=== PATIENT | male | born 1950 | race Caucasian/White ===

== ENCOUNTER 2016-09-24 00:24 | Inpatient (IN) | payer OTHER ==
[~2016-09-24] VITALS: Ht 175.3 cm; Wt 84.5 kg
--- NOTE | 2016-09-24 03:33 | NUR ---
PT ARRIVED TO ROOM 119 FROM ER VIA STRETCHER. TALKATIVE, STRONG SMELL ALCOHOL. FELL "COUPLE DAYS AGO". STATES HE DRINKS ONLY ON THE WEEKENDS BUT DRINK 1/2 GALLON WHISKEY WHEN HE DRINKS. STATES HE ONLY EATS ONE MEAL A DAY. LIKES HIS TV, AND LIKES TO SMOKE. RIGHT LEG SPLITED, INDWELLING WATKINS. PLAN SURGERY IN AM.
--- NOTE | 2016-09-24 03:37 | NUR ---
PT ARRIVED ON FLOOR ABOUT 0315. PT IS ALERT AND ORIENTED X4. PT IS NEUROLOGICALLY INTACT, CIWA IS A 0 AT THIS TIME. PAIN IS TOLERABLE AT THIS TIME STATED BY PT. PT IS NPO AT THIS TIME. PRE OP BATH WILL BE GIVEN IN A FEW MINUTES. ALL LOBES ARE CLEAR, DORSALIS PEDIS IS +2 ON RLE, LEG IMMOBILIZER IS IN PLACE.
--- NOTE | 2016-09-24 04:50 | NUR ---
PT ARRIVED ON FLOOR AROUND 0315. V/S ARE WNL, PRE-OP BATH HAS BEEN DONE, PRE-OP CHECKLIST HAS BEEN DONE FAR POSSIBLE. PT IS ALERT AND ORIENTED. LEG IMMOBILIZER IS IN PLACE, GAUZE ON RIGHT KNEE IS BLOODY. CIWA THUS FAR HAS BEEN 0. DORSALIS PEDIS ON RIGHT FOOD IS +1 BUT TOES ARE WARM TO TOUCH. PT SEEMS STILL INTOXICATED AT THIS TIME. NO OTHER ISSUES HAVE BEEN NOTED AT THIS TIME.
--- NOTE | 2016-09-24 07:21 | NUR ---
REPORT RECIEVED FROM MISA MÉNDEZ. PT IS OFF FLOOR FOR SURGERY.
--- NOTE | 2016-09-24 09:14 | NUR ---
09/24/16 0914 Lu Shepard 0905 PATIENT ARRIVES TO PACU, AWAKE BUT CONFUSED. REORIENTED PATIENT TO HOSPITAL AND SITUATION ( THAT HE HAD A SEVERE BROKEN LEG, THAT WAS REPAIRED IN OR). PATIENT NOW ALERT AND ORIENTED X3. DENIES PAIN. MASK AT 10 LITERS. 0911 OXYGEN DECREASED TO 6 LITERS. PATIENT DENIES COMPLAINTS. ASKS QUESTIONS APPROPRIATELY.
--- NOTE | 2016-09-24 10:08 | NUR ---
PT TO FLOOR AT 0955 WITH RN FROM PACU. PT AWAKE AND TALKING. OXY MASK AT 4L. BLOOD SHOWING ON GAUZE APPROX PALM SIZED. EXTERNAL FIXATION IN PLACE. PT RATES PAIN 6/10 BUT DESATS WHEN GIVEN MEDS PER HAND TUFTER. PT ASKED FOR REMOTE. PULSE OX ON SATS 93%. PEDAL PULSE STRONG. WIGGLES TOES ON COMMAND.
--- NOTE | 2016-09-24 10:45 | NUR ---
PATIENT MEDICATED WITH 0.5 MG IV DILAUDID FOR 8/10 PAIN TO RIGHT LOWER EXTREMITY. PATIENT RESTING IN BED. CALL LIGHT IN REACH. DR LYNCH IN TO EVALUATE PATIENT. NOTIFIED PRIMARY RN.
--- NOTE | 2016-09-24 11:04 | NUR ---
VITAL SIGNS TAKEN, STARTED MAINTAINENCE IVF. PATIENT HAS A VISITOR AT BEDSIDE. PATIENT HAS REMOVED OXYGEN. ROOM AIR O2 SATS 90-92%. CONT PULSE OX IN PLACE.
--- NOTE | 2016-09-24 11:09 | NUR ---
PLACED PT ON 2L NC ROOM AIR O2 SATS 84%. AFTER ONE MINUTE SATS ARE 92%
--- NOTE | 2016-09-24 11:20 | EKG ---
[facility] [address] [facility] [place] [address] Signed Normal sinus rhythm Normal ECG No previous ECGs available Confirmed by OLIVE LYNCH MD ([id number]) on 09/24/2016 11:20:01 AM Electronically Signed By: OLIVE LYNCH MD 09/24/16 1120 PATIENT NAME: UMUMELE Nadine Electrocardiogram DATE OF : 52 PHYSICIAN: OLIVE LYNCH MD REPORT #: [id number] REPORT IS CONFIDENTIAL AND NOT TO BE RELEASED WITHOUT AUTHORIZATION
--- NOTE | 2016-09-24 11:25 | NUR ---
PT STATES HE IS UNCOMFORTABLE NOT NECESSARILY PAIN. RATES 5. HUNG TRANCEMIC ACID. DR LYNCH JUST FINISHED ASSESSING PT AND ORDERED SOME MEDS. AWAITING PHARM VERIFICATION.
--- NOTE | 2016-09-24 11:53 | NUR ---
PT DROWSY. WILL VISIT LATER.
--- NOTE | 2016-09-24 12:37 | NUR ---
PT BACK FROM CT. STATES IT WENT WELL AND FEELS OK. DRAINAGE ON DRESSING UNCHANGED.
--- NOTE | 2016-09-24 14:34 | NUR ---
PT SLEEPING SOUNDLY. UPDATE FROM STAFF, PATIENT LIVES ALONE. DOES NOT HAVE FAMILY INVOLVED. HAS A COUPLE FRIENDS THAT HAVE CALLED AND VISITED. CASE MANAGMENT WILL CONTINUE TO FOLLOW.
--- NOTE | 2016-09-24 14:51 | NUR ---
PT STATES HIS PAIN IS WELL CONTROLLED RIGHT NOW AND ORDERED DINNER. DENIES N\V OR ANY CONCERNS. PULSE STRONG. GAUZE SHOWS SLIGHTLY MORE DRAINAGE THAN BEFORE.
--- NOTE | 2016-09-24 15:17 | NUR ---
PT EATING LUNCH\DINNER TOLERATING WELL. VERY TALKATIVE. DENIES CONCERNS. RATES PAIN 5/10. GIVEN BEER WITH LUNCH AFTER CALLING HOSPITALIST.
--- NOTE | 2016-09-24 17:01 | NUR ---
ADMINISTERED SCHEDULED VALIUM. PT NOW SLEEPING. REINFORCED DRESSING WHILE PT SLEPT. NEPHEW IN ROOM. STATES PT DRINKS A LOT DURING THE FIRST OF THE MONTH AND THEN SLOWS THE MONTH GOES ON.
--- NOTE | 2016-09-24 18:22 | NUR ---
PT RATES PAIN LOW 3\10. GETTING VALIUM AND BEER FOR POSSIBLE DTS. LOW ON CIWA. 2L NC. PALM SIZED SHADOW ON DRESSING, REINFORCED. WATKINS. PEDAL PULSES GOOD.
--- NOTE | 2016-09-24 19:40 | NUR ---
pt laying in bed, appears asleep, rr wnl and unlabored. recieved report from dayshift rn. light pink drainage on inside of right knee, pt was recieved from pacu in this condition per daysdonft rn, also area was reinforced with gauze 1 time today, will continue to monitor closely. pt in no distress at this time. call light in reach.
--- NOTE | 2016-09-24 20:32 | NUR ---
PT WOKE AND REQUESTED SANDWICH BOX, GAVE SANDWICH BOX. PT VERY THANKFUL AND APPRECIATIVE. PT IS DROWSY AT THIS TIME, BUT DOES HOLD APPROPRIATE CONVERSATION, PLEASENT AND TALKATIVE. FRESH ICE PACKS PLACED ON RIGHT LEG. RIGHT LEG ELEVATED ON TWO PILLOWS AND HIS HEEL IS FLOATING. CONTINUOUS PULSE OXIMETER IN PLACE, O2 SAT 94 ON 2L VIA NC. GAVE PT INCENTIVE SPIROMETER, EDUCATED ON USE, PT PRACTICED. RATED PAIN AT 5/10, GAVE SCHEDULED OXYCODONE FOR PAIN. WATKINS DRAINING FREELY. PEDAL PULSES PRESENT BILATERAL. PT HAS NO FURTHER NEEDS AT THIS TIME. CALL LIGHT IN REACH.
--- NOTE | 2016-09-24 22:58 | NUR ---
PT AWAKE, WATCHING TV. ENJOYS TELLING LIFE STORIES. DRAINAGE ON DRESSING HAS GROWN A SMALL AMOUNT, MARKED AREA, APPROX 7 INCHES IN DIAMETER. BP IS STABLE, HR 94, WILL CONTINUE TO MONITOR.
--- NOTE | 2016-09-24 23:43 | NUR ---
PT RATES PAIN AT 3/10 AT THIS TIME. WATCHING TV, NO DISTRESS AT THIS TIME. NO FURTHER NEEDS.
--- NOTE | 2016-09-25 01:10 | NUR ---
PT RATES PAIN AT 3/10, STATES "ITS WAY BETTER NOW." GAVE CRACKERS PER REQUEST. ICE TO RIGHT LEG. PT CONTINUES TO SCORE A 3 ON CIWA. PLEASENT. APPEARS CONTENT EATING CRACKERS AND WATCHING TV. CALL LIGHT IN REACH. DRAINAGE REMAINS IN MARKED AREAS.
--- NOTE | 2016-09-25 01:42 | NUR ---
PT COMPLAINED OF 7/10 PAIN, STATES "I MUST HAVE MOVED IT A LITTLE WHEN I FELL ASLEEP." GAVE DILAUDID IV FOR PAIN. RIGHT LEG IS ELEVATED ON 2 PILLOWS, HEEL REMAINS FLOATING. NO FURTHER NEEDS. CALL LIGHT IN REACH.
--- NOTE | 2016-09-25 02:02 | NUR ---
pt rates pain at 6/10, states "its more sharp pains here and there, not the constant anymore." gave scheduled oxycodone.
--- NOTE | 2016-09-25 02:26 | NUR ---
PT APPEARS TO BE SLEEPING. RR WNL AND UNLABORED. O2 SAT 90%, HR 91.
--- NOTE | 2016-09-25 04:44 | NUR ---
PT RATES PAIN AT 5/10, STATES "ITS NOT THROBBING LIKE IT DID, IT'S JUST KIND OF IRRITATING RIGHT NOW." GAVE DILAUDID PO FOR PAIN. GAVE PT MORE CRACKERS PER REQUEST. PT HAS HAD GREAT APPITITE TONIGHT. CIWA SCORE 2. CALL LIGHT IN REACH. NO FURTHER NEEDS.
--- NOTE | 2016-09-25 05:56 | NUR ---
PT USED INCENTIVE SPIROMETER, DEMONSTRATED CORRECT USE. PT RATES PAIN AT 3/10, STATES "HARDLY ANY PAIN AT ALL."
--- NOTE | 2016-09-25 06:01 | NUR ---
PT DID VERY WELL LAST NIGHT. ALERT AND ORIENTED X4, PLEASENT DEMEANOR, VERY TALKATIVE. DRESSING HAS SEROSANGENOUS DRAINAGE IN THE INSIDE OF KNEE, APPROXIMATLEY 7 INCHES IN DIAMETER, DRAINAGE WAS MARKED EARLY IN SHIFT AND HAS BEEN UNCHANGED SINCE THEN. ICE PACKS ON AND OFF OVERNIGHT. CIWA SCORE HAS STAYED AT A 2. PAIN WELL CONTROLLED OVERNIGHT, THIS MORNING PT RATED PAIN AT 3/10. GREAT APPITITE. SLEPT ON AND OFF LAST NIGHT. PT VERY POLITE.
--- NOTE | 2016-09-25 07:42 | NUR ---
REPORT RECIEVED FROM MISA RAMIREZ. DR GRAY REINFORCED DRESSING. PT SLIGHTLY NAUSEOUS THIS MORNING AFTER EATING ALL NIGHT. ASHLEY ADMINISTERED ZOFRAN.
--- NOTE | 2016-09-25 10:05 | NUR ---
PICC INSERTION NOTE. I WAS ASKED BY DR GRAY TO EVALUATE PT FOR POSSIBLE PICC INSERTION. AFTER REVIEWING THE CHART AND INTERVIEWING THE PT NO ABSOLUTE CONTRAINDICATIONS WERE FOUND. MELE WOULD BENIFIT FROM A PICC DUE TO HIS DIFFICULT ACCESS AND NEED FOR CORRECTION IV ANTIBIOTICS. HE IS ALSO AT RISK FOR DT ALTHOUGH MEDICAL STAFF ARE TRYING TO PREVENT THIS. RISKS AND COMPLICATIONS OF PICC LINES WERE DISCUSSED WITH THE PT AND INFORMED CONSENT SIGNED PRIOR TO THE START OF THE PROCEDURE. FULL CDC RECOMENDATIONS REGARDING INFECTION PREVENTION WERE FOLLOWED FOR THE DURATION OF THE PICC INSERTION AND STERILE DRESSING APPLICATION. THE RIGHT BASILIC VEIN WAS ACCESSED ON THE FIRST ATTEMPT AND THERE WERE NO DIFFICULTIES ADVANCING THE GUIDE WIRE, DILATOR, OR PICC. BRISK DARK RED NONPULSATILE BLOOD WAS SEEN FLOWING FROM THE INTRODUCER. THE PICC WAS INSERTED TO TO A PRE MEASURED LENGTH OF 45 CM WITH 3 CM OUTSIDE THE PT FOR 48CM TOTAL LINE LENTGH. A CXR WAS TAKEN WHICH SHOWED THE PICC IN A CENTRAL LOCATION. RADIOLOGY CONFIRMED THAT THE LINE WAS OK TO USE. THE PT UNDERSTANDS THAT HE NEEDS TO SEEK MEDICAL ATTENTION FOR ANY QUESTIONS REGARDING HIS PICC AND INFORMATION REGARDING PICC LINES WAS LEFT WITH THE PT.
--- NOTE | 2016-09-25 12:28 | NUR ---
ASSISTED PATIENT TO BED SIDE TO URINATE. CHANGED LINENS. BED BATH DONE. SKIN CARE AND SHAMPOO DONE. PATIENT WAS NOT ABLE TO URINATE. HE'S SITTING STRAIGHT UP IN BED EATING LUNCH AND WATCHING TV. NO OTHER NEEDS AT THIS TIME.
--- NOTE | 2016-09-25 12:47 | NUR ---
PT EATING LUNCH AFTER GETTING A BED BATH. CALLED DOWN TO GET A BEER IT DID NOT COME ON TRAY. APPEARS TO BE GETTING A LITTLE BIT AGITATED. WILL DO CIWA.
--- NOTE | 2016-09-25 13:08 | NUR ---
MISA DUNN MENTIONED THAT PT WOULD REALLY LIKE TO HAVE SOMEONE PLAY CHECKERS WITH HIM. I CONTACTED ONE OF OUR VOL-JAMESON. HE IS GOING TO TRY TO COME AFTER WORK. KELBY MADE ARRANGEMENTS TO ACQUIRE CIRCULATION SUPERVISOR BOARDS FOR PT'S USE.
--- NOTE | 2016-09-25 14:00 | NUR ---
PT AWAKE AND TALKING TO DR AND MED STUDENTS. DRESSING REMAINS DRY ON EXTERIOR TODAY. RATES PAIN MINIMALLY, STATES HIS OLD SHOULDER INJURY IS HURTING MORE THAN THE LEG.
--- NOTE | 2016-09-25 14:44 | NUR ---
PT WAS IN BED, SOMEWHAT ALERT, TRYING TO FINISH HIS LUNCH. ONCE HE REALIZED I WAS WITH HIM, ALL HE COULD TALK ABOUT WAS NEEDING TO URINATE-BUT COULDN'T. HE MENTIONED HIS NURSE, SO I ASKED HIM IF HE WANTED ME TO GET HER FOR HIM. HE SAID HE THINKS MAYBE HE NEEDS A CATHETER. I WAS ABLE TO CONNECT WITH HIS RN. WILL FOLLOW NEEDED
--- NOTE | 2016-09-25 15:00 | NUR ---
CALLED DR GRAY REGARDING PT'S INABILITY TO URINATE. BLADDER SCANNED FOR JUST OVER 500. HE OK'D WATKINS PLACEMENT FOR 24HOURS. PT TOLERATED WELL. ASSISTED BY CONCEPCIÓN HILARIO.
--- NOTE | 2016-09-25 15:55 | NUR ---
PT HAD MULTIPLE FLUIDS THAT NEED TO RUN CONCURRENTLY, NOT COMPATIBLE. STARTED A NEW IV ON THE LEFT HAND. PT TOLERATED WELL.
--- NOTE | 2016-09-25 17:28 | NUR ---
PT HAS FAMILY IN ROOM. UPDATED ON PT STATUS PER PT REQUEST. VERY HAPPY TO HAVE GUESTS. LEFT ARM APPEARS TO BE BACK TO NORMAL AFTER IV INFILTRATED EARLIER TODAY. PT DENIES PAIN OR DISCOMFORT.
--- NOTE | 2016-09-25 18:34 | NUR ---
PT SWITCHED TO ROSIO TODAY. WORKED WITH PT. PICC PLACED AND PER. LH IV PLACED. RATES PAIN LOW AT 05/31. CIWA 16-GIVEN 1MG VALIUM. BED BATH. DRESSING REINFORCED WITH ABDS. MULTIPLE BOUTS OF EMESIS AFTER HE STICKS HIS FINGER DOWN THROAT AFTER EATING TOO MUCH. INSTRUCTED KITCHEN TO ONLY BRING NORM. AMTS OF FOOD!
--- NOTE | 2016-09-25 19:05 | NUR ---
BEDSIDE SHIFT REPORT RECEIVED FROM SHAUN. PT IS CURRENTLY SITTING UP IN BED, VISITING WITH VOLUNTEER. PT HAS IVF INFUSING WNL. RA. EXTERANAL FIXATOR IN PLACE, SMALL AMOUNT OF SHADOWING PRESENT ON GAUZE. PT DENIES REQUESTS AT THIS TIME.
--- NOTE | 2016-09-25 20:42 | NUR ---
ASSESSMENT COMPLETED. PT IS ALERT/ORIENTED. REPORTS 4/10 PAIN, SCHEDULED OXYCODONE GIVEN. LUNGS CLEAR, RA. HR REGULAR. BOWEL TONES ACTIVE. DRESSING TO RIGHT LEG IN PLACE, SMALL AMOUNT OF SHADOWING. SUDHAKAR AND SCD TO LEFT LEG. EXTERANAL FIXATION IN PLACE. RIGHT LEG ELEVATED ON TWO PILLOWS, HEEL DANGLING. WATKINS IN PLACE DRAINING FREELY. SCHEDULED ATIVAN GIVEN. PT NOW SLEEPING. PICC HAS GOOD BLOOD RETURN, FLUSHES EASILY, IVF INFUSING WNL. WILL CONTINUE TO MONITOR.
--- NOTE | 2016-09-25 23:16 | NUR ---
PT CURRENTLY SLEEPING, NO APPARENT DISTRESS. RESPIRATIONS EVEN AND UNLABORED. WILL CONTINUE TO MONITOR.
--- NOTE | 2016-09-26 00:54 | NUR ---
IN TO START VANCO INFUSION. PT SLEEPING SOUNDLY. RESPIRATIONS EVEN AND UNLABORED. NO APPARENT DISTRESS. WILL CONTINUE TO MONITOR.
--- NOTE | 2016-09-26 02:11 | NUR ---
ASSESSMENT COMPLETED. PT REPORTS 6/10 PAIN IN RIGHT LEG, SCHEDULED OXYCODONE GIVEN. SCHEDULED ATIVAN GIVEN. LUNGS CLEAR, RA. HR REGULAR. BOWEL TONES ACTIVE. WATKINS DRAINING FREELY. DRESSING UNCHANGED FROM PREVIOUS ASSESSMENT, EXTERNAL FIXATOR IN PLACE. PT HAS GOOD CMS, CAN WIGGLE TOES. SUDHAKAR AND SCD TO LEFT LEG. RIGHT LEG ELEVATED WITH 2 PILLOWS, HEEL IS DANGLING. PT DENIES FURTHER REQUESTS, CALL LIGHT IS WITHIN REACH.
--- NOTE | 2016-09-26 04:26 | NUR ---
PT CURRENTLY SLEEPING, NO APPARENT DISTRESS. RESPIRATIONS ARE EVEN AND UNLABORED. WILL CONTINUE TO MONITOR.
--- NOTE | 2016-09-26 04:45 | NUR ---
RECEIVED CALL FROM DR. GRAY, NEW ORDER TO MAKE PT NPO. DRINKS REMOVED AT THIS TIME, PT STATES UNDERSTANDING.
--- NOTE | 2016-09-26 05:59 | NUR ---
PT HAD GOOD NIGHT, SLEPT MAJORITY OF SHIFT. PAIN WELL CONTROLLED WITH SCHEDULED OXYCODONE. SCHEDULED VALIUM GIVEN, NO NEED FOR PRN DOSES. WATKINS IN PLACE DRAINING FREELY, DID NOT D/C THIS AM PER DR. GRAY, PT IS GOING TO O.R. LATER TODAY. NPO, NO NAUSEA. SUDHAKAR AND SCD TO LEFT LEG. RIGHT LEG ELEVATED ON TWO PILLOWS, HEEL FLOATING. GAUZE DRESSING TO RIGHT LEG HAS SMALL AMOUNT OF SHADOWING, EXTERNAL FIXATOR IN PLACE. GOOD PEDAL PULSES, CMS INTACT, PT ABLE TO WIGGLE TOES. VANCO TROUGH AT 1630. PICC TO RIGHT ARM HAS GOOD BLOOD RETURN, FLUSHES EASILY, D5NS +20MEQ K+ @125ML/HR. IV ABX: VANCO AND ZOSYN.
--- NOTE | 2016-09-26 07:00 | NUR ---
BEDSIDE HANDOFF REPORT RECEIVED FROM FIBERGLASS BOAT MAKER RN. PT RESTING IN BED. PT NPO FOR OR TODAY. PT DENIES NEEDS AT THIS TIME.
--- NOTE | 2016-09-26 09:15 | NUR ---
PT RESTING IN BED. PT STATES PAIN 6/10, STATES IT IS ABOUT THE SAME, TOLERABLE, SCHEDULED OXYCODONE GIVEN. PT ON ROOM AIR, O2 SATS >92%, LUNG SOUNDS CLEAR. PT NPO FOR SURGERY TODAY, DENIES NAUSEA, BOWEL TONES ACTIVE. PT WITH EXTERNAL FIXATOR TO RLE, WRAPPED IN GAUZE, PT ABLE TO WIFFLE TOES, PULSE PALPABLE, TOES WARM. LEG ELEVATED ON 2 PILLOWS. PT WITH SCD, SUDHAKAR HOSE AND HEEL PROTECTOR TO LLE. IV FLUIDS AND VANCO INFUSING. PT SIGNED CONSENT FOR OR. PT DENIES NEEDS AT THIS TIME.
--- NOTE | 2016-09-26 11:18 | NUR ---
PT REQUESTING PAIN MEDICATION. PT RATING PAIN 8/10 TO RIGHT KNEE. 0.5 MG IV DILAUDID GIVEN. IV VANCO COMPLETED. FRIEND AT BEDSIDE. PT DENIES NEEDS AT THIS TIME.
--- NOTE | 2016-09-26 13:05 | NUR ---
PT TO OR WITH DAY SURGERY RN. LR ON STRAIGHT TUBING INFUSING. EARLENE SENT WITH RN.
--- NOTE | 2016-09-26 14:49 | NUR ---
09/26/16 1449 Krystle Garcia REPORT FROM GUM MACHINE FILLER.
--- NOTE | 2016-09-26 15:45 | NUR ---
PT RECEIVED FROM PACU. PT RESTING IN BED. ON ROOM AIR, O2 SATS >92%, LUNG SOUNDS CLEAR. PT LLE EXTRENAL FIXATOR IN PLACE, GAUZE CDI. PT PULSE PALPABLE, CAP REFILL <3 SECONDS, PT ABLE TO MOVE TOES. PT DENIES PAIN. PT IV FLUIDS INFUSING D5NS +20K AT 125 ML/HR. PT REQUESTING TO EAT, DENIES NAUSEA, BOWEL TONES ACTIVE, ASSISTED WITH ORDERING DINNER. PT WITH SCD, SUDHAKAR MARQUEZE TO LLE. PT WITH WATKINS IN PLACE, DRAINING CLEAR YELLOW URINE. PT DENIES NEEDS AT THIS TIME.
--- NOTE | 2016-09-26 16:30 | NUR ---
PT RESTIN IN BED. PT STATES PAIN TOLERABLE AT THIS TIME. CMS INTACT, RLE ELEVATED ON 2 PILLOWS. PT TOLERATING REGULAR DIET, DENIES NAUSEA. PT DENIES NEEDS AT THIS TIME.
--- NOTE | 2016-09-26 17:43 | NUR ---
PT RESTING IN BED, EATING DINNER, FAMILY AT BEDSIDE. PT DENIES PAIN. IV THIAMINE INFUSION COMPLETED, IV FLUSHED, SALINE LOCKED. PT VSS. PT DENIES NAUSEA. ON ROOM AIR, O2 SATS >92%. PT DENIES NEEDS AT THIS TIME.
--- NOTE | 2016-09-26 18:18 | NUR ---
PT TO OR TODAY FOR I/D WITH ABX BEAD AND CEMENT PLACEMENT. PT ALERT, FOREGETFUL. PT ON ROOM AIR, CONTINUOUS PULSE OX, O2 SATS >92%. PT WITH EXTERNAL FIXATOR TO RLE, PULSE PALPABLE, CMS INTACT, ELEVATED ON 2 PILLOWS, HEEL FLOATED. PT WITH SCD, SUDHAKAR HOSE TO LLE. PT BOWEL TONES ACTIVE, TOLERATING REGULAR DIET, DENIES NAUSEA. PAIN CONTROLLED WITH SCHEDULED OXYCODONE, IV DILAUDID GIVEN X1. PT WITH WATKINS IN PLACE, QS.
--- NOTE | 2016-09-26 18:48 | NUR ---
IV VANCO INFUSING. PT RESTING IN BED. PT DENIES NEEDS AT THIS TIME.
--- NOTE | 2016-09-27 00:14 | NUR ---
PATIENT REQUESTS LUNCH BOX
--- NOTE | 2016-09-27 05:03 | NUR ---
PATIENT REPOSITIONED IN BED, PILLOW UNDER LEFT SIDE, RLE REMAINS ELEVATED ON 2 PILLOWS. GOOD PEDAL PULSE AND CMS INTACT TO RLE. PAIN WELL MANAGED AT THIS TIME WITH SCHEDULED MEDICATIONS. PATIENT DENIES ANY COMPLAINTS.
--- NOTE | 2016-09-27 05:43 | NUR ---
PATIENT C/O BREAKTHRU PAIN AFTER REPOSITIONING. RATED SHARP AND 8/10 TO RLE. PATIENT MEDICATED WITH BREAKTHRU PAIN ORDER PO DILAUDID.
--- NOTE | 2016-09-27 07:00 | NUR ---
BEDSIDE HANDOFF REPORT RECEIVED FROM BUILDING INSULATION INSTALLER RN. PT RESTING IN BED. IV FLUIDS AND ABX INFUSING. WATKINS CATH IN PLACE. PT DENIES NEEDS AT THIS TIME.
--- NOTE | 2016-09-27 08:29 | NUR ---
PATIENT AWAKE RESTING IN BED. I GOT HIM FRESH ICE WATER. PATIENT STATED THE ONLY THING HE NEEDED WAS FOOD. I CALLED DOWN AND HE HAS BREAKFAST ORDERED. SHOULD BE HERE SHORTLY. CALL LIGHT WITHIN REACH.
--- NOTE | 2016-09-27 09:24 | NUR ---
PT RESTING COMFORTABLY IN BED. PT STATES PAIN ABOUT THE SAME 6-7/10, GIVEN SCHEDULED OXYCODONE. PT LUNG SOUNDS CLEAR, ON ROOM AIR, 02 SATS 95%. IV VANCO, IV THIAMINE, IV ZOSYN INFUSING. PT BOWEL TONES ACTIVE, DENIES NAUSEA, TOLERATING REGULAR DIET, PT REQUESTING ADDITIONAL BREAKFAST. WATKINS CATH REMOVED PER MD ORDER. PT RLE ELEVATED, PULSE INATCT, CMS INTACT. SMALL AMOUNT OF SEROSANGUINOUS DRAINAGE AROUND PIN SITES AND MEDIAL THIGH. PT DENIES NEEDS AT THSI TIME.
--- NOTE | 2016-09-27 10:39 | NUR ---
CALLED PER PHARMACY REQUEST TO NOTIFY OF SUSCEPTIBILITY REPORT. STATES HE WILL CONTACT INFECTIOUS DISEASE FOR RECOMMENDATIONS. NO NEW ORDERS.
--- NOTE | 2016-09-27 11:30 | NUR ---
PT REQUESTING BEERS WITH MEALS. NO ORDER. MD CALLED, TELEPHONE ORDER TO CONTINUE 2 BEERS WITH MEALS WITH CIWA.
--- NOTE | 2016-09-27 11:43 | NUR ---
PT RESTING IN BED. PT STATES PAIN TOLERABLE, 08/31, PT DENIES NEED FOR PAIN MEDICATION AT THIS TIME.
--- NOTE | 2016-09-27 12:22 | NUR ---
PT RESTING IN BED. CMS INTACT, PULSES PALPABLE. RLE ELEVTAED. PT EATING LUNCH, DENIES NAUSEA. PT DENIES NEEDS AT THIS TIME. PT DUE TO VOID BY 1500.
--- NOTE | 2016-09-27 14:25 | NUR ---
SCHEDULED VALIUM HELD DUE TO PT DROWSINESS. PT RESTING IN BED, EASILY FALLS ASLEEP DURING CONVERSATION, AROUSABLE TO VOICE.
--- NOTE | 2016-09-27 15:55 | NUR ---
NOTIFIED THAT PT HAS NOT VOIDED SINCE REMOVING WATKINS CATH AT 0900, BLADDER SCAN FOR 200ML. TELEPHONE ORDER FOR 1L NS BOLUS NOW, RBVO.
--- NOTE | 2016-09-27 17:53 | NUR ---
PT RESTING IN BED. PT UNABLE TO VOID, BLADDER SCAN FOR 425 ML. PT ENCOURAGE TO CONTINUE ATTEMPTING TO VOID. PT DENIES NEEDS AT THIS TIME.
--- NOTE | 2016-09-27 18:20 | NUR ---
PT UNABLE TO VOID, BLADDER SCAN FOR 425. PREVIOUS ORDER TO INSERT CATH FOR BLADDER SCAN VOLUME >500 ML. MD CALLED TO UPDATE AND CLARIFY ORDER, MD VERBAL ORDER TO FOLLOW PREVIOUS ORDER.
--- NOTE | 2016-09-27 18:40 | NUR ---
PT ORIENTED, DROWSY THROUGHOUT SHIFT, 1400 VALIUM HELD. PT PAIN TOLERABLE, 6/, SCHEDULED OXYCODONE, PT DENIES NEED FOR ADDITIONAL PAIN MEDICATION. PT WATKINS CATH REMOVED AT 0900, DUE TO VOID, ORDER TO INSERT WATKINS CATH FOR BLADDER SCAN >500. PT TOLERATING REGUALR DIET, DENIES NAUSEA, RECEIVED BEERS WITH MEALS. PT RECEIVED 1L FLUID BOLUS. PICC LINE DRESSING TODAY. PT WITH EXTERNAL FIXATOR TO RLE, PULSE PALPABLE, CMS INTACT. PT WITH SCD, SUDHAKAR HOSE TO LLE.
--- NOTE | 2016-09-27 20:31 | NUR ---
WATKINS CATHETER PLACED FOR BLADDER SCAN OF 508ML PER MD ORDER. 550ML RETURN
--- NOTE | 2016-09-27 23:01 | NUR ---
PATIENT C/O 12/31 BREAKTHRU PAIN, PATIENT REPOSITIONED AND MEDICATED
--- NOTE | 2016-09-28 02:00 | NUR ---
PATIENT REPOSITIONED IN BED, RLE REMAINS ELEVATED ON 2 PILLOWS, CMS INTACT.
--- NOTE | 2016-09-28 06:09 | NUR ---
PATIENT RESTED WELL DURING NIGHT WITH ONE EPISODE OF BREAK THRU PAIN. RLE CMS INTACT WITH STRONG PEDAL PULSE, ELEVATED ON PILLOWS. IV FLUIDS AND ABX THERAPY CONTINUE. WATKINS PLACED FOR RETENTION AND REMOVED THIS AM.
--- NOTE | 2016-09-28 07:05 | NUR ---
BEDSIDE HANDOFF REPORT RECEIVED FROM SWIMMING INSTRUCTOR RN. PT RESTING IN BED. IV FLUIDS AND ZOSYN INFUSING. PT DENIES NEEDS AT THIS TIME.
--- NOTE | 2016-09-28 08:39 | NUR ---
PATIENT WAS REPOSITIONED IN BED AND GIVEN A BEDBATH BY THIS NEUROLOGY TECH.
--- NOTE | 2016-09-28 08:45 | NUR ---
PT RESTIGN IN BED. PT ALERT/ORIENTED. PT RATING PAIN 6/10 TO RIGHT LEG, GIVEN SCHEDULED OXYCODONE. PT TAKING GOOD ORAL INTAKE, IV FLUIDS DISCONTINUED. IV THIAMINE/MULTIVITAMINE, IV ZOSYN INFUSING. PICC LINE TO RIGHT ARM, FLUSHING, BLOOD RETURN. PT WITH EXTERNAL FIXATOR TO RLE, LEG ELEVATED ON PILLOWS, PULSE PALPABLE, CMS INTACT. PT WITH SCD/SUDHAKAR HOSE TO LLE. PT EATING BREAKFAST, DENIES NAUSEA, BOWEL TONES ACTIVE. PT WITHOUT BM, GIVEN MIRALAX. PT DENIES OTHER NEEDS AT THIS TIME.
--- NOTE | 2016-09-28 09:57 | NUR ---
Patient is sitting up in bed watching tv. Patient has not been able to void during this content assistant's shift. Will notify this patient's primary nurse.
--- NOTE | 2016-09-28 10:30 | NUR ---
PT RESTING IN BED. PT STATES PAIN 6/10, PT STATES PAIN TOLERABLE. PT DENIES NEEDS ATTHIS TIME.
--- NOTE | 2016-09-28 11:50 | NUR ---
PT DUE TO VOID, UNABLE TO VOID. BLADDER SCAN FOR 315 ML. ENCOURAGED PT TO CONTINUE TO TRY TO VOID.
--- NOTE | 2016-09-28 12:22 | NUR ---
PT WORKED WITH PHYSICAL THERAPY, ABKE TO SIT AT EDGE OF BED. ATTEMPTED TO VOID WHILE SITTING, UNABLE TO VOID. ASSISTED BACK TO BED. PT EATING LUNCH.
--- NOTE | 2016-09-28 13:37 | NUR ---
PT REQUESTING PAIN MEDICATION. PT RATING PAIN 8/10 TO RLE. PT GIVEN SCHEDULE OXYCODONE. PT RESTING IN BED. PT UNABLE TO VOID, ENCOURAGED TO CONTINUE ATTEMPTING. PT DENIES OTHER NEEDS AT THIS TIME.
--- NOTE | 2016-09-28 14:10 | NUR ---
Patient resting in bed. Vitals taken.
--- NOTE | 2016-09-28 16:05 | NUR ---
PT UNABLE TO VOID. BLADDER SCAN FOR 535 ML. INDWELLING URINARY CATHETER INSERTED PER ORDER. PT TOLERATED WELL. INITAL 650 ML DRAINED. PT RESTING IN BED. PT DENIES NEEDS AT THIS TIME.
--- NOTE | 2016-09-28 16:15 | NUR ---
PT LUNG SOUNDS WITH RHONCHI AND EXPIRATORY WHEEZE, PT DENIES SOB, ENCOURAGED I/S, O2 SATS >92% ON RA, CONTINUOUS PULSE OX IN PLACE. MD NOTIFIED, MD TO BEDSIDE, MD ORDER TO CONTINUE MONITORING, MD TO CHANGE MULTIVITAMIN TO PO. PT RATES PAIN 6/10 TO RLE, DENIES NEED FOR PAIN MEDICATION. PT BOWEL TONES ACTIVE, DENIES NAUSEA. PT CMS INTACT, RLE ELEVATED ON 2 PILLOWS. SCD, SUDHAKAR HOSE TO LLE. PT WITH GENERALIZED EDEMA TO UPPER EXTREMITIES. PT DENIES NEEDS AT THIS TIME.
--- NOTE | 2016-09-28 17:35 | NUR ---
Patient resting in bed. Dinner at bedside. Patient awakened to eat. Vitals taken.
--- NOTE | 2016-09-28 18:23 | NUR ---
PT ALERT/ORIENTED, DROWSY AT TIMES. PT PAIN 6/10, SCHEDULED OXYCODONE. PT ON ROOM AIR, O2 SATS >92%, LUNG SOUNDS WITH RHONCHI AND EXPIRATORY WHEEZE, ENCOURAGED I/S. WATKINS REMOVED THIS AM, PT UNABLE TO VOID, WATKINS PLACED FOR URINARY RETENTION AT 1605. PT WITH GENERALIZED EDEMA TO UPPER EXTREMITIES. PT RLE WITH EXTERNAL FIXATOR, GAUZE DRESSING, DRAINAGE UNCHANGED, LEG ELEVATED, CMS INTACT. SCD, SUDHAKAR YOUNGER TO LLE. IV ZOSYN.
--- NOTE | 2016-09-28 19:05 | NUR ---
BEDSIDE REPORT RECEIVED FROM OFFGOING NURSE. PT SITTING UP IN BED, DROWSY. DENIES NEEDS AT THIS TIME. CALL LIGHT WITHIN REACH. MEAL TRAY REMOVED FROM ROOM, BEERS X 2 UNOPENED REMAIN ON BEDSIDE TABLE.
--- NOTE | 2016-09-28 19:18 | NUR ---
CALLED DR. GRAY TO PROVIDE UPDATE ON INABILITY TO VOID AND REISERTION OF INDWELLING CATHETER PER ORDER. VERBAL ORDER TO KEEP WATKINS CATHETER IN PLACE FOR URINARY RETENTION.
--- NOTE | 2016-09-28 19:53 | NUR ---
PT ASSESSMENT COMPLETED. PT RATES PAIN 8/10 TO RLE, SCHEDULED OXYCODONE GIVEN. EXPIRATORY WHEEZE NOTED TO LLL, PT ABLE TO DEMONSTRATE APPROPRIATE IS USE. RLE REMAINS ELEVATED ON 2 PILLOWS. CMS INTACT, PEDAL PULSES PRESENT. SCD AND TEDS TO LLE. WATKINS CATH DRAINING YELLOW URINE. PT DENIES OTHER NEEDS AT THIS TIME. CALL LIGHT WITHIN REACH.
--- NOTE | 2016-09-28 21:00 | NUR ---
PT SITTING UP IN BED WATCHING TV, EATING CHOCOLATE PIE. PT DENIES OTHER NEEDS AT THIS TIME. STATES THAT HIS PAIN IS AROUND A 7. ALL PRECAUTIONS REMAIN IN PLACE, RLE CONTINUES TO BE ELEVATED ON 2 PILLOWS. DRESSING C/D/I. IS @ BEDSIDE. CALL LIGHT WITHIN REACH.
--- NOTE | 2016-09-28 23:03 | NUR ---
PT MOANING IN HIS SLEEP. PT WAKES EASILY. STATES THAT PAIN IS 9/10, "IT HAS NOT HURT THIS BAD IN A LONG TIME". BREAKTHROUGH PAIN MEDICATION GIVEN. PT FALLS BACK TO SLEEP EASILY, WAKES EASILY. CALL LIGHT WITHIN REACH.
--- NOTE | 2016-09-29 00:42 | NUR ---
PT UTILIZES CALL LIGHT, REQUESTS ADDITIONAL ICE BAGS. PT STATES THAT PAIN IS 4/10, "MUCH BETTER, IT WAS THE ICE." ICE PLACED TO AFFECTED LEG OVER GAUZE. LEG REMAINS ELEVATED ON PILLOWS. SCD AND SUDHAKAR HOSE IN PLACE. PILLOW PLACED UNDER PT'S L HIP FOR PRESSURE RELIEF. PT DENIES OTHER NEEDS AT THIS TIME. CALL LIGHT WITHIN REACH.
--- NOTE | 2016-09-29 02:13 | NUR ---
PT ASSESSMENT COMPLETED. PT RESTING WITH EYES CLOSED, RESPIRATIONS EVEN AND UNLABORED. PT APPEARS TO BE SLEEPING. WAKES EASILY. PT AGAIN RATES PAIN 4/10, STATES THAT ICE IS VERY HELPFUL. DRESSING TO RLE HAS SMALL AMOUNT OF DRY SANGUINOUS DRAINAGE. RLE CONTINUES TO BE PROPPED ON PILLOWS. SCD AND SUDHAKAR PRESENT TO LLE. PT FALLS BACK TO SLEEP EASILY. CALL LIGHT WITHIN REACH.
--- NOTE | 2016-09-29 04:40 | NUR ---
PT RESTING IN BED WITH EYES CLOSED. RESPIRATIONS EVEN AND UNLABORED. PT APPEARS TO BE SLEEPING. CALL LIGHT WITHIN REACH.
--- NOTE | 2016-09-29 05:25 | NUR ---
PT SLEPT MOST OF SHIFT, DROWSY AT OTHER TIMES. SCHEDULED OXYCODONE, BREAKTHROUGH DIALUDID GIVEN X 1. PT STATES ICE TO RLE IS EXTREMELY HELPFUL. LUNGS CLEAR/DIM. IS AT BEDSIDE. YELLOW URINE PRESENT IN WATKINS. SCD AND SUDHAKAR HOSE TO LLE. RLE ELEVATED ON PILLOWS X 2. PICC HEP LOCKED, IV ZOSYN.
--- NOTE | 2016-09-29 06:35 | NUR ---
pt turned, had small hard bm,cleansed, lotion to buttocks area, bed decub left buttocks moist, pink colored, dry rough skin over both buttocks present. f/c patent, draining yellow urine.
--- NOTE | 2016-09-29 07:45 | NUR ---
patient requested his chocolate cream janis william mrnolberto before breakfast nurse said it was okay for him to have it. he is currently waiting for his breakfast as well.
--- NOTE | 2016-09-29 08:02 | NUR ---
PT RESTINGIN BED. PT RATES PAIN 6/10, SCHEDULED OXYCODONE GIVEN. PT LUNG SOUNDS RHONCHI THROUGHOUT, ENCOURAGED I/S, COUGH, DEEP BREATHING, O2 SATS 95% ON ROOM AIR, DENIES SOB. PT WITH RLE ELEVATED ON PILLOWS, CMS INTACT, DRESSING WITH OLD DRIED DRAINAGE. SCD, SUDHAKAR HOSE TO LLE. PT WITH GOOD APPETITE, EATING BREAKFAST, DENIES NAUSE. PT WITH WATKINS CATH IN PLAC, DRAINING CLEAR YELLOW URINE. PT DENIES OTHER NEEDS AT THIS TIME. DISCUSSED PLAN OF CARE. PT RECEIVING ZOSYN.
--- NOTE | 2016-09-29 09:24 | NUR ---
I TOOK THE PATIENTS VITAL SIGNS, HE WAS RESTING, WILL RETURN TO CHANGE GWON AND DO A QUICK BED BATH!
--- NOTE | 2016-09-29 10:20 | NUR ---
PT RATING PAIN 6/10. PT PREMEDICATED FOR PHYSICAL THERAPY WITH 4 MG PO DILAUDID. PT DENIES NEEDS AT THIS TIME.
--- NOTE | 2016-09-29 11:30 | NUR ---
PHYSICAL THERAPIST TO BEDSIDE. PT 2PA TO STAND. ZOSYN INFUSION COMPLETED, PICC LINE HEPARIN LOCKED. PT RATING PAIN 6/1O, ICE PACK PROVIDED. PT DENIES NEEDS AT THIS TIME.
--- NOTE | 2016-09-29 14:30 | NUR ---
PT REQUESTING PAIN MEDICATION. PT RATING PAIN 7-8/10. GIVEN 8MG PO DILAUDID. FAMILY AT BEDSIDE. PT DENIES OTHER NEEDS AT THIS TIME.
--- NOTE | 2016-09-29 16:40 | NUR ---
PT RESTING IN BED. PT ARTING PAIN -09/30. PT LUNG SOUNDS WITH RHONCHI AND DIMINISHED BASES, ENCOURAGED I/S AND CPT. PT ON ROOM AIR. PT WITH GOOD APPETITE, DENIES NAUSEA, BOWEL TONES ACTIVE. PT RLE WITH EXTERNAL FIXATOR, DRAINAGE UNCHANGED, CMS INTACT, ELEVATED ON 2 PILLOWS, ICE PACK IN PLACE. PT WITH SCD AND SUDHAKAR HOSE TO LLE. FLEY IN PLACE DRAINING CLEAR YELLOW URINE. PT DENIES NEEDS AT THIS TIME.
--- NOTE | 2016-09-29 18:25 | NUR ---
PT ALERT/ORIENTED, SLEEPY AT TIMES, SLURRED SPEECH AT BASELINE. PT ON ROOM AIR. PT PAIN RECEIVING SCHEDULED OXYCODONE AND PRN DILAUDID. PT WORKED WITH PHYSICAL THERPAY, 2PA ASSIST TO STAND. PT TOLERATING REGULAR DIET, NPO AT MIDNIGHT FOR OR TOMORROW. RLE ELEVATED IN PILLOWS, EXTERNAL FIXATOR, SHADOWING PRESENT ON INNER THIGH AND AROUND PIN SITES. PT WITH SCD, SUDHAKAR HOSE IN PLACE. PT WITH WATKINS CATH, QS. PT HAD BM TODAY.
--- NOTE | 2016-09-29 19:15 | NUR ---
BEDSIDE REPORT RECEIVED FROM OFF GOING NURSE. PT STATES THAT HE HAS BEEN READING OVER DIGOXIN INFORMATION AT BEDSIDE. PT DENIES NEEDS AT THIS TIME. CALL LIGHT WITHIN REACH.
--- NOTE | 2016-09-29 20:20 | NUR ---
PT ASSESSMENT COMPELTED. PT ON 2 LPM OF O2 SECONDARY TO OXIMETER READING OF 88%, SAO2 UP TO 91-94% ON O2. PT ABLE TO COUGH, DEEP BREATH, AND DEMONSTRATE IS USE APPROPRIATELY. SHADOWING PRESENT TO RLE DRESSING ON INTERIOR ASPECT OF THIGH AND AROUND PIN SITES. CMS INTACT TO AFFECTED EXTREMITY. FRESH ICE BAGS APPLIED TO SITE PER PT REQUEST. SCD AND SUDHAKAR PRESENT TO LLE. PT RATES PAIN 8/10, SCHEDULED PAIN MEDICATION PROVIDED. PT DENIES OTHER NEEDS AT THIS TIME. CALL LIGHT WITHIN REACH.
--- NOTE | 2016-09-29 22:51 | NUR ---
BEDSIDE REPORT RECEIVED FROM OFFGOING NURSE. PT RESTING WITH EYES CLOSED, WAKES EASILY. PT STATES HE WOULD LIKE ADDITIONAL BEERS FROM [place], REMINDED THAT HE HAS BEERS AT BEDSIDE. PT STATES UNDERSTANDING. PT ALSO STATES UNDERSTANDING REGARDING NPO STATUS AT MIDNIGHT. PT DENIES NEEDS AT THSI TIME. CALL LIGHT WITHIN REACH.
--- NOTE | 2016-09-30 00:22 | NUR ---
PT RESTING IN BED WITH EYES CLOSED, APPEARS TO BE SLEEPING. PT WAKES EASILY. PT'S LEG REPOSITIONED ON PILLOWS AND ICE REPLACED. PT STATES IT IS MUCH MORE COMFORTABLE AFTERWARDS. ALL FOOD AND DRINK REMOVED FROM BEDSIDE. PT GIVEN LEMON SWABS. PT DENIES OTHER NEEDS AT THIS TIME. CALL LIGHT WITHIN REACH.
--- NOTE | 2016-09-30 02:50 | NUR ---
PT ASSESSMENT COMPLETE. PT STATES "I HATE TO ADMIT IT, BUT I'M NOT HAVING ANY PAIN." RHONCI AUSCULTATED TO ALL LUNG EMANUEL, DOES NOT CLEAR WITH COUGH. PT REMAINS ON 2 LPM O2, DENIES SOB. DRESSING REMAINS UNCHANGED FROM LAST ASSESSMENT, SHADOWING PRESENT TO MEDIAL THIGH AND AROUND PIN SITES. ICE BAGS REFILLED AND REPLACED TO SITE. CMS IS INTACT. SCD AND SUDHAKAR PRESENT TO LLE. PT REQUESTS TO SIT ON BED LOCKWOOD, STATES "MILK OF MAGNESIA IS WORKING." PT WILL CALL WHEN FINISHED ON BED LOCKWOOD. CALL LIGHT WITHIN REACH.
--- NOTE | 2016-09-30 04:51 | NUR ---
PT SLEEPING MOST OF SHIFT, DROWSY WHILE AWAKE, SLURRED SPEECH. O2 @ 2LPM FOR SA02 DOWN TO 88%, RHONCI TO ALL LUNG EMANUEL. RLE:GAUZE DRESSING WITH SHADOWING TO INNER THIGH AND PIN SITES, ELEVATED ON 2 PILLOWS, CMS INTACT, PEDAL PULSES STRONG. SUDHAKAR AND SCD TO LLE. WATKINS DRAINING QS, PALE YELLOW URINE. NPO SINCE MIDNIGHT, GLYCERINE SWAB AT BEDSIDE.
--- NOTE | 2016-09-30 07:36 | NUR ---
PT IN BED, AWAKE, ALERT, ORIENTED TO SELF, MONTH BUT NOT YEAR, AND ORIENTED TO PLACE. ORIENTED TO EVENTS, AND TO WHO THE CURRENT US PRESIDENT IS. ON 2L O2, SAT 93%. LUNGS HAVE EXPIRATORY WHEEZES IN BILATERAL UPPER LOBES, RHONCHI AND EXPIRATORY WHEEZES IN LOWER LOBES. CMS TO BILATERAL LOWER EXTREMITIES INTACT.
--- NOTE | 2016-09-30 08:26 | NUR ---
PT LEFT FLOOR VIA BED ACCOMPANIED BY CHAY West RN TO GO TO DAY SURGERY FOR SCHEDULED SURGERY. LEFT FLOOR AT 0825.
--- NOTE | 2016-09-30 10:24 | NUR ---
09/30/16 1024 Krystle Garcia REPORT FROM BUSINESS OFFICE TECHNICIAN.
--- NOTE | 2016-09-30 11:26 | NUR ---
PT RETURNED TO ROOM 120 FROM PACU, ACCOMPANIED BY MISA ARREDONDO. BACK TO ROOM AT 1115. RECIEVED BEDSIDE REPORT FROM MISA ARREDONDO. PT AWAKE, ALERT. CMS TO BLE INTACT. EXTERNAL FIXATION REMAINS IN PLACE TO RIGHT LEG, NEW GAUZE DRESSING IN PLACE TO RIGHT LEG, C/D/I. PT RATES PAIN TO RIGHT LEG 2/10, DENIES NEED FOR PAIN MEDICATION. DENIES NAUSEA. REPORTS THAT HE IS "VERY HUNGRY". LUNCH ORDERED FOR PT. PT PROVIDED WITH FRESH ICE WATER.
--- NOTE | 2016-09-30 11:41 | NUR ---
VISITED WITH PT IN DAY SURG HE WAS BEING PREPPED FOR SURGERY. HE WAS ALERT, SOMEWHAT ORIENTED. SEEMED COMFORTABLE AND DEALING APPROPRIATELY WITH THE SURGERY TO FOLLOW. HE ASKED ME IF THEY WERE GOING TO "CUT IT OFF"? I TOLD HIM THAT I COULD NOT ANSWER THAT BUT DR GRAY CAN HELP. HE SIMPLY STATED "I'M OK IF THEY HAVE TO". PT REQUESTED PRAYER AND DR GRAY CAME IN JUST THEN. WILL CONTINUE TO FOLLOW
--- NOTE | 2016-09-30 12:17 | NUR ---
PT ATE 100% OF LUNCH: CHEESE BURGER, COLA, PUDDING, AND APPLE JUICE. HAS RLE ELEVATED ON 2 PILLOWS, ICE PACKS TO RLE. CMS INTACT. PT DENIES NAUSEA, DENIES PAIN.
--- NOTE | 2016-09-30 13:28 | NUR ---
PT LAYING IN BED, AWAKE, ALERT, ORIENTED TO SELF, SURROUNDINGS, PLACE, MONTH, YEAR. DENIES PAIN AT THIS TIME. CMS TO RLE INTACT, GAUZE AROUND EXTERNAL FIXATION SITES C/D/I.
--- NOTE | 2016-09-30 14:08 | NUR ---
PT EATING TURKEY SANDWICH, SIPPING BUD LIGHT BEER. DENIES NAUSEA. REPORTS 7/10 PAIN TO RIGHT LEG. SCHEDULED OXYCODONE GIVEN.
--- NOTE | 2016-09-30 14:44 | NUR ---
PT GIVEN DILAUDID 8 MG PO PRN FOR REPORT OF 7/10 PAIN. PT WILL BE TRANSFERING VIA AMBULANCE TO [facility] SHORTLY.
--- NOTE | 2016-09-30 15:20 | NUR ---
PT TRANSFERED TO [facility] FROM BED WITH ASSIST FROM NURSING STAFF AND punch out crew member. LEFT FLOOR ACCOMPANIED BY punch out crew member AT 1515, FOR NON EMERGENT GROUND TRANSFER TO [facility] FOR HIGHER LEVEL OF CARE. TRANSPORTED BY [facility].
--- NOTE | 2016-09-30 16:00 | NUR ---
REPORT CALLED TO ROSANNE RN ON 9K AT [facility], THE UNIT PT IS TRANSFERING TO. QUESTIONS ASKED AND ANSWERED, ROSANNE VERBALIZED UNDERSTANDING, ACKNOWLEDGED THAT HE WOULD CALL FLOOR AT [phone] WITH ANY FURTHER QUESTIONS.
--- NOTE | 2016-10-07 09:57 | OR ---
[facility] [address] [place], [place] [address] Signed DATE OF SERVICE: 09/24/2016 PREOPERATIVE DIAGNOSIS: Grade 2 open right femur fracture. POSTOPERATIVE DIAGNOSIS: Grade 2 open right femur fracture. PROCEDURE PERFORMED: Irrigation and debridement of skin, subcutaneous tissue, and bone, right knee. Open reduction and external fixator application, right knee. Insertion of antibiotic beads, right femur. SURGEON: Valentina Sunshine MD PACKAGE DESIGNER: TIKA Ascencio was present, critical for the entire procedure. She was necessary for wound closure, reduction, and dressing application. ANESTHESIA: General with a femoral block. BLOOD LOSS: 150 mL. IMPLANTS: Synthes large ex-fix with 6 pins. BRIEF HISTORY: Jared is a 65-year-old gentleman who apparently had a ground-level fall at home which he has quite frequently. He was found down, and EMS transported him to the hospital. Upon the arrival, he was noted to have a small 1.5 cm piece of bone sticking out of the medial knee.He was transported to the emergency department, where radiographs revealed a displaced supracondylar femur fracture. On further inspection and talking to him, this probably was opened for about 2 days that he has been lying on the floor. Risks and benefits of operative intervention were discussed with him. He was admitted until morning and brought to the operating room this morning. Since the fracture had already been opened for 2 days, I did not feel it was necessary to bring him currently in the middle of the night and do this 4 hours earlier. Once the consent was obtained, he was taken to the operating room. After adequate anesthesia, he was placed on the operating room table. All downside pressure points were well padded. He was noted to have substantial grade 2 to maybe grade 3 decubitus ulcers to the left buttocks and presacral area. The leg was prepped and draped in a standard sterile fashion. No tourniquet was applied. The 2 cm wound medially was then extended an inch and a half distally and an inch and a half proximally. Electronically Signed By: VALENTINA SUNSHINE MD 10/07/16 0957 PATIENT NAME: JARED SANZ OPERATIVE REPORT DATE OF : 52 PHYSICIAN: VALENTINA SUNSHINE MD REPORT #: [id number] REPORT IS CONFIDENTIAL AND NOT TO BE RELEASED WITHOUT AUTHORIZATION [facility] [address] [place], [place] [address] Signed This was further extended another inch. There were multiple pieces of bone that were debrided out of the wound. The bone margins on the medial epicondylar axis were debrided as well. There was a large amount of blood clot, foreign debris, and soft tissue, this was all debrided sharply. Once this was accomplished, we were able to reduce the fracture. We then washed out the entire area with 6 L of antibiotic irrigation. This was done under pulse avage. We then reduced the fracture under biplanar fluoroscopy and held it with a 2.0 K wire. A reasonably good reduction was obtained, although there was substantial bone loss medially and anteriorly. The skin was noted to have about a 3 x 5 cm area that was either completely gone or was substantially thinned by the bone rubbing from underneath for the day and a half or 2 days hewas on the floor. This was still viable and had good blood flow, so I did not excise the portion that had good blood flow. The external fixator was applied. Next, two 5.0 Schanz pins were placed in the anterior femur, 2 were placed in the anterior tibia, and this was bridged using 2 carbon fiber rods. A 4.5 pin was then placed in the medial epicondyle percutaneously anterior to the open wound. This held the distal femur in position. The second one was then placed in the distal femoral shaft and nasal bridge with 2 more rods. The rods were then cross-linked, and excellent stable construct was obtained. The final radiograph showed good reduction. We then made the antibiotic beads using one packet of cement, and 17 beads were implanted into the wound in the distal femur through the anterior cortical defect. These were placed on a #5 FiberWire. Soft tissue was then closed provisionally on the margins using #2-0 nylon; however, due to that area of anterior medial skin that was extremely compromised, I elected to leave that alone, pack the wound, and will come back in 2 days. The wound was packed with saline-soaked sponge and crisscrossed with vessel loops. The pin sites and wounds were dressed with sterile gauze and Kerlix. He was awakened and taken to the recovery room in satisfactory condition. Prior to taking him out of the operating room, we did roll him over and cleaned his bottom and inspect the wounds and video document these. Valentina Sunshine MD BA/Danni /[id number] Electronically Signed By: VALENTINA SUNSHINE MD 10/07/16 0957 PATIENT NAME: JARED SANZ OPERATIVE REPORT DATE OF : 52 PHYSICIAN: VALENTINA SUNSHINE MD REPORT #: [id number] REPORT IS CONFIDENTIAL AND NOT TO BE RELEASED WITHOUT AUTHORIZATION
--- NOTE | 2016-10-15 07:15 | OR ---
[facility] [address] [place], [place] [address] Signed DATE OF PROCEDURE: 09/26/16 PREOPERATIVE DIAGNOSIS Grade 2 open femur fracture on the right, status post external fixation. POSTOPERATIVE DIAGNOSIS Grade 2 open femur fracture on the right, status post external fixation. PROCEDURE PERFORMED I and D of femur with delayed primary closure and exchange of antibiotic beads. CASHIER ASSOCIATE Karis Hutton PA-C. Karis was present for the entire surgery and was necessary for positioning, retraction, and wound closure. ANESTHESIA: General. BLOOD LOSS: Minimal. SPECIMENS: We did take deep cultures at this time. BRIEF HISTORY Jared is a 65-year-old gentleman with pain in his knee after sustaining an open fracture that was open for several days, lying on the floor. Deep cultures are growing E. coli and gram-positive bacteria. The patient was washed out on the day of his admission, and antibiotic beads were placed, and the wound was left open. He was brought back today for possible closure. Risks, benefits, and alternatives discussed at length. He elected to proceed. DESCRIPTION OF PROCEDURE Once consent was obtained, he was taken to the operating room. After adequate anesthesia, the leg was prepped and draped in standard sterile fashion. The leg was prepped with Hibiclens. The previous stanton were removed. The antibiotic beads were removed, and wound was assessed. There was essentially no further necrosis of the tissue. The skin flap still appeared to be viable. The wound was copiously irrigated with 3 L of antibiotic solution under pulse lavage. Once this was completed, the new antibiotic beads were produced. 12 beads were placed in the wound deep over a #2 suture. The wound was then closed completely using 2-0 nyl on suture in a wound winch-type configuration. The wound was then dressed with sterile gauze, and he was awakened and taken to the recovery room in satisfactory condition. All sponge, needle, and instrument counts were correct. Valentina Sunshine MD Electronically Signed By: VALENTINA SUNSHINE MD 10/15/16 0715 PATIENT NAME: JARED SANZ OPERATIVE REPORT DATE OF : 52 PHYSICIAN: VALENTINA SUNSHINE MD REPORT #: [id number] REPORT IS CONFIDENTIAL AND NOT TO BE RELEASED WITHOUT AUTHORIZATION [address] [place] [address] Signed ROBBI/Modl /[id number] Electronically Signed By: VALENTINA SUNSHINE MD 10/15/16 0715 PATIENT NAME: JARED SANZ Nadine OPERATIVE REPORT DATE OF : 52 PHYSICIAN: VALENTINA SUNSHINE MD REPORT #: [id number] REPORT IS CONFIDENTIAL AND NOT TO BE RELEASED WITHOUT AUTHORIZATION
--- NOTE | 2016-10-15 07:15 | OR ---
[facility] [address] [place], [place] [address] Signed DATE OF PROCEDURE: 09/30/16 PREOPERATIVE DIAGNOSIS: Open femur fracture, right. POSTOPERATIVE DIAGNOSIS: Open femur fracture, right. PROCEDURE PERFORMED Irrigation and debridement of skin and subcutaneous tissue, and bone of right femur. Exchange of antibiotic beads. SURGEON: Valentina Sunshine MD. PRODUCTION TOOL ENGINEER: None. BLOOD LOSS: Minimal. ANESTHESIA: General. SPECIMENS: Cultures showed gram-positive cocci on Gram stain. BRIEF HISTORY Jared is a 65-year-old gentleman with pain in his leg. He had an open femur fracture that was open for several days and was contaminated. Initial culture showed gram-positive cocci and E coli; however the gram-positive cocci did not ever grow out. Antibiotics were switched from Vanco and Zosyn to just Zosyn. He was washed out again and cultures and Gram stain were negative at that point. The wound began draining. He was brought back today for possible ORIF; however, there were copious amounts of serous drainage from the wound. This was cultured and Gram positive cocci are shown on Gram stain. The wound was opened up and the antibiotic beads were removed. The wound was then debrided sharply. Wound margins and the subcutaneous tissue as well as the bone edges which were however necrotic. This was irrigated using 6 L of antibiotic irrigation under pulse lavage. 12 new antibiotic beads were then placed deep in the wound using tobramycin impregnated cement. The wound was closed under some tension after debriding the margins. There was one area that has very, very tenuous blood supply. I am afraid this is going to come to needing a flap to get it to heal. I elected not to proceed with the ORIF given the fact that it is still clearly contaminated. We will continue him on the Zosyn and add Vancomycin back in. His wounds were dressed with Mepilex dressing, 4 x8, and Kerlix. He tolerated the procedure well. Sponge, needle, instrument counts were correct. Electronically Signed By: VALENTINA SUNSHINE MD 10/15/16 0715 PATIENT NAME: JARED SANZ Nadine OPERATIVE REPORT DATE OF : 52 PHYSICIAN: VALENTINA SUNSHINE MD REPORT #: [id number] REPORT IS CONFIDENTIAL AND NOT TO BE RELEASED WITHOUT AUTHORIZATION [address] [place] [address] Signed Valentina Sunshine MD BA/Modl /[id number] Electronically Signed By: VALENTINA SUNSHINE MD 10/15/16 0715 PATIENT NAME: JARED SANZ OPERATIVE REPORT DATE OF : 52 PHYSICIAN: VALENTINA SUNSHINE MD REPORT #: [id number] REPORT IS CONFIDENTIAL AND NOT TO BE RELEASED WITHOUT AUTHORIZATION
--- NOTE | 2016-11-21 11:28 | DS ---
[facility] [address] [place], [place] [address] Signed DATE OF DISCHARGE: 09/30/16 ADMISSION DIAGNOSIS: Grade 2 open right femur fracture. DISCHARGE DIAGNOSIS: Grade 2 open right femur fracture. PROCEDURES PERFORMED DURING THIS HOSPITALIZATION Irrigation debridement of skin, subcutaneous tissue, and bone right knee. Open reduction, external fixator application right knee. Insertion of antibiotic beads right femur. Irrigation debridement of skin, subcutaneous tissue, and bone and replacement of the antibiotic beads with delayed partial primary closure of the wound. BRIEF HISTORY Jared is a 65-year-old gentleman who had a ground level fall, which was a frequent occurrence for him. This occurred somewhere between 2 and 4 days prior to admission. He was found down. EMS transported him to the hospital with approximately 2 inches of femur sticking out of his bone. I saw him in the Emergency Department and we emergently took him to the operating room where the first procedure was performed. He did well with pain control and was placed on Oxycodone and Fowler. He did have a little bit of alcohol withdrawal, which was treated by the Medicine service. He was taken back to the operating room 48 hours later and underwent the second debridement with partial closure, however, I was not able to get the wound completely closed. We did exchange the antibiotic beads. He was kept in the hospital for further 4 days. He will continue to have wound healing problems. I did not feel that I would be able to get the wound closed and manage his potential infection due to the severely contaminated wound. We then contacted [facility] and spoke to the surgeons there. They agreed to accept the patient for further care and he was transported by ambulance. He was discharged with his current medications and will follow up with the [facility]. Valentina Sunshine MD BA/Danni /[id number] Electronically Signed By: VALENTINA SUNSHINE MD 11/21/16 1128 PATIENT NAME: UMUJARED DISCHARGE SUMMARY DATE OF : 52 PHYSICIAN: VALENTINA SUNSHINE MD REPORT #: [id number] REPORT IS CONFIDENTIAL AND NOT TO BE RELEASED WITHOUT AUTHORIZATION
== END 2016-09-30 15:15 | disposition short-term general hospital (02) | DRG 481 ==
LOC: ED 00:24 → MS 02:27
PROVIDERS: ADMIT Specialist
PROC: 3E0V329 Introduction of Other Anti-infective into Bones, Percutaneous Approach (ICD-10-PCS; 2016-09-24)
PROC: 0SBC0ZZ Excision of Right Knee Joint, Open Approach (ICD-10-PCS; 2016-09-24)
PROC: 0QS Lower Bones, Reposition (ICD-10-PCS; principal; 2016-09-24 05:56)
PROC: 3E0U029 Introduction of Other Anti-infective into Joints, Open Approach (ICD-10-PCS; 2016-09-24 05:56)
DX: S72.401B Unspecified fracture of lower end of right femur, initial encounter for open fracture type I or II (principal); D62 Acute posthemorrhagic anemia; F10.20 Alcohol dependence, uncomplicated; R91.8 Other nonspecific abnormal finding of lung field; E87.6 Hypokalemia; F17.210 Nicotine dependence, cigarettes, uncomplicated; W19.XXXA Unspecified fall, initial encounter
CPT/HCPCS: 00400; 01230; 01250; 36415; 36556; 51702; 51798; 64447; 71010; 71260; 73560; 76942; 80048; 80053; 80069; 80076; 80202; 81001; 82306; 82550; 82607; 82728; 82746; 83540; 83735; 84425; 84466; 85025; 85045; 85610; 85730; 86850; 86900; 86901; 86922; 87070; 87075; 87077; 87186; 87205; 93005; 93010; 94667; 94668; 94762; 96365; 96375; 97110; 97163; 97530; 99285; C1713; C1751; G0480; J0330; J0690; J1100; J1170; J2250; J2274; J2370; J2405; J2543; J2704; J2795; J3010; J3360; J3370; J3411; J3475; J7030; J7060; J7120; Q9967

== ENCOUNTER 2017-10-08 04:30 | Emergency (ER) | payer OTHER ==
[~2017-10-08] VITALS: Ht 175.3 cm; Wt 84.4 kg
[2017-10-08] MEDS ORDERED: AUGMENTIN 875-1 EACH PO (05:31)
== END 2017-10-08 05:54 | disposition home or self-care (01) ==
LOC: ED 04:30
DX: K11.20 Sialoadenitis, unspecified (principal); F17.200 Nicotine dependence, unspecified, uncomplicated
CPT/HCPCS: 99283

== ENCOUNTER → 2019-05-15 | Emergency (ER) | payer OTHER ==
[~2019-05-15] VITALS: Ht 175.3 cm; Wt 84.4 kg
[~2019-05-15] MED LIST: AUGMENTIN 875-1 EACH PO
--- NOTE | 2019-05-16 07:40 | EKG ---
[facility] [address] [facility] [place] [address] Signed Atrial fibrillation with rapid ventricular response with premature ventricular or aberrantly conducted complexes Septal infarct , age undetermined ST \T\ T wave abnormality, consider inferior ischemia Abnormal ECG When compared with ECG of 24-SEP-2016 01:24, Atrial fibrillation has replaced Sinus rhythm Septal infarct is now present Non-specific change in ST segment in Lateral leads T wave inversion now evident in Inferior leads T wave amplitude has increased in Anterior leads Confirmed by LILI CUNNINGHAM MD ([id number]) on 05/16/2019 7:39:57 AM Electronically Signed By: LILI CUNNINGHAM MD 05/16/19 0740 PATIENT NAME: MELE SANZ Electrocardiogram DATE OF : 52 PHYSICIAN: LILI CUNNINGHAM MD REPORT #: [id number] REPORT IS CONFIDENTIAL AND NOT TO BE RELEASED WITHOUT AUTHORIZATION
--- NOTE | 2019-05-16 07:41 | EKG ---
[facility] [address] [facility] [place] [address] Signed Sinus rhythm with frequent premature ventricular complexes Septal infarct (cited on or before 15-MAY-2019) Abnormal ECG When compared with ECG of 15-MAY-2019 19:21, (Unconfirmed) Sinus rhythm has replaced Atrial fibrillation T wave inversion no longer evident in Inferior leads Confirmed by LILI CUNNINGHAM MD ([id number]) on 05/16/2019 7:40:59 AM Electronically Signed By: LILI CUNNINGHAM MD 05/16/19 0741 PATIENT NAME: MELE SANZ Electrocardiogram DATE OF : 52 PHYSICIAN: LILI CUNNINGHAM MD REPORT #: [id number] REPORT IS CONFIDENTIAL AND NOT TO BE RELEASED WITHOUT AUTHORIZATION
== END ==
LOC: ED 19:17
DX: J85.1 Abscess of lung with pneumonia (principal); I48.91 Unspecified atrial fibrillation; I21.4 Non-ST elevation (NSTEMI) myocardial infarction; N17.9 Acute kidney failure, unspecified; F17.200 Nicotine dependence, unspecified, uncomplicated
CPT/HCPCS: 36600; 51702; 71045; 71250; 80053; 81001; 82803; 83605; 83735; 84484; 85025; 85379; 85610; 85730; 93005; 93010; 94640; 99291; 99292; G0480; J0692; J1650; J1885; J3370; J7030; J7060

== ENCOUNTER 2021-07-11 13:02 | Inpatient (IN) | payer OTHER ==
[~2021-07-11] VITALS: Ht 175.3 cm; Wt 118.0 kg
--- NOTE | 2021-07-11 17:30 | NUR ---
REPORT RECIEVED, CARE OF PT ASSUMED AT THIS TIME. PT TRANSPORTED TO CCU VIA STRETCHER ON AIRPORT MAINTENANCE CHIEF BY HOUSE FLOAT AND BOOKKEEPERS SUPERVISOR. PT ARRIVED ON 6 L NC, SPO2 =88%. FOUR PERSON REQUIRED TO MOVE PT FROM BED TO STRETCHER.
--- NOTE | 2021-07-11 18:25 | EKG ---
[facility] [address] [facility] [place] [address] Signed Normal sinus rhythm Nonspecific T wave abnormality Abnormal ECG When compared with ECG of 15-MAY-2019 21:07, premature ventricular complexes are no longer present Criteria for Septal infarct are no longer present T wave inversion now evident in Lateral leads Confirmed by OLIVE LYNCH MD ([id number]) on 07/11/2021 6:24:58 PM Electronically Signed By: OLIVE LYNCH MD 07/11/21 1825 PATIENT NAME: MELE SANZ Electrocardiogram DATE OF : 52 PHYSICIAN: OLIVE LYNCH MD REPORT #: [id number] REPORT IS CONFIDENTIAL AND NOT TO BE RELEASED WITHOUT AUTHORIZATION
--- NOTE | 2021-07-11 18:43 | NUR ---
ASSESSMENT COMPLETED. PT NOT ALERT OR ORIENTED. RESPONDS TO VOICE, BUT ONLY MOANS. RT IN ROOM AT THIS TIME TO PLACE BIPAP ON PT. FIO2 = 75% ON BIPAP, SATURATIONS IN THE MID 90S AT THIS TIME. WATKINS CATHETER INSERTED. 300 MLS OF IMMEDIATE RETURN OF GERMAIN URINE. SYSTOLIC BLOOD PRESSURES IN THE 90S UPON ARRIVAL. NOTIFIED. IV BANNANA BAG DC'D, ONE LITER OF LR INFUSING OVER 2 HOURS AT THIS TIME. PTS HAS EXCORIATIONS, REDNESS AND BRUISING OVER ENTIRE BODY. FECES NOTED ON SEVERAL BODY SURFACES, PREDOMINATELY FEET. PT UNABLE TO ANSWER HISTORY QUESTIONS. THIS RN REMAINS AT PT BEDSIDE.
--- NOTE | 2021-07-11 19:23 | NUR ---
VITAMIN K FINISHED INFUSING. IV FLUID BOLUS CONTINUES TO INFUSE. BED SIDE REPORT GIVEN AT THIS TIME.
--- NOTE | 2021-07-11 20:15 | NUR ---
Patient laying in bed. Though there was an obvious attempt to clean him, patient still has patches of crusted matter. I shaved jerry off so the bipap mask will seal, no longer alarming at this time. Patient tolerated well. Wakes to stimulation. Excoriated areas in axilla, groin, abdominal folds, and gluteal cleft. Large, scabbed abrasion posterior left thigh. Patient was turn on side and new absorbant pads placed under him. Appears more comfortable. Lewis catheter draining mervat urine. Shampoo cap on hair. Will conintue to monitor.
--- NOTE | 2021-07-12 01:17 | NUR ---
Patient intubated by Theo ANTON, 8.0 ET Tube, 23 @ the teeth, secured and verified with chest xray. Patient tolerated procedure well. New IV started in L wrist. Dr. Tobias at bedside. Norepinephrine started briefly for soft blood pressures, stopped at 0015. Propofol at 5mcg/kg/hr for comfort, soft wrist restraints in place. Will continue to monitor.
--- NOTE | 2021-07-12 03:19 | NUR ---
Notified DR. Tobias that patient is bradycardic, Propofol is at 30, and Norepinephrine is at 7. Also obtained order for an OG tube. Will continue to monitor.
--- NOTE | 2021-07-12 03:37 | NUR ---
OG placed, verified with syringe and stethoscope. Return of green/brown bile. Marked at lip. Will continue to monitor.
--- NOTE | 2021-07-12 06:30 | NUR ---
Patient tolerated vent with decreased agitation. Will continue to monitor.
--- NOTE | 2021-07-12 08:00 | NUR ---
ORAL CARE GIVEN , SIZE 8 EET 23 @ GUM BITEBBLOCK IN PLACE MOVED TO CENT ER OF MOUTH, SUCTION DOWN EET TO GET A FAIR AMOUNT OF SECRETIONS , 0900 LIMITED WEAN TRIAL ON CPAP ENDTIDAL CLIMBED TO 60 PT HAD LOW VT AND MV AND DOCTOR WAS NOTIFIED PATIENT PLACED BA CK ON CMV 460 RR 20 . PATIENT WAS ABLE TO OPEN EYES AND SEEMED TO FOLLOW SOME INSTRUCTIONS
--- NOTE | 2021-07-12 09:29 | NUR ---
0655 - IN TO PT'S ROOM TO ASSIST LAB WITH BLOOD DRAW. AFTER SEVERAL ATTEMPTS, BLOOD DRAWN BY ZHANNA FROM ABDOMINAL VEIN. BLOOD TUBED AND LABELED BY LAB. PT WAKEFUL DURING THIS TIME, WHILE PROPOFOL WAS SHUT OFF, NOT TOLERATING WELL AND IS ATTEMPTING TO SIT UP AND PULL ARMS TOWARDS TUBES. PROPOFOL RESTARTED AT 30MCG, AND IS EASILY BACK TO RELAXED STATE. 0715 - ORAL CARE COMPLETED BY RT CARLEEN WITH SOME DEEP SUCTIONING AND SUCTION OF ORAL SECRETIONS. 0730 - ASSISTED RT CARLEEN WITH ABG DRAW, PT TOLERATED WELL. 0800 - CONTINUE WITH 1:1 CARE OF PT. ADDITIONAL IV X2 PLACED BY ZHANNA BYNUM. ATTEMPTING TO WEAN PT OFF PROPOFOL TO POTENITALLY EXTUBATE PT. 0830 - PROPOFOL DECREASED NOW FROM 30MCG TO 5MCG. PER MD ORDER, RT WILL MOVE PT TO TRIAL CPAP. 0850 - PROPOFOL PLACED ON STANDBY TO ASSIST PT IN WAKING. 0900 - PT UNABLE TO MAINTAIN PROPER VENTIALTION ON CPAP AND IS QUICKLY PUT BACK ON VENT SETTINGS WITH FI02 40%. PT ATTEMPTING TO SIT UP IN THE BED, PULL ON RESTRAINTS. PT ABLE TO FOLLOW SIMPLE DIRECTION OF NODDING HIS HEAD, SQUEEZING THE NURSES HAND, AND RELAX WHEN INSTRUCTED BY NURSE, PT NEEDS CONSISTENT REASSUARANCE AND GUIDANCE. 0920 - PROPOFOL RESTARTED AT 5MCG. LEVOPHED DRIP DC'D AT THIS TIME. PT ATTEMPTING TO WAKE AND SIT UP, BUT IS EASILY REDIRECTED TO RELAX AND LAY BACK. WILL CONTINUE TO MONITOR NEED FOR INCREASED PROPFOL. 0940 - LAB IN ROOM FOR TYPE/CROSS LAB DRAW.
--- NOTE | 2021-07-12 10:15 | NUR ---
FIRST DOSE ORAL CONTRAST GIVEN THROUGH OG TUBE. WILL REPEAT IN [address] SCAN AT 1200. PT FIGHTING THE VENT, ATTEMPTING TO SIT UP AND PULL AT TUBES. PER MD VERBAL ORDER, OK'D TO START PROPOFOL DRIP AT 5MCG TO ENCOURAGE PT TO RELAX.
--- NOTE | 2021-07-12 10:20 | NUR ---
Attempted to see pt and he is on a ventilator. Unable to answer questions.
--- NOTE | 2021-07-12 10:36 | NUR ---
LEVOPHED RESTARTED FOR SYSTOLIC BLOOD PRESSURE IN THE 80S AND LOW URINE OUTPUT (SEE EMAR). IMAGING IN ROOM TO DO CHEST XRAY THIS TIME
--- NOTE | 2021-07-12 11:00 | NUR ---
LEVOPHED AND PROPOFOL CONTINUE TO INFUSE. PT APPEARS COMFORTABLE, IS NOT FIGHTING VENT. VITAL SIGNS STABLE. NO SIGN OF FEVER NOTED. DRESSING CHANGED ON R HAND IV DUE TO SOME LEAKING. FLUIDS CONTINUE TO INFUSE. CLOSELY MONITORING BP, URINE OUTPUT, AND PT'S SEDATION LEVEL.
--- NOTE | 2021-07-12 12:14 | NUR ---
MED REC COMPLETED
--- NOTE | 2021-07-12 12:15 | NUR ---
1120 - PICC LINE ORDERED, DIANE BYNUM HERE TO PLACE. 1125 - PROPOFOL INCREASED TO 15MCG, AND LEVOPHED AT 4MCG FOR PICC PLACEMENT TO ENSURE SEDATION COMPATIBLE WITH PROCEDURE. 1130 - 43 ML DARK YELLOW URINE OUTPUT NOTED. 1140 - PICC PREP COMPLETE, DIANE, RN WILL NOW PLACE PICC, UTILIZING STERILE FIELD. 1145 - CBG 108 1215 - PICC INSERTION COMPLETE. IMAGING HERE FOR XRAY PLACEMENT CONFIRMATION. 5FR TRIPLE LUMEN NOTED WITH GOOD BLOOD RETURN. CONFIRMED.
--- NOTE | 2021-07-12 12:51 | NUR ---
PICC INSERTION NOTE: ASKED BY DR. LYNCH TO EVAL PATIENT FOR POTENTIAL PICC INSERTION. AFTER REVIEWING THE CHART, NO ABSOLUTE CONTRAINDICATIONS WERE IDENTIFIED. PATIENT UNABLE TO SIGN CONSENT FORM DUE TO BEING INTUBATED, SEDATED ON VENTILATOR. DR. LYNCH AND THIS RN SIGN CONSENT FORM FOR PATIENT. PATIENT'S RIGHT ARM WAS EVALUATED FIRST USING THE SITE RITE U/S AND THE BASILIC AND BRACHIAL VEINS WERE EASILY IDENTIFIED. THE BASILIC VEIN USING A 5FR CATHETER ESTIMATED THAT IT WOULD TAKE UP 41% OF THE VEIN DIAMETER. THE VEIN WAS EASILY COLLAPSABLE AND THE BEST CANDIDATE FOR THE PICC. FOLLOWING CDC RECOMMENDED GUIDELINES FOR STERILE PROCEDURE, THE ARM WAS STERILLY PREPPED. THE BASILIC WAS EASILY ACCESSED AFTER USING THE LIDOCAINE 1% AND BRISK NON PULSATILE BLOOD WAS RETURNED. THE GUIDEWIRE WAS THEN ADVANCED WITHOUT DIFFICULTY, FOLLOWED BY THE INTRODUCER. THE PICC WAS THEN ADVANCED SLOWLY AND THE 3CG TECHNOLOGY WAS UTILIZED. AFTER ADVANCING THE PICC IN FAR IT WAS ABLE TO, A STERILE DRESSING WAS APPLIED OVERTOP. CHEST XRAY WAS TAKEN WHICH SHOWED IDEAL PLACEMENT OF TIP OF CATHETER. RADIOLOGIST CONFIRMED THAT TIP IS AT CAVOATRIAL JUNCTION. DR. LYNCH AT BEDSIDE AND ALSO REVIEWS THE CHEST XRAY. EDUCATION MATERIAL LEFT IN CHART FOR PATIENT AND PATIENT'S NURSE EDUCATED, ALL QUESTIONS ANSWERED BEST POSSIBLE.
--- NOTE | 2021-07-12 13:49 | NUR ---
DR LYNCH UPDATED ON CURRENT LEVOPHED RATE AND PTS POOR URINE OUTPUT. ORDERS RECEIVED (SEE EMAR).
--- NOTE | 2021-07-12 15:30 | NUR ---
US IN ROOM TO COMPLETE ECHO. PT ROLLED TO L LATERAL SIDE AND TOLERATED WELL. PT CONTINUES ON PROPOFOL/LEVOPHED DRIPS. PT ROLLED AND ALLEYVEN DRESSINGS PLACED ON SACRAL AREA. DRY PILLOWCASE PLACED IN PANNUS FOLD AND UNDERNEATH SCROTUM FOR MOISTURE PROTECTION. CLEAN DRAW SHEET/WHITE CHUX PLACED UNDER PT, AND PT REPOSITIONED IN BED. PT TOLERATED CARES WELL, AND CONTINUES ON DRIPS AND FLUID BOLUS. URINE OUTPUT REMAINS MINIMALLY ADEQUATE DESPITE FLUID RESUSCITATION. MORE CLEANING OF THE EXTREMITIES COMPLETED. R HAND IV REMOVED. PICC INFUSING WELL, NO SIGNS OF LEAKING, OR INFILTRATION NOTED. PT DEEP SUCTIONED SEVERAL TIMES AND TOLERATED WELL. VENT FI02 REMAINS AT 40%, RR 18. WILL CONTINUE TO HAVE CLOSE 1:1 MONITORING.
--- NOTE | 2021-07-12 16:45 | NUR ---
pt following commands , had a good NIF/VC, vitals are stable doctor at bedside , pt sat upright oral care was provided and airway suctioned as well as the mouth. Cuff was deflated and patient was sucessfully extubated to a oxymask at 5lpm . Doctor wants patient transitioned to Bipap rest. Pt understand this and is participating in the treatment . Pt fit with large full face mask rate of 18, 32%. Will continue to monitor the patient .
--- NOTE | 2021-07-12 17:46 | NUR ---
1645 - PT EXTUBATED. PT ALERT, ANSWERING QUESTIONS APPROPRIATELY PRIOR TO EXTUBATION. PT ABLE TO FOLLOW DIRECTION OF CARLEEN FRANKLIN FOR QUICK, SUCCESSFUL EXTUBATION. PRESENT. PT PLACED ON BIPAP , WITH RR 18, FIO2 32%. PT 95-97% SPO2. 1700 - PT CONTINUES TO STAY ALERT, ORIENTED, AND ABLE TO HAVE BIG, PURPOSEFUL COUGHS. PT CONTINUES ON BIPAP, AND IS ABLE TO ASK SOME QUESTIONS ABOUT WHAT HAPPENED, AND HOW HE ENDED UP IN THE HOSPITAL. 1715 - LEVOPHED DRIP TURNED OFF. PT TOLERATING GOOD BP'S WITH MAP CONSISTENTLY ABOVE 65. PT REQUESTED TO HAVE SOFT WRIST RESTRAINTS REMVOED. PT REPORTS UNDERSTANDING THAT HE CANNOT PULL ON HIS CATHETER OR THE BIPAP. PT VERY AGREEABLE, RESTRAINTS REMOVED. CMS INTACT IN BILATERAL HANDS. 1730 - PT REQUESTING TO HAVE A SIP OF WATER, ALSO CONTINUES TO QUESTION WHAT HAPPENED, AND HOW HE ENDED UP IN THE HOSPITAL. BIPAP REMOVED, PT ASSISTED TO USE MOUTH SWAB, THEN GIVE SMALL BITES OF CRUSHED ICE, AND THEN SPOONFULS OF WATER. PT TOLERATED ALL VERY WELL. BIPAP PLACED BACK ON , FIO2 32%, RR 18. PT REQUESTED TO LISTEN TO SOME MUSIC, AND ALSO SOME WARM BLANKETS. PT CONTINUES TO HAVE MINIMAL QUANTITY SUFFICIENT URINE OUTPUT. DARK YELLOW IN COLOR. 1745 - CARLEEN, RT IN ROOM TO CHECK ON PT. BIPAP SETTINGS TO CONTINUE. REPORTS SHE WILL CONTINUE TO CLOSELY MONITOR FOR SIGNS OF DECREASED MENTATION.
--- NOTE | 2021-07-12 19:35 | NUR ---
PT VT ON PREVIOUSLY DOCUMENTED SETTINGS INITIATED BRAKE LINING FINISHER WAS NOT SUPPORTING PT NEEDS. EPAP DECREASED TO IMPROVE PRESSURE DELTA. MASK RESECURED TO FACE TO REDUCE LEAK. WOB OK INDIO WELL. BBS DIMINISHED EQUAL WITH SCATTERED COURSE SOUNDS AT THIS TIME.
--- NOTE | 2021-07-12 19:58 | NUR ---
notified DR. LYNCH ABOUT NIMV SETTING CHANGES. NO FURTHER DIRECTION GIVEN FROM MD AT THIS TIME.
--- NOTE | 2021-07-12 20:00 | NUR ---
PATIENT PULLED BIPAP MASK OFF AND IS REQUESTING A TV REMOTE. PATIENT DESATS ON ROOM AIR QUICKLY TO MID 80% Sp02. PLACED ON 6L OXYMASK, TITRATED TO 3L. PATIENT PROVIDED SPOON FULLS OF WATER AND APPEARS TO TOLERATE THIS. SCHEDULED MEDS PROVIDED. PICC FLUSHES AND RETURNS BLOOD. IVF IN 1 LUMEN; OTHERS HEP-LOCKED. PATIENT REPOSTIIONED IN BED. PROVIDED WITH TV REMOTE. PATIENT IS DEMANDING FOOD AND DRINK. IS ORIENTED TO SELF AND SURROUNDINGS BUT UNSURE OF DATE OR EVENTS LEADING UP TO HIS ADMISSION. PATIENT ASKED RECURRENT QUESTIONS AND SPEECH IS SOMEWHAT DIFFICULT TO UNDERSTAND. ENCOURAGED PAITNET TO REST.
--- NOTE | 2021-07-12 21:00 | NUR ---
PATIENT REPOSITIONED IN BED. EVENING MEDS PROVIDED PER ORDER. PATIENT TOLERATED WELL. PICC LINE FLUSHED IN ALL LUMENS AND RETURNS BLOOD. HEPA-LOCKED 2 LUMENS, IVF IN THIRD LUMEN. VS STABLE. PATIENT PROVIDED WITH ICE CHIPS WHICH HE CAN FEED HIMSELF. PATIENT IS VERY THIRSTY AND FREQUENTLY REQUESTING WATER WELL. PATIENT REQUIRES ASSISTANCE WITH THIS TO PREVENT ASPIRATION. LUNG SOUNDS ARE COARSE WITH SOME WHEEZING. PATIENT ON 4L NC; TITRATED TO 3L. OCCATIONAL MOIST COUGH NOTED WITH POOR CLEARANCE OF SECREATIONS. URINE OUTPUT IS MINIMALLY ADEQUATE. VS STABLE.
--- NOTE | 2021-07-12 21:10 | NUR ---
EVENING MEDS PROVIDED.PATIENT TOLERATING 3L OXYMASK BUT CONTINUES TO REMOVE OXYMASK. PATIENT IS AGITATED, PRN GIVEN. NO CHANGE. DISCUSSED WITH MD. NEW ORDERS TO BE PUT IN.
--- NOTE | 2021-07-12 22:00 | NUR ---
MEDS PROVIDED FOR AGITATION. PATIENT REPOSITIONED IN BED. WATKINS CARE DONE. VS STABLE. IV FLUIDS PER ORDER. PICC FLUSHED EASILY AND RETURNS BLOOD. PATIENT REQUESTING FOOD AND WATER. SIPS OF WATER PROVIDED. PATIENT DRINKS QUICKLY AND DOESN'T FOLLOW INSTRUCTIONS FOR CHIN TILT. PATIENT COUGHS AND POSSIBLY NEEDS SPEECH CONSULT. MD AWARE.
--- NOTE | 2021-07-13 | NUR ---
PATIENT HAS BEEN ON BIPAP FROM 2214 AND THIS CONTINUES. IV FLUIDS PER ORDER, SITE WNL. VS STABLE. PATIENT RESTING MORE COMFORTABLY.
--- NOTE | 2021-07-13 02:30 | NUR ---
ABX PROVIDED PER ORDER. PATIENT CONTINUES TO REST QUIETLY. HOB ELEVATED. REPOSITIONED PRN. VS STABLE.
--- NOTE | 2021-07-13 04:15 | NUR ---
PATIENT HAS TOTAL BED BATH AND LINEN CHANGE. BARRIER CREAM APPLIED TO EXCORIATED AREAS ON LEGS. UNDER PANIS AND GROIN FOLDS CLEANED AND DRIED, POWER APPLIED PER ORDER. ABSORBANT PADS IN FOLDS. TESTICLES SWOLLEN, LIFTED WITH PILLOW CASE SLING. BARRIER CREAM IN AREAS NOT COVERED WITH POWDER. PATIENT HAS WOUND ON RIGHT FLANK, SEE CHART PICTURES. COVERED WITH HYDROCOLLOID DRESSING. ALYVEN WITH MED HONEY ON COCCYX. XERO FORM TO OPEN AREA ON GLUTES AND GROIN. REST COVERED IN THICK BARRIER CREAM AND ABD PLACED AGAINST WITHOUT SECUREMENT. LEFT UPPER BACK SIDE OF THIGH WOUND COVERED WITH HYDROCOLLOID WELL. ALL WOUNDS CLEANED WITH WOUND FLOOR BROKER. PATIENT REPORTS PAIN WITH TOUCH TO OPEN AREAS. PATIENT TURNED TO RIGHT SIDE. ON OXYMASK, 3L FOR CARES. TOLERATED WELL.
--- NOTE | 2021-07-13 06:00 | NUR ---
PATIENT ON BIPAP. LABS DRAWN. VS STABLE. PATIENT REPOSITIONED.
--- NOTE | 2021-07-13 07:30 | NUR ---
REPORT RECEIVED FROM MAUREEN BYNUM. IN TO CHECK ON PT, PT RESTING WITH EYES CLOSED, WEARING BIPAP 22/8 FIO2 30%, RR 16-18, HR 50-60'S.
--- NOTE | 2021-07-13 08:09 | NUR ---
WOUND CARE RECOMMENDATION; JOHN Jha RN STOMA POWDER CRUSTING RECOMMENDED FOR MOISTURE-ASSOCIATED SKIN DAMAGE IN ROMEO AREA AND BUTTOCK AREAS. ALL SUPPLIES PROVIDED WITH INSTRUCTIONS TO APPLIED TO WOUNDS DRESSINGS NEED REPLACED.
--- NOTE | 2021-07-13 09:58 | NUR ---
PHYSICAL THERAPIST IN WITH PT DOING ROM.
--- NOTE | 2021-07-13 09:59 | NUR ---
DR LYNCH UPDATED ON PT SOMNOLENT AND URINE OUTPUT 30ML/HR FOR THE LAST TWO HOURS.
--- NOTE | 2021-07-13 10:15 | NUR ---
PT SAT UP IN BED AND BIPAP REMOVED, IS ABLE TO ANSWER QUESTIONS BUT KEEPS EYES CLOSED. TRIED A SIP OF WATER AND PT HAD WET COUGHING AFTERWARDS. TRIED PUDDING AND PT WAS ABLE TO TAKE THREE BITES WELL AND WAS ABLE TO TAKE THIAMINE BUT THEN WOULD COUGH AFTER. PT REPOSITIONED, FRESH LINENS APPLIED TO GROIN AREA WITH DESENEX POWDER.
--- NOTE | 2021-07-13 10:35 | NUR ---
DR LYNCH IN TO SEE PT
--- NOTE | 2021-07-13 11:00 | NUR ---
LR BOLUS STARTED AT 500ML/HR.
--- NOTE | 2021-07-13 11:45 | NUR ---
VBG DRAWN FROM PICC LINE, PT HAS BEEN WERAING BIPAP, OFF BRIEFLY FOR BED BATH AND HYGEINE THEN PLACED BACK ON, PT REPOSITONED AND STATES HE IS COMFORTABLE AND DENIES PAIN.
--- NOTE | 2021-07-13 12:05 | NUR ---
BEDBATH COMPLETE, 3 PA TO TURN PATIENT. NAIL AND WATKINS CARE PROVIDED. LOTION ON DRY JAYMIE AND POWDER IN CREASES. WATKINS EMPTIED. RN AT BEDSIDE TO ASSESS BACKSIDE AND BANDAGES. CALL LIGHT IN REACH, OXY MASK IN PLACE.
--- NOTE | 2021-07-13 13:11 | NUR ---
SPEECH THERAPIST IN TO DO EVAL, PT SAT UP INTO UPRIGHT POSITION AND BIPAP REMOVED, PLACED ON 4L/NC WITH SPO2 92%.
--- NOTE | 2021-07-13 15:00 | NUR ---
PT RESTING WITH EYES CLOSED, APPEARS TO BE SLEEPING, SPO2 DOWN TO 85% ON NASAL CANNULA, SWITCHED PT TO OXYMASK 4L WHILE ASLEEP.
--- NOTE | 2021-07-13 16:45 | NUR ---
PT REPOSITIONED, DRESSINGS CHANGED ON COCCYX, POWDER AND OINTMENT APPLIED TO PANUS AND SCROTAL AREA. LINENS CHANGED AND PT REPOSITIONED UP IN BED.
--- NOTE | 2021-07-13 17:45 | NUR ---
PT ATE 100% OF HIS DINNER, ASSISTED PT WITH FEEDING AND REMINDING HIM TO CLEAR THROAT AND SWALLOW, OCCASIONAL COUGHING AFTER SOME BITES NOTED. PT DENIES FURTHER NEEDS, SITTING UP IN BED WATCHING TV WITH CALL LIGHT IN HAND.
--- NOTE | 2021-07-13 20:00 | NUR ---
PATIENT CALLING OUT FOR WATER. THIS RN INTO ROOM. DISCUSSED APPROPRIATE USE OF CALL LIGHT AND NOISE LEVELS IN CCU. PATIENT AGREEABLE TO USING CALL LIGHT. ASSISTED PATIENT TO PRACTISE DUE TO POOR EYE SIGHT. PATIENT ABLE TO REQUEST REPOSTIIONING AND WATER APPROPRAITELY. THICKENED WATER PROVIDED WITH CHIN TILT AND PATIENT TOLERATED WELL.
--- NOTE | 2021-07-13 23:00 | NUR ---
PATIENT PROVIDED WITH SEROQUIL AND DISCUSSED NEED FOR REST AND PLAN TO SLEEP SOON. PATIENT INSIST HE IS NOT TIRED AND CONTINUES TO REQUEST ICE AND SIPS OF WATER. PATIENT EASILY AGITATED WHEN LIMITS ARE SET.
--- NOTE | 2021-07-14 | NUR ---
WOUND CARE DONE. PATIENT'S ARM PITS, PANIS, AND INGUINAL FOLDS ARE CLEANED WITH BARRIER WIPES; PAT DRY AND DESINEX POWDER APPLIED. THESE AREAS IMPROVED FROM 24 HOUR PRIOR. WATKINS CARE DONE; BARRIER CREAM APPLIED TO TESTICLES AND HEAD OF PENIS. THIS AREA IS LESS SWOLLEN AND SKIN APPEARS TO BE IMPROVING WELL. TESTICLES ELEVTAED WITH PILLOW CASE SLING. WOUND ON LEFT POSTERIOR THIGH HAD HYDROCOLLOID REMOVED DUE TO PARTIAL NON-ADHEARING. AREA CLEANED WITH WOUND GREENHOUSE GROWER AND PAT DRY. NEW HYDROCOLOID DRESSING APPLIED. RIGHT FLANK HAS HYDROCOLOID IN PLACE; REENFORCED WITH OBSITE AT THIS TIME. GLUTEAL CREVIS FROM THE BASE OF THE SCROTUM ALL THE WAY UP TO COCCYX IS VARIABLE LEVELS OF EXCORIATIONS. AREA CLEANED WITH WOUND GREENHOUSE GROWER AND PAT DRY. STOMA POWDER CRUSTING DONE WITH SEVERAL LAYERS OF STOMA POWDER AND BARRIER SPRAY. PATIENT TOLERATED WELL BUT IS PAINFUL TO TOUCH AND SKIN VERY FRADGIL CLOSER TO BASE OF TESTICLES. NEW DRAW SHEET, CHUCKS AND ATTENDS PLACED UNDER PATIENT. HIPS FLOATED ON PILLOWS. ORAL CARE AND FACE CLEANED. PATIENT PLACED ON BIPAP AND QUICKLY SETTLES INTO RESTING WITH EYES CLOSED. CALL LIGHT IN HAND.
--- NOTE | 2021-07-14 02:00 | NUR ---
IV ABX STARTED PER ORDER. PATIENT HAS REMOVED BIPAP MASK 2 TIMES WHILE SLEEPING. STATES HE DOESN'T MEAN TO. TAKES SIPS OF WATER AND ALLOWS MASK TO BE PUT BACK ON. AGREEABLE TO WEAR UNTIL 0500. URINE OUTPUT CONTINUES TO BE INADEQUATE; PREVIOUSLY MADE AWARE. WILL CONTINUE TO MONITOR.
--- NOTE | 2021-07-14 04:30 | NUR ---
PATIENT HAS BEEN ON BIPAP FOR ABOUT 4 HOURS AND TAKING IT OFF OCCATIONALLY WHILE SLEEPING. PATIENT IS AWAKE NOW AND HAVING ICE CHIPS. ALLOW PATIENT TO STAY ON 3L NC. REPOSITIONED IN BED.
--- NOTE | 2021-07-14 05:15 | NUR ---
PATIENT BACK ON BIPAP DUE TO DESAT WHILE SLEEPING.
--- NOTE | 2021-07-14 05:45 | NUR ---
MD NOTIFIED OF LOW URINE OUTPUT AND LAB RESULTS, POTASSIUM SPECIFICALLY. VERBAL ORDERS RECIEVED AND REAPEAT BACK TO JAIME. SEE EMAR.
--- NOTE | 2021-07-14 06:15 | NUR ---
PATIENT OFF BIPAP. MEDS AND PO FLUIDS PROVIDED. WATKINS EMPTIED. 3L NC.
--- NOTE | 2021-07-14 07:15 | NUR ---
PATIENT SLEEPING HEAVILY. WAKES BRIEFLY WHEN RN TOUCHES HIM. HOB ELEVATED. VS STABLE. WHEN ATTEMPT TO GET PATIENT TO WAKE THE PATIENT DECLINES. PATIENT PLACED ON BIPAP AND LEFT TO REST.
--- NOTE | 2021-07-14 07:30 | NUR ---
REPORT RECEIVED FROM MAUREEN BYNUM. IN TO CHECK ON PT, PT RESTING ON BIPAP WITH SPO2 93%, HR 50-60'S, RR 14-16 BIPAP AT 19/8 30%, PT APPEARS RESTFUL AT THIS TIME.
--- NOTE | 2021-07-14 08:00 | NUR ---
IN TO DO AM MEDS AND ASSESSMENT. PT HAS CONT TO SLEEP, DOES AROUSE TO VERBAL STIMULI AND HAND ON HIS SHOULDER, ASKED IF HE NEEDS ANYTHING, HE OPENS HIS EYES AND STATES "YES"WHEN ASKED IF HE IS DOING OKAY AND STATES NO WHEN ASKED IF HE NEEDS ANYTHING THEN GOES BACK TO SLEEP. LUNGS HAVE FEW COARSE SOUNDS IN UPPERS, DIM THROUGHOUT, NO WHEEZES HEARD AT THIS TIME. CONT TO MONITOR URINE OUTPUT HOURLY AND TURN PT Q2. BLOOD SUGAR CHECK=99.
--- NOTE | 2021-07-14 09:45 | NUR ---
REMOVED PT AND WOKE PT UP TO CHECK RESPONSIVENESS AND ASK IF HE WANTS BREAKFAST. ASSISTED HIM WITH EATING HIS PUREED BREAKFAST, TOLERATED WELL OTHER THAN CHOKING SOME ON HIS THICKENED WATER. BIPAP REPLACED AND PT WENT QUICKLY BACK TO SLEEP.
--- NOTE | 2021-07-14 10:30 | NUR ---
IN TO REPOSITION PT, CONTINUES ON BIPAP. HE AROUSES WITH THIS ACTIVITY, MUMBLING SOME THINGS THAT ARE HARD TO UNDERSTAND, BUT AFTER REPOSITIONING AND PILLOWS ADJUSTED HE STATES HE IS COMFORTABLE AND DOES NOT NEED ANYTHING ELSE. ATTENDS DRY, DRESSINGS ON BOTTOM INTACT.
--- NOTE | 2021-07-14 11:45 | NUR ---
DR LYNCH IN TO ASSESS PT. PT AROUSES AND WAKES UP TO VOICE. BIPAP REMOVED AND PT PLACED ON NASAL CANNULA 2L. REPOSITIONED PT AND NEW TEGADERM PLACED ON LEFT THIGH WOUND, ATTENDS CHANGED THERE WAS SOME LEAKAGE FROM A WOUND ON IT.
--- NOTE | 2021-07-14 12:15 | NUR ---
IN TO FEED PT HIS LUNCH, ATE 100% OF HIS PURREED TRAY, SLIGHT COUGHING NOTED AFTER APPLE JUICE BUT OTHERWISE DID WELL WITH IT. WEARING 2L/O2 AND SPO2 90-92%.
--- NOTE | 2021-07-14 13:30 | NUR ---
PT WORKED WITH PHYSICAL THERAPIST, SAT UP TO EDGE OF BED, GOOD MOTIVATION AND WILLING TO PARTICIPATE IN THERAPY ACTIVITES WITH [employer]IRITS AND TALKING ABOUT IMPROVING HIS STRENGTH. PT THEN REPOSITIONED BACK INTO BED.
--- NOTE | 2021-07-14 15:54 | NUR ---
REPORT GIVEN TO LYNN BYNUM AND PT TRANSFERRED OVER TO ROOM 107 WITH MISA CARREON.
--- NOTE | 2021-07-14 17:46 | NUR ---
patient 1:1 monitoring while eating, HOB elevated at 47 degree. Wound Care completed by Lizz Carmichael RN and my assistance. I/Os and VS completed. HE is a new arrival from [facility] this evening. Pureed Diet Moderate Thick Liquids WC bound prior to admit. PT did get him to the edge of bed per [facility] today. IVF, oxygen continued, with PRN BIPAP use.
--- NOTE | 2021-07-14 22:12 | NUR ---
HAVE BEEN IN PT'S ROOM MULTIPLE TIMES SINCE START OF SHIFT. PT ATE A PUDDING. WOUND CARE COMPLETED WITH MISA LOPEZ. PT USING CALL LIGHT OR CALLING OUT OFTEN AND ASKING FOR HELP WITH THINGS HE CAN DO HIMSELF. WARM BLANKET GIVEN. LIGHTS ADJUSTED PER PT'S SATISFACTION. CALL LIGHT WITHIN REACH. CONTINOUS O2 MONITORING IN PLACE.
--- NOTE | 2021-07-14 23:00 | NUR ---
PT REQUESTS REPOSITIONING. LIFT USED. HIPS FLOATED.
--- NOTE | 2021-07-14 23:57 | NUR ---
BIPAP APPLIED BY RT.
--- NOTE | 2021-07-15 01:07 | NUR ---
pt appears asleep. Bipap on.
--- NOTE | 2021-07-15 02:29 | NUR ---
pt removed BIPAP. Education provided on BIPAP.
--- NOTE | 2021-07-15 03:19 | NUR ---
URINE OUTPUT MUCH INCREASED. HAD A BM.
--- NOTE | 2021-07-15 05:10 | NUR ---
PT HAD MULTIPLE BM WOUND CARE WAS BEING APPLIED AGAIN. SHEETS CHANGED. CALL LIGHT WITHIN REACH. O2 AT 2 LPM WIT O2 SATS IN THE MID 90'S.
--- NOTE | 2021-07-15 05:52 | NUR ---
O2 SAT 70% ON 2L VIA NC. pt HAS EYES CLOSED, MOUTH BREATHING, APNEIC AT TIMES. pt WOKE TO VOICE, BiPAP PLACED 17/6 35% Fi02. pt UNHAPPY ABOUT BiPAP BUT CURRENTLY COMPLIANT. CALL LIGHT WITHIN REACH. PRIMARY RN UPDATED.
--- NOTE | 2021-07-15 11:45 | NUR ---
pATIENT HAD EMESIS AFTER EATING 2 FULL MEALS LESS THAN 2 HRS APART
--- NOTE | 2021-07-15 15:30 | NUR ---
Patient requesting to be pulled up, 2 person assist needed. PM medications given. Afternoon assessment completed.
--- NOTE | 2021-07-15 16:45 | NUR ---
PATIENT HAD A VERY LARGE SEMILIQUID PASTY INCONTINENT STOOL. WOUND CARE WAS DONE TO THE BEST OF MY ABILITY WITH CLEANING HIM UP. PATIENT IS A HEAVEY 2 PERSON ASSIST. REEDUCATED THE PATIENT ABOUT CALLING FOR ASSISTANCE.
--- NOTE | 2021-07-15 19:30 | NUR ---
Report received from day shift RN. Pt using call light and verbalizing needs appropriately. Incontinent of BM. Lewis catheter in place. Pt turned in bed with 2 person assist. Call light within reach. Will cont to monitor.
--- NOTE | 2021-07-15 20:45 | NUR ---
IN TO PROVIDE PT WITH SALTINE CRACKERS, FITO'hayde PER PTs DIET ORDER, NO FURTHER NEEDS AT THIS TIME
--- NOTE | 2021-07-15 21:20 | NUR ---
PT CALL LIGHT ON, REQUESTING BOOSTING IN BED, WITH RN, IN TO BOOST PT, THICKEND WATER REFILLED, NO FURTHER NEEDS AT THIS TIME,
--- NOTE | 2021-07-15 21:30 | NUR ---
PT CALLED AGAIN, PT IS HUNGRY AND WOULD LIKE MORE CRACKERS, WILL CHECK WITH RN TO PROVIDE
--- NOTE | 2021-07-15 22:45 | NUR ---
SCHEDULED MEDS ADMIN PER EMAR CRUSHED IN APPLESAUCE. HOB ELEVATED. NO SWALLOWING ISSUES NOTED. PICC LINE FLUSED PER PROTOCOL. BRISK BLOOD RETURN NOTED IN ALL LUMENS. HEP LOCKED PER ORDER. PRN FOR AGITATION ADMIN. VS AND I&O COMPLETE. RT IN ROOM TO FIT BIPAP MASK. PT REFUSING TO WEAR. EDUCATION PROVIDED. PT AGREEABLE TO WEAR BIPAP AT THIS TIME. CPOX IN PLACE. PT DENIES FURTHER NEEDS AT THIS TIME. CALL LIGHT IN REACH.
--- NOTE | 2021-07-15 23:00 | NUR ---
PT HAS BEEN AWAKE IN BED WITH CALL LIGHT AT HAND AND USING FREQUENTLY. PT IS MAKING MULTIPLE REQUESTS FROM REPOSITIONING, FOOD AND WATER. VSS. ADEQUATE FOOD AND FLUID INTAKE. APPEARS COMFORTABLE. CALL LIGHT WITHIN REACH. WILL CONT TO MONITOR.
--- NOTE | 2021-07-16 01:35 | NUR ---
PT RESTING WITH EYES CLOSED. AWAKENS EASILY WHEN SPOKEN TO. ATTEMPTED TO PLACE BIPAP. PT REPEATS "LEAVE ME ALONE". ATTEMPTED TO PROVIDE EDUCATION. PT NOT RECEPTIVE AND BEGINS SWINGING ARMS AT THIS RN. 2L/NC IN PLACE. SpO2 93%. RESPIRATIONS EVEN AND SHALLOW.
--- NOTE | 2021-07-16 02:09 | NUR ---
PT HAS BEEN REFUSING TO WEAR THE BIPAP. TOLERATING 02 AT 2LPM VIA N/C WITH O2 SATS AT 93%. MD NOTIFIED; NO NEW ORDERS RECEIVED. WILL CONT TO MONITOR.
--- NOTE | 2021-07-16 04:51 | NUR ---
PT HAS REMAINED IN BED WITH CALL LIGHT AT HAND. ROLAND ZHOU. WILL CONT TO MONITOR.
--- NOTE | 2021-07-16 05:07 | NUR ---
CALL LIGHT ANSWERED. PT REQUESTING "SOMETHING TO EAT." OFFERED WHAT IS AVAILABLE ON THE FLOOR AT THIS TIME THAT FOLLOWS DIET ORDERED BY MD. PT REFUSED. DISCUSSED BREAKFAST WILL BE AVAILABLE IN A COUPLE HOURS. PT AGREES TO WAIT FOR BREAKFAST.
--- NOTE | 2021-07-16 07:08 | NUR ---
PT INCONTINENT A LARGE AMOUNT OF BM. CLEANED AND CHANGED WITH MAXIMUM ASSISTANCE. ALLEVYNS DRESSINGS TO BILATERAL THIGHS CHANGED. CALL LIGHT WITHIN REACH. VERBALIZES NEEDS APPROPRIATELY.
--- NOTE | 2021-07-16 07:18 | NUR ---
REPORT RECEIVED FROM QIANA, STUDENT NURSE. PT RESTING IN BED WITH HEAD OF BED ELEVATED TO 30 DEGREES. PT ANTICIPATING BREAKFAST. PT REPORTS 8/10 BACK PAIN. PT ENCORUAGED TO GET UP TO CHAIR THIS SHIFT. PT DENIES ADDITIONAL REQUESTS OR COMPLAINTS. CALL LIGHT WITHIN REACH. BED RAILS UP.
--- NOTE | 2021-07-16 07:34 | NUR ---
MORNING ASSESSMENT AND MEDICATION DUE. PT WATCHING TV. RESTING IN BED WITH HEAD OF BED ELEVATED TO 42 DEGREES. PT AGREES TO GET UP TO CHAIR FOR BREAKFAST. HOYLER LIFT UP TO CHAIR WITH 3 PERSON ASSIST. PT NOW REPORTS 0/10 PAIN STATING "OH NO, I DON'T HAVE ANY PAIN, EVERYTHING'S FINE." PICC LINE ASSESSED WNL BRISK BLOOD RETURN NOTED FROM ALL LUMENS. LINES FLUSHED AND HEPARIN LOCKED PER PROTOCOL. ALCOHOL CAPS APPLIED. IV TO LEFT WRIST DC'D PER PROTOCOL, NO LONGER NEEDED. GAUZE AND COBAN APPLIED. PT ALERT AND OREINTED TO ALL BUT DATE/YEAR. PT FORGETFUL AT TIMES BUT REMEMBERS INSTRUCTION AND REPEATS BACK AFTER REPEATED INSTRCUTION IS GIVEN. PT ALBE TO LIFT ALL EXTREIMITIES OFF THE BED AND PUT EFFORT AGINST RESISTANCE. STRONG PLANTAR AND DORSI FLEXION NOTED. PT SWALLOWS MEDICATIONS AND SIPS OF THICKENED WATER WITHOUT ISSUE. LUNG SOUNDS DEMINISHED IN ALL LOBES. OCCATIONAL COUGH NOTED. NO SPUTUM SEEN. PT REMAINS ON 2L O2 BY NC WITH OXYGEN SATURATIONS 92-98%. ROOM AIR TRIAL ATTEMPTED. PT DROPED TO 83%. PT PLACED BACK ON 2L O2 BY NC. +2 PITTIEN EDEMA NOTED TO BLE UP THRHOUR THIGHS. SCROTUM EDMA NOTED. ABDOEMN SOFT AT THIS TIME. BOWEL TONES ACTIVE. WATKINS CATHETER IN PLACE, CATHETER CARE DONE. LIGHT YELLOW URINE NOTED IN WATKINS BAG. WOUNDS UNCHANGED. ALLEVYN DRESSINGS IN PLACE. C/D/I. PT REMAINS UP TO CHAIR. NO ADDITIONAL NEEDS AT THIS TIME. CALL LIGHT WITHIN REACH.
--- NOTE | 2021-07-16 09:48 | NUR ---
THIS RN TO ROOM TO CHECK ON PT. PT REQUESTS TO GET BACK TO BED. 2 PERSON ASSIST WITH FWW PIVOT TRANSFER BACK TO BED. PT ABLE TO STAND WITH ASSISTANCE. LOOSE STOOL SMEAR NOTED. ROMEO CARE DONE. PT ASSISTED WITH POSITIONING SELF IN BED. WARM BLANKET PROVIDED. PT DENIES PAIN AND NAUSEA. NO ADDITONAL REQUESTS OR COMPLAINTS. CALL LIGHT WITHIN REACH. BED RAILS UP.
--- NOTE | 2021-07-16 10:00 | NUR ---
INTO PATIENT ROOM TO COMPLETE ASSESSMENT, MISA CARREON AND [facility] SN AT BEDSIDE. PATIENT IN BED WATCHING TV. DISCUSSION INITIATED REGARDING POSSIBLE SNIF PLACEMENT. PATIENT NOTED TO HAVE SLURRED SPEECH AND CAN BE DIFFICULT TO UNDERSTAND. PATIENT STATES PRIOR TO HIS ARRIVAL TO THE HOSPITAL HE HAD BEEN LIVING AT THE [facility]. PATIENT STATES HE WAS ABLE TO CARE FOR HIMSELF. HE STATES HE RECVS FOOD STAMPS AND HAS A FRIEND WHO ASSISTS HIM WITH OBTAINING FOOD. PATIENT STATES HE DOES NOT HAVE A PCP, BUT APPEARS TO [facility]. PATIENT AGREES TO SHORT TERM SNIF PLACEMENT HE KNOWS HE IS UNABLE TO CARE FOR HIMSELF AT THIS TIME. PATIENT STATES HE HAS CRUTCHES AND A WC AT HOME. WHEN DISCUSSING PRIOR ALCOHOL USE THE PATIENT STATES "I DON'T DRINK THAT MUCH." PATIENT DECLINED REFERRAL TO [facility] FOR ASSISTANCE. PATIENT STATES HE WILL NOT RETURN TO DRINKING UNTIL HE HAS RETURNED TO THE [facility] AND FEELS THAT HE IS SAFE. I ADVISED PATIENT I WILL BEGIN THE PLACEMENT PROCESS BY CONTACTING THE [facility] FOR ASSISTANCE. WILL UPDATE PATIENT WHEN ABLE.
--- NOTE | 2021-07-16 10:16 | NUR ---
PATIENT NOW IN ROOM 107. HE REMAINS ON A PUREED DIET WITH SLIGHTLY THICK LIQUID. HE IS EATING 100% OF MEALS. IT IS NOTED THAT HE ASKS FOR SNACKS AT NIGHT AND NURSING PROVIDING PUREED SNACKS NEEDED. NO FURTHER NUTRITION INTERVENTION NEEDED AT THIS TIME. WILL CONTINUE TO SEND BALANCED PUREED MEALS AND SLIGHTLY THICK LIQUIDS PER SPEECH THERAPY. WILL CONTINUE TO MONITOR.
--- NOTE | 2021-07-16 10:51 | NUR ---
PATIENT STATES HE ATE MOST OF HIS BREAKFAST THIS AM. HE HAD AN OPEN CHOLEY WITH REMOVAL OF COMMON BILE DUCT STONES YESTERDAY. POC GLUCOSE TODAY 243. HE IS ON A 60 GM CONSISTENT CARB DIET. I EXPLAINED THIS DIET TO HIM. HE DOES NOT FOLLOW A DIABETIC DIET OF ANY KIND AT HOME. HIS COOKS. PATIENT IS NOT HUNGRY IN THE MORNING, MAYBE EATS A SANDWICH OR OTHER SNACK FOR LUNCH, THEN HAS 2 PLATES OF FOOD FOR DINNER. HE USUALLY HAS ICE CREAM FOR DESSERT. HE ASKED IF HE SHOULD STOP EATING ICE CREAM BECAUSE IT HAS SUGAR IN IT AND I SAID NO, BUT HE SHOULD BE EATING ONLY 1/2 CUP OR SO. HE DOES NOT CHECK HIS BLOOD SUGARS AT HOME. HE LOVES MEAT AND POTATOES, RARELY EATS VEGETABLES OR FRUIT. A 60 GM CONSISTENT CARB DIET WILL HELP BALANCE OUT HIS BLOOD SUGARS WHILE HERE. NO FURTHER NUTRITION INTERVENTION NEEDED AT THIS TIME. WILL CONTINUE TO MONITOR.
--- NOTE | 2021-07-16 11:38 | NUR ---
MEDICATION DUE. PT RESTING IN BED. 2 PERSON ASSIST WITH FWW PIVOT ASSIST UP TO CHAIR. STOOL SMEAR NOTED. PT ABLE TO STAND WHILE ROMEO CARE IS DONE. ADDITIONAL ALLEVYN APPLIED TO RIGHT GLUTEAL AREA WHERE RAW SKIN IS NOTED. MEDICATION GIVEN. PT DENIES PAIN AND NAUSEA. PT REMAINS UP TO CHAIR. NO ADDITIONAL NEEDS AT THIS TIME. CALL LIGHT WIHTIN REACH.
--- NOTE | 2021-07-16 12:28 | NUR ---
PT SHOUTING DOWN THE BARBOZA. THIS RN TO ROOM. PT REPORTS HE "FORGOT" HE HAD A CALL LIGHT. PT REPORTS HE HAS HAD AN INCONTINANT BOWEL MOVEMENT. PT UP TO STAND WITH FWW AND TRANSFER TO BEDSIDE COMODE WITH 2 PERSON ASSIST. SMALL BROWN BOWEL MOVEMENT NOTED. PT HAS ADDITIONAL LARGE SOFT BROWN BOWEL MOVEMENT IN COMODE. ROMEO CARE DONE. ALLEVYN TO LEFT UPPER LEG SOILED, CHANGED AT THIS TIME. WOUND BENEATH REMAINS RAW AND RED WITH RED DRAINAGE. PT UP TO STAND WITH FWW FOR ROMEO CARE. 2 PERSON ASSIST WITH FWW BACK TO CHAIR. PT REPOSITIONS SELF IN CHAIR. LUNCH DELIVERED. PT DENIES ADDITIONAL REQUESTS OR COMPLAINTS. CALL LIGHT WITHIN REACH.
--- NOTE | 2021-07-16 13:34 | NUR ---
AFTERNOON ASSESSMENT AND MEDICAITON DUE. PT UP TO CHAIR, RESTING WITH EYES CLOSED. PT AWAKENS TO MOVEMENT IN THE ROOM. PT DENIES PAIN AND NAUSEA. PICC LINE DRESSING NOTED TO BE LOOSE AND FALLING OFF ARM. PICC LINE DRESSING CHANGED PER PROTOCOL. PT TOLERATED DRESSIN CHANGE WELL. LINE LEFT HEPARIN LOCKED AT THIS TIME. GARBLED SPEACH CONTINUES. PT ORIENTED TO ALL BUT DATE/TIME. PT ABLE TO STATE WHY HE IS AT THE HOSPITAL AND REPEAT BACK PLAN OF CARE. PT REMAINS ON MODEDRATLY THICK LIQUIDS, TOELRATING WELL. LUNG SOUNDS CLEAR. DEMINISHED IN BASES. OCCATIONAL PRODUCTIVE COUGH NOTED. PT TOELRATING 2L O2 BY NC WITH OXGYEN SATURATIONS ABOVE 92%. SPUTUM THICK AND PALE GREEN. EDEMA UNCHANGED. CLEAR YELLOW URINE NOTED IN CATHETER. SMALL ABRASION NOTED TO SCROTUM, OCCATIONALLY BLEEDING. DRESSING PRVIOUSLY CHANGED TO LEFT UPPER THIGH. OTHER DRESSINGS REMAIN C/D/I. PT REMAINS UP TO CHAIR. WATCHIGN TV. NO ADDITIONAL REQUESTS OR COMPLAINTS. CALL LIGHT FARZANA CHARLES.
--- NOTE | 2021-07-16 13:50 | NUR ---
[facility] AT [facility] TO DISCUSS [facility]IENT ELIGIBILITY.
--- NOTE | 2021-07-16 14:52 | NUR ---
PATIENT IN CHAIR WATCHING TV AT THIS TIME. VITALS AND I&O'S CHARTED. CALL LIGHT IN REACH. NO FURTHER NEEDS AT THIS TIME.
--- NOTE | 2021-07-16 15:15 | NUR ---
THIS RN TO ROOM TO CHECK ON PT. PT REMAINS UP TO CHAIR. PT REPORTS HE FEELS "REALLY BAD" ABOUT TURNING AWAY PHYSICAL THERAPY. PT EDUCATION DONE ABOUT IMPORTANCE OF WORKING WITH PHYSICAL THERAPY. PT VERBALIZES UNDERSTANDING. PT DENIES PAIN AND NAUSEA AT THIS TIME. NO ADDITIONAL REQUESTS OR COMLAINTS. CALL LIGHT WITHIN REACH.
--- NOTE | 2021-07-16 16:10 | NUR ---
PT HERE FOR ENCEPHALOPATHY. PT UP TO CHAIR THIS SHIFT AND BEDSIDE COMODE WITH 2 PERSON ASSIST, FWW PIVOT. PT ABLE TO STAND FOR ROMEO CARE. PT TOLRATING EGULAR PURREED DIET WITH EXCELLENT APPITITE. LIQUIDS REMAIN MODERATLY THICK. NO SWALLOWING ISSUES NOTED THIS SHIFT. PT REMAINS ON 2L O2 BY NC TO MAINTAIN OXYGEN SATURATIONS ABOVE 92%. SOFT BOWEL MOVEMENT WHILE UP TO COMOD THIS SHIFT. PICC LINE REMAINS WNL, BRISK BLOOD RETURN FROM ALL LUMENS. PICC LINE DRESSING CHANGE DONE THIS HSIFT. MULTIPLE DICUBITUS SKIN ULCERS CONTINUE, UNCHANGED, ALLEVYNS IN PLACE. SMALL ABRASION TO SCROTUM. WATKINS CATHETER REMAINS IN PLACE, QUANTITY SUFICIENT. PT USES CALL LIGHT FREQUENTLY AND MAKES NEEDS KNOWN.
--- NOTE | 2021-07-16 16:40 | NUR ---
PT CALL LIGHT ON. PT REQUESTS ASSISTANCE REPOSITIONING SELF IN CHAIR. FEET DROPPED. PT REPOSITIONS SELF WITH NO ASSISTANCE OTHER THAN CHAIR MANAGEMENT. PT DENIES ADDITIONAL REQUESTS OR COMPLAINTS. CALL LIGHT WITHIN REACH.
--- NOTE | 2021-07-16 17:15 | NUR ---
THIS RN TO ROOM TO CHECK ON PT. PT REMAINS UP TO CHAIR EATING DINNER. PT DENIES PAIN AND NAUSEA. MEDICATIONS GIVEN. PT DENIES ADDITIONAL REQUESTS OR COMPLAINTS. CALL LIGHT WITHIN REACH.
--- NOTE | 2021-07-16 18:10 | NUR ---
PATIENT HAD XL INCONT. BM. ROMEO CARE DONE. PATIENT TRANSFERED TO BED, HEAVY 2PA PIVOT TRANSFER. CATH CARE DONE. VITALS AND I&O'S CHARTED. CALL LIGHT IN REACH. NO FURTHER NEEDS AT THIS TIME.
--- NOTE | 2021-07-16 18:35 | NUR ---
THIS RN TO ROOM TO CHECK ON PT. PT RESTING IN BED AFTER LARGE STOOL. PT REPORTS HE WAS ABLE TO STAND TO BE CLEANED AND TRANSFER BACK TO BED WITH 3 PERSON ASSIST PIVOT TRANSFER. PT DENIES PAIN AND NAUSEA AT THIS TIME. WARM BLANKETS PROVIDED NO ADDITIONAL REQUESTS OR COMPLAINTS. CALL LIGHT WITHIN REACH. BEDRAILS UP.
--- NOTE | 2021-07-16 19:05 | NUR ---
BEDSIDE REPORT RECEIVED FROM OFFGOING RN, VELMA. PT RESTING IN BED. PT STATES HIS STOMACH IS A LITTLE UPSET. REQUESTS BATH BASIN VS EMESIS BAG. DENIES FURTHER NEEDS AT THIS TIME. CALL JOSÉ MIGUEL CHARLES.
--- NOTE | 2021-07-16 19:55 | NUR ---
PT REQUESTED HELP WITH HOB LOWERING, NO FURTHER NEEDS
--- NOTE | 2021-07-16 20:30 | NUR ---
PT UTILIZES CALL LIGHT, WANTS TO KNOW HOW HE CAN GET OUT OF HERE. STATES THAT HE WOULD LIKE TO HAVE A CIGARETTE. REPORTS THAT HE HAD A DREAM EARLIER ABOUT EVERYONE SMOKING. PRITIO ENTERED FOR NICOTINE PATCH.
--- NOTE | 2021-07-16 21:07 | NUR ---
PT ASSESSMENT COMPLETE. PT DENIES PAIN, NAUSEA, OR SOB. LUNG SOUNDS CLEAR IN BILATERAL UPPER LOBES DIMINISHED IN BILATERAL BASES. PT WITH PRODUCTIVE COUGH NOTED DURING ASSESSMENT. ABD OBESE, FIRM. PT DENIES ABD TENDERNESS. WATKINS CATH DRAINING CLEAR YELLOW URINE. CATH CARE PERFORMED. SCROTAL EDEMA NOTED. GROIN FOLDS CLEANED, DESENEX POWDER APPLIED. PICC LINE TO MIGUEL. FLLUSHED WITH 10 ML NS AND HEPLOCKED. GOOD BLOOD RETURN NOTED. WNL. PT DENIES FURTHER NEEDS AT THIS TIME. CALL LIGHT IN REACH.
--- NOTE | 2021-07-16 22:14 | NUR ---
CALL LIGHT ON. pt REQUESTED HIS LIGHTS ON. SHOWED HIM HOW TO CONTROL HIS LIGHTS WITH HIS REMOTE. NO FURTHER REQUESTS AT THIS TIME. CALL LIGHT IN HAND.
--- NOTE | 2021-07-16 22:30 | NUR ---
IN TO 2-3PA FWW PIVOT TO THE BSC, BM, PT BACK TO BED, BOOSTED, THICKENED WATER REFRESHED FOR PT, NO FURTHER NEEDS AT THIS TIME
--- NOTE | 2021-07-16 23:35 | NUR ---
IN TO BOOST PT IN BED
--- NOTE | 2021-07-17 | NUR ---
PT PROVIDED WITH PUDDING
--- NOTE | 2021-07-17 00:50 | NUR ---
PT IS AWAKE AND CPOX SENSOR OFF, PT IS HUNGRY AND READY FOR BREAKFAST, PROVIDED APPLESUASE AND PUDDING
--- NOTE | 2021-07-17 01:16 | NUR ---
PT UTILIZES CALLLIGHT, REQUESTS EXTRA BLANKET. PROVIDED. THERMOSTAT INCREASED. PT DENIES FURTHER NEEDS. LIGHTS TURNED OUT. CALL LIGHT IN REACH.
--- NOTE | 2021-07-17 02:35 | NUR ---
PT UTILIZES CALL LIGHT, ASKS FOR HELP. CANDY ATTENDANT TO ROOM PT ASHEN IN COLOR, ASKING FOR HIS RIFLE. PT STATES IS IS IN [place]. PT WITH AUDIBLE GURGLING. SA02 89% ON 2 LPM. LUNG SOUNDS WITH RHONCI THROUGHOUT. RT NOTIFIED, CPAP THERAPY INITIATED PER RT. SA02 INCREASED TO 92-96% ON CPAP. PT STATES I DON'T WANT TO WEAR THIS. EDUCATION PROVIDED. PT AGREES TO TRY TO WEAR MASK. NOTIFIED. NO NEW ORDERS RECEIVED.
--- NOTE | 2021-07-17 03:15 | NUR ---
CPAP ALARMING. PT USES CALL LIGHT. DIRECTOR OUTPATIENT SERVICES TO ROOM. PT STATES THAT THE MASK CAME OFF OF HIS FACE. DIRECTOR OUTPATIENT SERVICES ATTEMPTS TO REPLACE MASK. PT STATES THAT HE WILL NO LONGER WEAR THE MASK. HE STATES THAT STAFF ARE EXPERIMENTING ON HIM AND HE WON'T HAVE IT ANYMORE. EDUCATION PROVIDED REGARDING PT'S BREATHING DIFFUCULIES. PT STATES, "I WAS FINE". PT STATES THAT HE'S GOING TO GET UP AND LEAVE. HE STATES STAFF ARE JUST DOING THINGS TO HIM TO IMPRESS THE BOSSES. EDCUATION PROVIDED. CONTINUE TO REINFORCE. NASAL CANNULA REPLACED, O2 @ 2 LPM. SA02 96%.
--- NOTE | 2021-07-17 04:52 | NUR ---
PT ROUNDING. SA02 87% ON 2LPM. O2 INCREASED TO 3 LPM, SA02 91%. PT REQUESTING CRACKERS. EDCUATION PROVIDED REGARDING DIET. PT STATES UNDERSTANDING.
--- NOTE | 2021-07-17 05:28 | NUR ---
MINERALOGY TEACHER TO ROOM TO OBTAIN VS. SAO2 92 ON 3LPM. RR 20, ABDOMINAL MUSCLE USE NOTED. PT DROWSY, FALLS ASLEEP WHILE MINERALOGY TEACHER AT BEDSIDE, WAKES EASILY. WATKINS CATH EMPTIED, DARK YELLOW URINE PRESENT. PT CONTINUES TO REQUEST CRACKERS. DIET EDUCATION REINFORCED. CALL LIGHT IN PT REACH.
--- NOTE | 2021-07-17 06:39 | NUR ---
PT TURNED AND REPOSITIONED IN BED. NEW ALLEVY PLACED TO L POSTERIOR THIGH. BARRIER CREAM APPLIED TO BUTTOCKS AND SMALL OPEN AREA ON SCROTUM. PT DOES NOT TOLERATE TURNING WELL. DENIES FURTHER NEEDS AT THIS TIME. CALL LIGHT IN REACH.
--- NOTE | 2021-07-17 07:19 | NUR ---
REPORT RECEIVED FROM MISA BANEGAS. PT RESTING IN BED. PT REPORTS HE IS ANCITIPCATING BREAKFAST. PT DENIES PAIN AND NAUSEA. NO ADDITIONAL REQUESTS OR COMPLAINTS. CALL LIGHT WITHIN REACH. BED RAILS UP. PT REMAINS ON 3L O2 BY KS WITH OXYGEN SATURATION OF 93%.
--- NOTE | 2021-07-17 08:04 | NUR ---
MORNING ASSESSMENT AND MEDICATION DUE. PT RESTING IN BED. PT DENIES PAIN AND NAUSEA. 2 PERSON ASSIST WITH FWW UP TO STAND. ROMEO CARE DONE, SMALL BROWN STOOL SMEAR NOTED. PT TAKES SHUFFELING STEPS OVER TO CHAIR. PICC LINE ASSESSED, BRISK BLOOD RETURN NOTED FROM ALL LUMENS. ALL LUMENS FLUSHED AND HEPARIN LOCKED, CLAVES CHANGED PER PROTOCOL. DRESSING COMPLETELY LOOSE AND PICC LINE NOTED TO BE 4CM OUT OF INSERTION SITE. PICC LINE DRESSING CHANGE DONE PER PROTOCOL. WATCH MECHANIC UPDATED ON CHANGE OF PICC LINE. PICC LINE LEFT IN PLACE AT THIS TIME. NEW DRESSING IN PLACE. MESSAGE SENT TO MD. PT ALERT AND ORIENTED TO ALL BUT DATE AND TIME. PT DOES NOT RECALL EVENTS OF LAST NIGHT. PT INQUIRES ABOUT WHY HE HAS SCROTAL EDEMA. PT EDUCATION DONE. LUGN SOUNDS CLEAR. LUNG SOUNDS NOW CLEAR. OXGYEN SATURATION 99 % ON 3L O2 BY NC. PT WEANED BACK TO 2L O2 BY NC AND IS MAINTAINING OXYGEN SATRUTAIONS ABOVE 92%. COUGH CONTINUES, NO SPUTUM SEEN AT THIS TIME. HEART TONES REGULAR. SCROTAL EDMA WORSENING. BLE EDEMA UNCHANGED, LEGS REMAIN TIGHT. NEW STAT LOCK PLACED FOR WATKINS CATHETER LINE APPEARS TIGHT AND PULLING ON PENIS. ORMEO AREA RED, MICONAZOLE POWDER APPLIED. CONCENTRATED YELLOW URINE NOTED IN CATHETER BAG. WOUNDS REMAIN UNCHANGED, RED, EXCORIATED. ALLEVYNS CLEAN DRY AND INTACT AND LEFT IN PLACE. PT REMAINS UP TO CHAIR. MEDICAITONS GIVEN. NO ADDITIONAL REQUESTS OR COMPLAINTS. CALL LIGHT WITHIN REACH.
--- NOTE | 2021-07-17 08:13 | NUR ---
Called and [facility] with the [facility] requesting if pt is service connected, does he has a [facility] in [place], and if they will pay for a SNF.
--- NOTE | 2021-07-17 09:30 | NUR ---
THIS RN TO ROOM TO CHECK ON PT. PT FINISHED WITH BREAKFAST. PT REPORTS NAUSEA AND IS STICKING HIS FINGERS DOWN HIS THROAT TO ENDUSE EMESIS. PT VOMITS ~150ML OF WHITE MILK LIKE FLUID. PT ADVISED THAT THIS PRACTICE IS NOT RECCOMENDED. PT STATES "WELL I JUST HAD TO, I WANTED TO GET IT OUT." PT REPORTS HE HAS DIFFICULTY WITH MILK AT HOME SOMETIMES. DIETARY CALLED AND MILK REMOVED FROM DIET. PT PICKING AT PICC LINE DRESSING. PT EDUCATION DONE AND PT ADVISED NOT TO TOUCH HIS PICC LINE. PT ADVISED THAT HE NEEDS A SHOWER HE NOW HAS EMESIS, AND STOOL OVER BODY. PT DECLINES SHOUTING "I'M NEVER DOING THAT! YOU CAN'T MAKES ME GET UP OR DO ANYTHING AND I'M NOT DOING IT!" PT STATES "YOU JUST NEED TO CLEAN ME UP WHILE I SIT HERE." PTS CHEST CLEANED OF EMESIS. NEW GOWN APPLIED, NEW BLANKETS PROVIDED. CALL LIGHT WITHIN REACH. NO ADDITIONAL NEEDS AT THIS TIME.
--- NOTE | 2021-07-17 09:39 | NUR ---
PATIENT UP TO BSC AND BACK TO CHAIR EARLIER, 2PA PIVOT TRANSFER, FWW. ROMEO CARE, CATH CARE DONE. PATIENT NOW IN CHAIR WATCHING TV. VITALS AND I&O'S CHARTED. CALL LIGHT IN REACH. NO FURTHER NEEDS AT THIS TIME.
--- NOTE | 2021-07-17 09:50 | NUR ---
Received a call from Terese at the [facility]. Pt is 20% service connected which precludes the [place] from paying for a SNF. Pt [place] Dr. is Dr. Shay and pt is scheduled to see Dr. Shay on July 24, at 2 pm. Spoke with pt's nurse and pt was able to pivot transfer to his wc this AM. I believe this is pts baseline. Will fu with PT.
--- NOTE | 2021-07-17 10:40 | NUR ---
PT CALL LIGHT ON. PT AGREES TO SHOWER. STATING "I'M READY TO BE DONE WITH THIS STUFF." OIL FURNACE INSTALLER TEAM AND PHYSICAL THERAPY TO BEDSIDE. PT ENCORUAGED TO STAND UP WITH FWW WITH STAND BY ASSIST. PT STARTS TO STAND AND STATES "I WON'T STAND UP UNLESS YOU HELP ME." GATE BELT ASSISTANCE PROVIDED. PT STANDS WITH GATE BELT ASSISTANCE AND TRANSFERES TO SHOWER CHAIR WITH 2 PERSON ASSIST. PT WHEELED TO SHOWER. ENCOURAGED TO START WASHING HIMSELF. PT WASHES ABDOMEN AND STATES "THAT'S MUCH I CAN" HOWEVER PT IS SEEN TO COMB HAIR AND PICK AT LINES AND REACH FOR OBJECTS INDEPENDANTLY. PT ENCORUAGED TO CONTINUE WITH SELF CARES. PT REFUSES TO DO ANY ADDITIONAL CARES AND YELLS "THAT'S ALL I CAN DO! GET ME OUT OF THE SHOWER." ADDITIONAL WASHING CARE DONE BY OIL FURNACE INSTALLER (ANTONIETA) INCLUING CATHETER CARE, ROMEO CARE, SHAMPOO, AND SKIN CARE. PT WHEELED BACK TO CHAIR. PT ENCORUAGED TO STAND ON HIS OWN, STATES HE IS UNABLE. 2 PERSON ASSIST WITH FWW BACK TO CHAIR. PT HOLLAND HIS OWN HAIR. PT REMAINS UP TO CHAIR, WORKING WITH PHYSICAL THERAPY. NO ADDITIONAL NEEDS AT THIS TIME.
--- NOTE | 2021-07-17 11:26 | NUR ---
THIS RN TO ROOM TO CHECK ON PT. PT RESTING IN CHAIR WITH EYES CLOSED. RESPIRATIONS EVEN AND UNLABORED. CALL LIGHT WITHIN REACH. PT ALLOWED TO REST.
--- NOTE | 2021-07-17 11:52 | NUR ---
THIS RN TO ROOM TO CHECK ON PT. PT CONTINUES RESTING IN CHAIR WITH EYES CLOSED. RESPIRATIONS EVEN AND UNLABORED. CALL LIGHT WITHIN REACH. NO ADDITIONAL NEEDS AT THIS TIME. PT ALLOWED TO REST.
--- NOTE | 2021-07-17 12:53 | NUR ---
ABX DUE. THIS RN TO ROOM. CONCEPCIÓN GARCIA TALKING WITH INSURANCE COMPANY ON THE PHONE FOR PT. HAS SPENT 56 MINUTES IN CONVERSATION TO SET UP PTS INSURANCE. PT COMPLAINTING ABOUT TEMPERATURE AND SERVICES AT THE HOSPITAL. PT REQUEST WARM BLANKETS, PROVIDED. PT DENIES PAIN AND NAUSEA. ICE WATER REFILLED, NO ADDITIONAL NEEDS AT THIS TIME. CALL LIGHT WITHIN REACH.
--- NOTE | 2021-07-17 13:08 | NUR ---
Notified by aid, she spent well over an hour assisting this pt to speak with medicare. They were notified open enrollment is over, to qualify for Part B, pt needs to get Part A medicaid to cover his premiums. Pt needs to qualify for Beneficiary program through medicaid. They were given the phone number [facility] [phone] number which is Shea Hernandez at [employer]. I had spoken with her this am and was told pt needed to have Medicare to qualify for any of their programs. I will call her again this afternoon. They were also told by medicare, when this pts gets an address he needs to contact [employer] [phone] for a new card.
--- NOTE | 2021-07-17 13:16 | NUR ---
PATIENT IN CHAIR RESTING WITH EYES CLOSED. VITALS AND I&O'S CHARTED. CALL LIGHT IN REACH. NO FURTHER NEEDS AT THIS TIME.
--- NOTE | 2021-07-17 13:20 | NUR ---
REPORT GIVEN TO MISA MCDUFFIE, WHO IS ASSUMING CARE OF PT.
--- NOTE | 2021-07-17 15:18 | NUR ---
Repositioned in bed from recliner. Unsteady gait. Does not follow direction. Repositioned in bed, turned to left side and pillows used for support. Patient becomes agitated and requests multiple times to remove pillows, educated on need to reposition patient due to skin issues. Continues to refuse repositioning off buttocks, pillows removed.
--- NOTE | 2021-07-17 17:19 | NUR ---
PATIENT SITTING UP IN BED WATCHING TV. VITALS AND I&O'S CHARTED. CALL LIGHT IN REACH. NO FURTHER NEEDS AT THIS TIME.
--- NOTE | 2021-07-17 19:23 | NUR ---
RECEIEVED REPORT FROM DAY SHIFT RN. PATIENT IS RESTING IN BED WATCHING TV. NO NEEDS NOTED. CALL LIGHT IN REACH.
--- NOTE | 2021-07-17 20:55 | NUR ---
PATIENT ASSESMENT COMPLETED. PICC LINE HAS BLOOD RETURN AND IS HEP LOCKED PER ORDER. PATIENT REPOSITIONED IN BED. SCHEDULED MEDICATIONS GIVEN PER ORDER. WATKINS EMPTIED AND FOELY CARE COMPLETED. VITALS TAKEN AND RECORDED. INTAKE AND OUTPUT RECORDED. PATIENT IS ON 2L VIA NC. PATIENT DENIES ANY SOB. PATIENT DENIES ANY FURTHER NEEDS. CALL LIGHT IN REACH.
--- NOTE | 2021-07-17 22:07 | NUR ---
CALL LIGHT ON. pt REQUESTED TO USE THE BSC. HEAVY 2PA, FWW TO BSC. SOFT BROWN BM. BACK TO BED, 2PA FWW. pt SITUATED IN BED. CALL LIGHT IN HAND.
--- NOTE | 2021-07-17 22:15 | NUR ---
PATIENT ASSISTED TO THE RESTRROOM A 2PA W/FWW PIVOT XFER TO THE BS. PATIENT HAD LARGE LOOSE BM. PATIEN IS BACK IN BED RESTING. PATIENT TOLERATED ACTIVITY WELL. NO FURTHER NEEDS NOTED. CALL LIGHT IN REACH.
--- NOTE | 2021-07-17 23:31 | NUR ---
PATIENT PROVIDED WARM BLANKET PRE REQUEST. PATIENT DENIES ANY FURTHER NEEDS. CALL LIGHT IN REACH.
--- NOTE | 2021-07-18 00:45 | NUR ---
PATIENT IS RESTING IN BED WITH EYES CLOSED RR 17. CALL LIGHT IN REACH.
--- NOTE | 2021-07-18 01:26 | NUR ---
PATIENT ASSISTED WITH COVERS. PATIENT DENIES ANY FURTHER NEEDS. CALL LIGHT IN REACH.
--- NOTE | 2021-07-18 03:18 | NUR ---
PATIENT IS RESTING IN BED WATCHING TV. PATIENT DENIES ANY NEEDS. CALL LIGHT IN REACH.
--- NOTE | 2021-07-18 06:31 | NUR ---
PATIENT REPOSITIIONED IN BED. VITALS TAKEN AND RECORDED. WATKINS CARE COMPLETED AND WATKINS EMPTIED. PATIENTS PICC ON RUE DRESSING CHANGED IT WAS COMING OFF. PICC HAS BLOOD RETURN IN ALL 3 LUMENS. PICC IS SL PER ORDER. PATIENT REMAINS ON 2L VIA NC. PATIENT DENIES ANY NEEDS. CALL LIGHT IN REACH. FRESH ICE WATER PROVIDED.
--- NOTE | 2021-07-18 07:10 | NUR ---
Report received from Geovany BYNUM. Pt resting in bed with eyes closed, 2L NC O2 in place, RR even and unlabored. Lewis catheter in place, WNL. No needs identified at this time, call light in reach. Will continue plan of care.
--- NOTE | 2021-07-18 08:05 | NUR ---
Assessment complete. Pt resting in bed, on 2L NC o2, A+O. Pt has generalized and severe scrotal edema, elevated with pillowcase and desenex applied. Feet elevated. Lungs diminished, HRR. Pt garbled speech, states baseline. PICC line hep locked and flushed, brisk blood return noted.
--- NOTE | 2021-07-18 08:12 | NUR ---
Attempted to contact SALO at [facility] to assist this pt with medicare.
--- NOTE | 2021-07-18 08:45 | NUR ---
henrik was laying in bed resting. call light within reach no further tasks at this time
--- NOTE | 2021-07-18 08:45 | NUR ---
Scheduled medications administered, pt takes pills one at a time, swallows well with thickened water. Nicotine patch applied.
--- NOTE | 2021-07-18 09:42 | NUR ---
ANSWERED PT CALL LIGHT, LATISHA MEDEIROS, CATHETER CARE DONE, PT CENTERED IN BED, PT GOWN CHANGED, CALL LIGHT WITHIN REACH, NO FURTHER ASSISTANCE NEEDED AT THIS TIME.
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
--- NOTE | 2021-07-18 11:29 | NUR ---
Called and left a message with [facility] asking if pt can return. Also asked if Jared recieved and eviction notice as he states he was not notified and has paid his rent in full. I was not able to reach anyone today or yesterday at [facility]. I then called [employer] and spoke with Gerard. Updated pt is elderly, disabled in a and I am concerned he is being evicted without a proper process. He states he will check into this.
--- NOTE | 2021-07-18 12:13 | NUR ---
PT UP TO CHAIR, 2PA FWW, PT ABLE TO SIT UP ON SIDE OF BED WITH MOD ASSISTANCE. PT UP IN CHAIR FOR MEALS. CALL LIGHT WITHIN REACH, NO FURTER ASSITACNE NEEDED AT THIS TIME.
--- NOTE | 2021-07-18 12:37 | NUR ---
BOTH NARES SWABBED FOR COVID-19 WITHOUT COMPLICAITON. SAMPLE TAKEN TO LAB.
--- NOTE | 2021-07-18 12:45 | NUR ---
PT ASLEEP, DID NOT DISTURB. WILL CHECK AGAIN
--- NOTE | 2021-07-18 13:02 | NUR ---
ANSWERED PT CALL LIGHT, PT VOMMITED X1 FROM COUGHING. PT FACE WASHED AND CHEST CLEANED, NEW BLANKET PT CALL LIGHT WITHIN REACH NO FURTHER ASSISTANCE NEEDED AT THIS TIME.
--- NOTE | 2021-07-18 13:15 | NUR ---
Pt now adamantly refuses physical therapy and raises voice when discussing it with this RN and PT. Pt states that if "you don't raise my feet up, I'm calling a die try out worker". Extensive counseling, education and reassurance provided to patient about plan of care and making progress for a safe DC. He states agreement. Allowed to rest at this time. Pt made plan to work with PT "tomorrow".
--- NOTE | 2021-07-18 13:41 | NUR ---
PO ABX provided, pharmacy brought dose to medsurg floor. Pt states wanting to leave, discussed plan of care for safe discharge, pt is agreeable with this plan but c/o frustration. Pt assisted to use BSC with 2PA for BM. Pt back to chair. PT Brittney in room to work with pt.
--- NOTE | 2021-07-18 15:10 | NUR ---
Call light answered, pt requests to be repositioned in chair, assisted and encouraged self repositioning as well. Pt states would like a snack, thickened clear ensure provided as well as applesauce. Pt states no further needs.
--- NOTE | 2021-07-18 16:55 | NUR ---
Call light answered. pt found with O2 NC around chin. O2 replaced, SpO2 97%. no other needs. call light in reach.
--- NOTE | 2021-07-18 17:19 | NUR ---
Scheduled medications administered, pt repositioned in chair. Pt wearing O2, coughs frequently, noted to have emesis in basin at bedside. Pt states no needs at this time. Encouraged to call with future nausea or coughing episodes
--- NOTE | 2021-07-18 18:07 | NUR ---
Call light answered, pt states "got sick", emesis noted in basin, cleaned. IV zofran administered. Vitals taken, pt noted to have temperature of 99.4. I.S. given and patient demonstrates use. Temperature reassessed shortly after to be 98.0- will cont to monitor. Pt 88% on room air, encouraged to keep NC in nose, currently at 3L, 93%. Gown and linens changed.
--- NOTE | 2021-07-18 18:46 | NUR ---
Pt up to chair, on 2-4L NC to maintain spo2 >90%. Temp 99.4, I.S. given and temperature 98.0 upon reassessment. Multiple bouts of emesis today. Pt transfers with 2PA with FWW. Uses BSC for multiple BM.
--- NOTE | 2021-07-18 18:54 | NUR ---
Dr Tobias notified per parameters for slightly low UOP, needed 715 per shift and had 600ml. Pt also had multiple emesis and is edematous. Will continue plan of care.
--- NOTE | 2021-07-18 20:09 | NUR ---
pt back to bed from chairn, giovanni kifeted and 3 people. earlier at change of shift, coop. on chronic 3LNC, lungs dim at bases, asiya abd, edematous scrotum/penile area, f/c patent. generalzied edema to hands and 3+ brawning edema to LE, bruising over arms and chest presetn. RA HL patent. hob elevated. pt moist cough after eating, on thickened liquids. Bed alarm on.
--- NOTE | 2021-07-18 22:24 | NUR ---
continues to call often for pudin. hob elevated, on 3L NC chronic. no c/o pain. f/c patent. legs elevated. watching tv
--- NOTE | 2021-07-18 22:53 | NUR ---
anxious, medicated with seroquel 12.5mg, c/o upset stomach, has had about 10 pudin snacks since begining of this shift. instructed on let him stomach rest and will reassess in 2 hours as he wanted mroe snacks instead of zofran. semi receptive to instructions, continue to observe. call light and fluids at hands reach.
--- NOTE | 2021-07-18 23:37 | NUR ---
PT HOB ELEVATED, C/O LEG PAIN, LEGS WERE REPOSITIONED EARLIER. ELEVATED IN BED. NO PAIN MEDS, PT WAS MEDICATED EARLIER WITH SEROQUEL. REPOSITIONED TO L SIDE USING SAGAR AND PT HELPING BY GRABBING L RAILS WITH R HAND. 'OH, THATS NOT WHAT I NEEDE BUT THANK YOU". "CAN I HAVE MORE FOOD", PT INSTRUCTED TO GIVE ABD A REST HE WAS C/O UPSET STOMACH EARLIER AND C/O INCRESAED BURPING. FLUIDS AT BEDSIDE. INSTRUCTED TO REACH OVER AND GRAB WATER JUG IT IS WITHING EASY HAND REACH. CONT TO ENCOURAGE SELF CARE. PT INSTRUCTED ON THAT THIS RN WILL CONTINUE TO COME AND CHECK ON HIM HOURLY
--- NOTE | 2021-07-18 23:51 | NUR ---
c/o dry heaviong and upset stomach, medicated with maalox. 'i want a snack'. instructed again to give his abd a rest and once he feels better and Maalax does it job we may try w small bites again. stated understanding
--- NOTE | 2021-07-19 00:05 | NUR ---
PT RAFAELA, HAS CALLED BEEN DROPHAMMER OPERATOR LIGHT EVERY 30 SECONDS FOR THE PAST 10 MIN, WITH STAFF IN AND OUT OF ROOM, THIS HAS BEEN GOING ON FOR THE PAST HOUR. THIS CALL HE WANTED HIS SOCKS OFF, TV UP LOUD, WAS YELLING FOR SOMEONE TO COME SEE HIM. REPOSITIONED LEGS, STRAIGHTENED OUT THE SAGAR SHEET BELOW HIS LEGS, REPOSITIONED LEGS, OFFERED ANYOTHER SERVICES AT THIS TIME, DID REMIND HIM THAT HIS TV WAS VERY LOUD, AND NEEDED TO CLOSE DOOR. PT STATED HE UNDERSTOOD.
--- NOTE | 2021-07-19 00:10 | NUR ---
SCREAMING AND HOLLERING, I NEED HELP, "I LOST MY CALL LIGHT". PTS CALL LIGHT WAS LAYING IN BED ON HIS R SIDED, IN PLAIN SIGHT, PT WAS ABLE TO GRAB CALL LIGHT, PLACED ON ABD, TV CONTROL TOO AND ASKED IF HE COULD REACH HIS WATER, "OF COURSE" AND REACHED OVER TO BED. BEDSIDE TABLE AND WATER RIGHT ABOVE RAILS, PT ABLE TO GRAB WATER JUB WITHOUT EXTENDING HIS ARM. PT INSTRUCTED THAT RN WOULD COME AND SEE HIM AT 0100AM
--- NOTE | 2021-07-19 00:23 | NUR ---
PT CALLED, TOOK O2 OFF, REPOSITIONED, "i DID NOT TOOK IT OFF, IT FELL OFF", TUBING WAS ON BACK OF HEAD WHEN EARLIER IT WAS ON FRONT LIKE NORMAL. INSTRUCTED VERBALLY NOT TO TAKE IT OFF IT HELPS HIS LUNG AND HELPS HIM TO BREATHE BETTER. STATED UNDERSTANDING
--- NOTE | 2021-07-19 00:35 | NUR ---
PT CALLED AGAIN, ' I CANT CHANGE MY CHANNEL', UPON GOING TO HIS ROOM NOTED THAT THE TV SHOWS A SIGN SAYING, NO SIGNAL, FACILITY TV SIGNAL LOST AT THIS TIME, UNKNOWN REASON, PTINSTRUCTED TO WAIT UNTIL SIGNAL COMES BACK ON ITS OWN.
--- NOTE | 2021-07-19 01:12 | NUR ---
PT CALLED, ' I NEED YOU TO TURN MY TV ON, IM COLD, MY O2 CAME OFF'. PT INSTRUCTED TO TUNR TV ON AND OFF BY SELF, MARTA Carson HE DID, HE HAD THE TV REMOTE ON HIS HAND. BED COVERS AT HANDS REACH WHERE HE COULD COVER HIMSELF, PT TOOK O2 TUBING OFF HIMSELF, HOB ELEVATED TO COMOFRT. LUNGS WITH EXP WHEEZING AUSCULTATED AT THIST PAOLA, . O2 PLACED BACK ON AND OPSITE APPLIED TO UPPER CHEEKS TO KEEP IN PLACE. PT INSTRUCTED. CALL LIGHT AND FLUIDS AT HANDS REACH. PT ABLE TO REACH FOR ABOVE ITEMS, TV CONTROL AND BLANKETS WITHOUT STRETCHING ARMS. PT INSTRUCTED THAT RN WOULD COME BACK AND DO ROUNDS ON HIM AT 0200. PT CONTINUES TO USE CALL LIGHT FREQUENTLY EVERY FEW MINUTES, EVEN WHEN NEEDS ARE MET.
--- NOTE | 2021-07-19 02:25 | NUR ---
PIC LINE DRESSING CHANGED BY THIS STUDENT NURSE. HAND HYGEINE PERFORMED. STRERILE TECHNIQUE USED.
--- NOTE | 2021-07-19 02:36 | NUR ---
PT WAS INCONTINENT OF BM, CHANGED BY PALM GATHERER, DRESSING APPLIED LEFT INNER BACK THICH AREA, ALL OTHERS OPEN TO AIR, POWDER APPLIED. ALL PROCEDURES EXPLAINED, NOT VERY COOPERATIVE, REQUIRED MULTIPLE CUES. R PICC LINE DRESSING CHANGED IT CAME OPEN, NEW DRESSING DONE BY SN UNDER SUPERVISION. PT SEMI COOPERATIVE. PATENT, GOOD BLOOD RETURN. HOB ELEVATED. SCROTUM ELEVATED VERY SWOLLEN SCROTUM AND PENILE AREA, F/C PATENT, DRAINING DARK YELLOW URINE. REPOSITIONED WITH 3 PEOPLE, WATER AT BEDSIDE
--- NOTE | 2021-07-19 02:56 | NUR ---
PT CONTINUES TO CALL EVERY 30 SECONDS TO 1 MINUTES, PT ABLE TO DO MANY OF THOSE THINGS HE CALLS FOR LIKE REACHING OVER AND PULLING COVERS ON OR OFF, REACHING FOR WATER JUG, TURNING TV ON OR OFF, HE KEEPS PULLING O2 TUBING OFF AND PLACEING IT TO BACK OF HEAD. PT ABLE TO REPOSITION SELF. TV CONTROL, CALL LIHGT, FLUIDS AND BEDDING AT HANDS REACH. IRRITABLE, DEMANDING, BELLIGERENT AT TIMES, ARGUMENTATIVE. NOT RECEPTIVE TO INFORMATION, HAS NOT SLEPT THIS SHIFT, WAS MEDICATED WITH SEROQUEL 12.5MG EARLIER, NOT EFFECTIVE.
--- NOTE | 2021-07-19 03:15 | NUR ---
Dr Tobias notified of pts behavior, that seroquel was given and not effective, no new orders, to review in am.
--- NOTE | 2021-07-19 03:33 | NUR ---
pt called, saying, "It fell out, everything fell out", this Rn went to room and found pt had intentionally pulled R ar, PICC line out, tip intact. will try to restart another IV site. had pulled O2 off too, "I did not do it, I dont know how it happened", pt alert, argumentative, "I just dont want to pay for it, I dont have to pay for it If I dont have one", redirectable, irritable, "I did not meant to do it, ". O2 back on.
--- NOTE | 2021-07-19 03:43 | NUR ---
Unable to restart IV after several tries by Radha FISH BIN TENDER. procedure expolained to pt, cooperative.
--- NOTE | 2021-07-19 04:14 | NUR ---
Pt called again, "something fell". this Rn went to troom and HH call light have been thrown out towards couch. This nurse had looped twice around rails and placed on pts abd prior to exiting the room a few minutes prior. "I did not toss it, I do not know who did it". Call light looped again in rail opening to prevent it from falling off, placed iin pts R hand. TV control, fluids at R hands reach w/o even bending arm.
--- NOTE | 2021-07-19 06:37 | NUR ---
PT ON 2L NC AT THIS TIME, EXP WHEEZING AND DIM LUNG SOUNDS, TAKES O2 TUBING OFF SEVERAL TIMES THIS SHIFT, HOB ELEVATED TO COMOFRT. PT WAS VERY IRRITABLE, DEMANDING, ARGUMENTATIVE AND NOT FOLLOWING INSTRUCTIONS T/O THIS SHIFT. RECEIVED SEROQUEL 12.5MG PO, NOT EFFECTIVE. PT ALSO PULLED R PICC LINE OFF, SITE INTACT. REQUESTSED MANY SOFT SNACKS AND THEN C/O UPSET STOMACH, RECEIVED MAALAX , EFFECTIVE, TOLERATING LIQUIDS WELL. hAD BM, SKIN CARE DONE. MULTIPLE OPEN AREAS IN BUTTOCKS, BACK OF THIGH, DRESSING APPLIED, EDEMATOUS SCROTUM AND PENIS, DESENEX TO REDBREAST, APRIN AND ROMEO AREA. F/C NOT CHRONIC PATENT. PT IS A 3 PA/SAGAR. HAS CALLED EVERY 30 SECONDS TO A FEW MINUTES APART, THE MAJORITY OF THIS SHIFT, STARTED HOWLERING AND SCREAMING SEVERAL TIMES, REORIENTED, PRAISED FOR EFFORTS, UNABLE TO ASSESS DEGREE OF UNDERSTANDING SOMETIMES HE FOLLOWED AND REPEATED BACK INSTRUCTIONS AND SOMETIMES HE DID NOT. CURRENTLY RESTIN SINCE APPROX 0430, NO DISTRESS. ON 2LNC. LE EDEMA, ELEVATED. CALL LIGTH, TV REMOTE CONTROL AND FLUIDS WITHIN HANDS REACH. CONTIUE TO REINORCE SELF CARE PT SABOTAGES HIS OWN CARE. FALL AND ASPIRATION PRECAUTIONS INPLACE
--- NOTE | 2021-07-19 06:55 | NUR ---
dr austin notified of pt pulling PICC line out and unable to restart a new IV site. "Ok, dont worry, he does not get anything IV"
--- NOTE | 2021-07-19 07:00 | NUR ---
PT REATING, O2 2LNC IN PLACE, EYES CLOSED, NO RESP DISTRESS. CALL LIGHT, TV REMOTE AND FLUIDS WITHIN HANDS REACH.
--- NOTE | 2021-07-19 09:06 | NUR ---
PT PULLED SELF UP TO HOB WITH MINIMAL ASSISTANCE, PT SITTING UP IN BED FOR MEAL. CALL LIGHT WITHIN REACH NO FURTHER ASSITANCE NEEDED AT THIS TIME.
--- NOTE | 2021-07-19 10:00 | NUR ---
Spoke with Donavon. Let him know I am working with [employer] for assessment for terminal [place] medicaid for placement. We discussed a AFC and he states he would go. I was later notified by Anais from insurance, she attempted to get pt on OHP and he declined. Stating he just wanted to return to [facility].
--- NOTE | 2021-07-19 13:00 | NUR ---
Received call from Diandra at [facility] and she will complete phone eval. Richie, dean of students, to room and will call Diandra at [facility].
--- NOTE | 2021-07-19 16:09 | NUR ---
Call from Anais, she will visit pt in the morning and I will go with her and offer pt medicaid to pay for his medicare part B. Per [employer] pt qualifies for this.
--- NOTE | 2021-07-19 17:53 | NUR ---
patient had less UOP these past few hours, no change in what he has had in the past. he is sitting up with HOB 48 degrees. He continues to wants snacks/food constantly, have had to attempt to put him on a limit/schedule of food/snacks.
--- NOTE | 2021-07-19 19:55 | NUR ---
pt has called three times, "my tube from my nose fell off", repositioned and "I dont know how it happened", pt instructed to keep O2 in place. call light at hands reach. RT in room for shyla thomas
--- NOTE | 2021-07-19 20:21 | NUR ---
PT CALL LIGHT ON MULTIPLE TIME, PT ASKS FOR SOMETHING TO EAT, C/O OF NOT GETTING THE ANSWERS HE WANTS, TRIED TO REASSUSE PT THAT RN WILL IN TO SEE PT SOON, PT STATES HE WILL LEAVE IF THINGS DONT CHANGE, THIS QUEEN PRODUCER WILL TALK TO THE RN FOR AN UPDATE BEFORE RETURNING TO THE PT, PER PTs REQUEST
--- NOTE | 2021-07-19 20:46 | NUR ---
Pt on 2LNC, lungs dim t/o. moist prod cough thick and clear/white colored. coop with assessment, keeps taking O2 tubing off, received a neb tx earlier. abd large oj, edema to hands bruising healing. LE thickened skin, edematous open areas back of legs and buttocks helaing. f/c not chronic draining small amount dark yellow urine. edematous scrotum and penis, elevated with towels. Pt in sitting position in bed, watching tv. Received trazadone per insomnia and serowuel for anxiety. Continues to call every 1-2 minutes, pt call light - tv control, kleenex, fluisd, call light at easy hands reach. Pt not receptive to instructions.
--- NOTE | 2021-07-19 21:18 | NUR ---
DR CUNNINGHAM NOTIFIED OF PTS BEHAVIOR, AND OF NO IV . NEW ORDERS OBTAINED TO REPEAT TRAZADONE 1X PER INSOMNIA IF FIRST DOSE NOT EFFECTIVE. AND ZOFRAN SL Q6H PRN N/V.
--- NOTE | 2021-07-19 22:09 | NUR ---
ON 2LNC, HOB ELEVATED, LEGS ELEVATED, F/C PATNE, NO IV SITE, CALMER BUT CONTINUES TO CALL EVERY 20-40 SECONDS, MULTIPLE REQUESTS ABOUT CABLE/TC OFF, PT INSTRUCTED THATS OUTSIDE NURSING SCOPE TV IS OUT ALL OVER THE HOSPITAL, REMINDED MULTIPLE TIMES, NOT RECEPTIVE, SEROQUEL NOT EFFECTIVE AT THIS TIME, WILL CONTINUE TO REASSESS
--- NOTE | 2021-07-19 22:17 | NUR ---
PT CONTINUES TO PRESS CALL BUTTON EVERY 30 SEC TO MINUTE. HE WILL NOT FOLLOW DIRECTIONS TO CALL APPROPRIATELY. HE STATES HE NEEDS HIS BED MOVED, TV WILL NOT WORK, OR ASKING FOR OTHER TYPES OF ASSISTANCE. PT HAS BEEN TOLD MULTIPLE TIMES BY ALL NURSING STAFF ON THE FLOOR THAT WE CANNOT STAY WITH HIM IN THE ROOM THERE ARE OTHER PATIENTS TO CARE FOR. PT CONTINUES TO BE NONCOMPLIANT WITH NURSING STAFFS DIRECTIONS.
--- NOTE | 2021-07-19 22:45 | NUR ---
PT AWAKE, SECOND DOSE OF TRAZADONE GIVEN, WATCHING TV, HOB ELEVATED, O2 2L TUBE PLACED BACK ON HE HAD TURNED OFF. HAD TOSSED HH CALL LIGHT ACROSS TABLE TOWARD CHAIR AND KLEENEX BOX ACROSS ROOM TOWARDS COUCH. PLACED BACK INTO TABLE AND EASY HANDS REACH. SEROQUEL NOT EFFECTIVE. BUT NOT ANXIOUS, USING CALL LIGTH EVERY 20-40 SECONDS EVEN WHEN THIS RN IS IN ROOM, NOT RECEPTIVE TO INSTRUCTIONS. REPOSITIONED USING LUIS KEITH, F/C PATENT. BED COVERS REMOVED AND PLACED BACK ON SEVERAL TIMES WHILE THIS RN WAS INROOM. CURRENTLY PLACED ON L SIDE WHERE PT CAN EASILY REACH OVER AND COVER SELF. TOLERATING THICKENED LIQUIDS. EDEMATOUS SCROTUM AND PENIS, F/C PATENT DRAINING SMALL AMOUNTS OF DARK YELLOW URINE. O2 BACK IN PLACE 2LNC. CALL LIGHT, TV CONTROL-TV SERVICE BACK ON- AT HANDS REACH. FLUIDS, KLEENEX AT R SIDE AND COVERS ON LEFT SIDE WITHING EASY HAND REACH.
--- NOTE | 2021-07-19 23:14 | NUR ---
pt O2 2LNC in place, hob elevted to his comofrt, drowsy but still awake, watching tv, calmer. call light and fluids at hands reach
--- NOTE | 2021-07-20 00:30 | NUR ---
pt hob elevated , had taken o2 off, 'it fell', repositioned, drowsy, watching tv, call light at hands reach
--- NOTE | 2021-07-20 00:35 | NUR ---
pt c/o being soile, smear of bm. dressing intact. skin cleansed. Had taken O2 off, back in place. was semi cooperative with turning and cleaning. 2PA. f/c patent, skinc are done, scrotum elevated with pillows, increased scrotal edema noted. legs and hob elevated to his comofrt, call light fluids at hands reach. Bed alarm on. awake, argumentative, all procedures explained, semi to not receptive to instructions.
--- NOTE | 2021-07-20 00:45 | NUR ---
PT PROVIDED WITH PUDDING, LOWERED HOB FOR PT
--- NOTE | 2021-07-20 00:50 | NUR ---
CALL LIGHT ON, PT NEEDED BLANKETS PULLED OVER, BED LOWERED, TABLE REPOSITIONED, MADE PT PULLED BLANKET BY HIMSELF, MOVED TABLE, NO FURTHER NEEDS
--- NOTE | 2021-07-20 01:05 | NUR ---
CALL LIGHT ON, "MY AIR TUBE FELL OFF!" IN RM TO ASSIST PT, NO FURTHER NEEDS AT THIS TIME
--- NOTE | 2021-07-20 02:00 | NUR ---
pt drowsy, call light had fallen?. placed back on his hands, hob elevated, O2 in place. f/c patent. legs elevated. slurred speech, TV on
--- NOTE | 2021-07-20 02:06 | NUR ---
PT HAVING TROUBLE FALLING ASLEEP, SUGGESTED PT TRY TURNING OUT THE LIGHT, PT ABLE TO DO SO BYSELF, PT APOLOGIEZS FOR CALLINGN SO OFTEN, ENCURAGED PT TO TRY TO REST, NO FURTHERNEEDS AT THIS TIME
--- NOTE | 2021-07-20 02:30 | NUR ---
Drowsy, closed eyes off and on, O2 2LNC in place. hob elevated, call light at hands reach, fluids at easy hand reach. Calm, quiet. has not slept, Trazadone partially effective
--- NOTE | 2021-07-20 02:48 | NUR ---
PT USED CALL LIGHT, O2 2L NC IN PLACE, HOB ELEVATED, VERY DROWSY, TOOK OFF SOCKS AND THREW THEM ONTO FLOOR, "I CAN NOT REPOSITION MYSELF, I DO NOT KNOW EHERE THE BED CONTROLS ARE". PT INSTRUCTED TO REACH L SIDED RAIL WITH R HAND AND TRY AND REPOSITION SELF, PT TRIED DIF WELL, THIS RN HELPED REPOSITION HIS R LEG, THEN HE WANTED TO GO TO THE LEFT, GOT ANGRY THAT HE 'COULD NOT DO IT, KENDALL TOO WEAK'. L LEG REPOPSITIONED. 'GIVE ME A DRINK OF WATER', PT REMINDED THAT THE WATER JUG WAS VERY CLOSE LESS THAN AN ARMS REACH ON TABLE. AFTER MUMBLING WAS ABLE TO TAKE A SIP OF HIS VERY EASY TO REACH WATER JUG. COVERS OFF AT HIS REQUESTS. ATTACHED BED COTROL PLACED ON LEFT HAND AND PT INSTRUCTED ON HOW TO PUSH CONTROLD. STARTED FALLING ASLEEP MCC THROUGH INTERACTION. WATCHING TV. WAS COOP WITH ASSESSMENT
--- NOTE | 2021-07-20 03:53 | NUR ---
eyes closed, O2 in place, no resp distress, call light at hands reach
--- NOTE | 2021-07-20 05:12 | NUR ---
Pt currently resting, eyes closed, O2 2LNC, sats 96%, lungs dim t/o, gets nebs, takes O2 tubing off nares frequently.drowsy, awakes easily and went back to sleep easily. HOB elevated, has moist productive at times cough, Lungs dim t/o. aspiration precautions in place. HOB elevated. no requests, calm, followed instructions. Has slept at least 1.5 hrs now. bruising arms, ches and legs healing. edema to penile and scrotum, scrotum more edematous than at begining of shift. elevated with pulloes, f/c patent, draining clear urine at this time. much improved UO too. powder applied to improved redness under skin folds and scrotal area. Allevyn x3 buttocks and thigh areas. edematous from hips to LE, elevated. Was incoantinent of small amount of bm, skin care done. No IV at this time. Pt was very anxious, irritable, labile mood, demanding much of this shift. easily redirectable at times, not following instructions. Received Seroquel 12.5mg, not effective. Received 2 doses of Trazadone per insomnia and it was partially effective, effective now. pt was calmer for about a couple hours after taking second dose of Trazadone. at beginig of shift pt used call light at least every 20-40 mintues for first hour, not receptive and irritable at that time. Pt is 2-3 person assist/giovanni lift.
--- NOTE | 2021-07-20 06:06 | NUR ---
pt used call light. "It fell off" referring to O2 tubing being tosssed out over rails. Pt instructed to demonstrate how the O2 tubing goes over his ears and into nares... "I cant do it, cuate going to since nobody cares" spot check O2 85-87% room air, pulse 90. R 24. O2 kept on blow by fashion by nares and sats went up to 93%. after several cues pt was ble to place O2 tips into nares and looped around R ear correctly, took him several trys before looping onto L nare. sats 96-97% on 2L NC. then went back to sleep, pt praised for trying. Continue to encourage self care/dependency.
--- NOTE | 2021-07-20 07:15 | NUR ---
IN TO PROVIDE PT WITH FRESH WATER
--- NOTE | 2021-07-20 09:09 | NUR ---
SPEECH THERAPY AT BEDSIDE, PATIENT C/O NAUSEA WANTS TO WAIT ON EATING. WILL REASSESS AND THEN GIVE MEDICATIONS
--- NOTE | 2021-07-20 10:00 | NUR ---
Spoke with Jared and updated about working with medicaid. He originally did not want medicare as he felt he did not have the money to pay and was concerned his money would be taken out of his SSI. Explained need for medicaid and pt states understanding.
--- NOTE | 2021-07-20 10:10 | NUR ---
patient still nauseated doesnt want his breakfast, and wants to hold off on his medication till lunch. he is up in the chair talking with Paola, Fish Grader/Barn Manager.
--- NOTE | 2021-07-20 10:38 | NUR ---
Patient sitting up in the chair, requesting more blankets and a towel. He also, says he will take his medications now as well.
--- NOTE | 2021-07-20 11:23 | NUR ---
Am medication given, patient was now less nauseated and felt that he could take his medications. He is up in the chair and the POC is to stay up in the chair until dinner.
--- NOTE | 2021-07-20 11:30 | NUR ---
Spoke with Jared with [facility] in the room. She explains medicaid and medicaid for placement. Pt cont. to want to return to [facility]. UPdated pt that Danni the owners daughter called earlier. They are stating pt cannot return there as he is unsafe. Pt has not been able to fit his wc into the bathroom so has been urinating and having bms on the floor. They state patient is drinking and cannot leave the room, there is a foul smell eminating from the room. Pt cannot walk or transfer on his own. Shea asked if pt's rent is paid and they confirmed through the 05 of August. Danni's mom, Carolyn, has joined the conversation. She states she has sold [facility] and new owners are taking over the end of the month. All want pt out as he is a danger to himself. I suggested they call Gerard at [facility] and update. Let them know we are trying to work with pt, but it is his choice. If he refuses placement, he may need to return there until he is evicted. Shea also asked if he cannot return, if they plan on returning his money. Carolyn states yes, but he will be charged for the carpet and cleaning of the room. Shea asked if they could bring his belongings somewhere if they empty his room. Carolyn states they cannot access his room as they don't have permission. His room is locked and it would take a truck load to remove his belongings. After a long discussion, patient signed papers, again stating he will return to [facility].
--- NOTE | 2021-07-20 12:56 | NUR ---
PATIENT CONTINUES TO BE UP IN THE CHAIR. HE DID GET SICK AFTER EATING HIS LUNCH. ABOUT A 300 ML EMESIS.
--- NOTE | 2021-07-20 14:05 | NUR ---
PATIENT SLEEPING IN THE CHAIR AT THIS TIME, RESPIRATION 20, OXYGEN 96 2L bnc.
--- NOTE | 2021-07-20 16:09 | NUR ---
chair bath given, up to bsc with 2-3 PA/Gait/walker. PM medications given. No pain report except with repositioning.
--- NOTE | 2021-07-20 16:47 | NUR ---
pt got bed bath. call light within reach. no further tasks at this time
--- NOTE | 2021-07-20 18:50 | NUR ---
jo ann continues to want to sit up in the chair, had he reposition in the chair.
--- NOTE | 2021-07-20 19:25 | NUR ---
SHIFT REPORT RECEIVED FROM DAYSHIFT MISA BAILEY AT BEDSIDE. pt AWAKE AND RESTING IN CHAIR, 2LNC IN PLACE. RR EVEN AND UNLABORED. pt REQUESTING PUDDING, AGREES TO WAIT AND EAT WITH EVENING MEDS. NO FURTHER NEEDS, CALL LIGHT IN REACH.
--- NOTE | 2021-07-20 21:30 | NUR ---
ROUNDED ON pt, pt REMAINS IN CHAIR AND AWAKE. APPEARS RELAXED AND PLEASANT AT THIS TIME. REPORTS CONTENTMENT IN CHAIR AND WISHES TO STAY IN CHAIR AT THIS TIME. CALL LIGHT IN REACH AND BLE ELEVATED IN CHAIR.
--- NOTE | 2021-07-20 22:50 | NUR ---
IN TO GET VITALS, PT IS CONTENT SITTING UP IN THE CHAIR, WATKINS EMPTIED, FRESH THICKENED WATER PROVIDED TO PT, NO FURTHER NEEDS AT THIS TIME
--- NOTE | 2021-07-20 23:20 | NUR ---
ASSESSMENT COMPLETE, MEDS CRUSHED AND GIVEN IN PUDDING. NO ISSUES SWALLOWING NOTED. pt REMAINS IN CHAIR, WATKINS PATENT. VSS, pt DENIES PAIN AND NAUSEA. 2LNC REMAINS IN PLACE. pt A/O TO SELF, PLACE. IS CALLING APPROPRIATELY. HARD OF HEARING. CLINICAL MEDICAL TRANSCRIPTIONIST, FLOAT RN, AND HEART COORDINATOR TO ASSIST pt BACK TO BED. THIS RN TO FURTHER ASSESS SKIN AFTER pt IS IN BED.
--- NOTE | 2021-07-20 23:50 | NUR ---
2-3PA FWW PIVOT TO BED FROM CHAIR, BOOSTED, PT NEEDS TIME TO CATCH BREATH, NO FURTHER NEEDS AT TIME
--- NOTE | 2021-07-21 00:15 | NUR ---
IN TO ASSIST RN WITH CARES, TURNING PT
--- NOTE | 2021-07-21 02:50 | NUR ---
IN WITH RN TO FLOAT PT ON BOTH SIDES WITH PILLOW, WATKINS EMPTIED
--- NOTE | 2021-07-21 02:54 | NUR ---
IN ROOM TO ROUND ON pt, pt AWAKE AND RESTING IN BED. 2LNC REMAINS IN PLACE. HR 86, SPO2 95. pt DENIES PAIN AND NAUSEA, OCTAVIANO SOUNDS DIMINISHED OVERALL. BILATERAL HIPS FLOATED, pt TOLERATED WELL. DESENEX POWDER REMAINS IN GROIN FOLDS, WATKINS PATENT. GENERALIZED SCROTUM EDEMA NOTED- MONITORING URINE OUTPUT.pt A/O TO SELF AND PLACE, SOMEWHAT TO TIME. BED ALARM ON. NO ACUTE CHANGES TO ASSESSMENT. CALL LIGHT IN REACH. ALLEVYNS TO POSTERIOR LEFT THIGH AND INNER LEFT THIGH C/D/I.
--- NOTE | 2021-07-21 03:00 | NUR ---
PT PROVIDED A PUDDING
--- NOTE | 2021-07-21 05:08 | NUR ---
PT CALLED FOR HELP, UPON ENTERING THE ROOM HE STATES HE "HAS TO PEE". TOLD PT HE HAS A CATHER DRAINING HIS URINE AND HE SAYS "OH I FORGOT" ADJUSTED THE CATHETER TO WATCH URINE DRAIN THROUGH THE TUBE AND IT IS DRAINING WELL. PT DENIES FURTHER NEEDS. CALL LIGHT IS CLOSE.
--- NOTE | 2021-07-21 05:45 | NUR ---
IN TO GET VITALS, PT NEEDING HELP WITH TV/REMOTE, HAD PT DEMASTRATE USE, WATKINS EMPTIED, PT REQUESTING BLANKETS, NO FURTHER NEEDS AT THIS TIME
--- NOTE | 2021-07-21 06:07 | NUR ---
ROUNDED ON pt, pt AWAKE AND WATCHING TV. ASPIRATION PRECAUTIONS IN PLACE. CALL LIGHT IN REACH. NO NEEDS OR CONCERNS VERBALIZED.
--- NOTE | 2021-07-21 07:34 | NUR ---
Report received from night NATACHA Alvarado. Pt asleep in room, RR even and unlabored. Call light in reach, bed alarm on.
--- NOTE | 2021-07-21 10:44 | NUR ---
Rounded on patient who is resting in bed, currently on 1L NC O2, primary RN at bedside. Pt reports no needs at this time.
--- NOTE | 2021-07-21 10:45 | NUR ---
RN IN ROOM TO ASSESS PT. PT REPEADETLY ASKING QUESIONS ABOUT REMOTE - FORGETFUL BUT ABLE TO RE-ORIANT. WORK OF BREATHING AND SPO2 WORSE THAT PREVIOUS SHIFT ASSESSMENT. REPOSISTIONED IN BED AND IT IMPROVED. 2L NC. BED ALARM ON AND CALL LIGHT IN REACH.
--- NOTE | 2021-07-21 13:00 | NUR ---
PT USES CALL LIGHT TO REPORT EMESIS - 250ML. ENCOURAGED PT TO EAT SLOWLY AT MEALS TO AVOID INDIGESTION.
--- NOTE | 2021-07-21 13:52 | NUR ---
PT USES CALL LIGHT TO REQUEST RN IN ROOM. PT STATES HE WANTS HIS CLOTHES AND IS "GOING HOME". REINFORCED WITH PT WHY HE IS HERE AND CM PLAN FOR DISCHARGE. PT STATES HE DOESNT CARE, WANTS HIS BELONGINGS AND WILL PAY FOR A CAB. ACCORDING TO ADDMISSION ASSESSMENT HE DOES NOT HAVE ANY BELONGINGS IN THE [place]AF[place]. REQUEST TO CHARGE NURSE TO HELP EVALUATE THE SITUATION.
--- NOTE | 2021-07-21 14:10 | NUR ---
RN IN ROOM TO ASSIST PT BACK TO BED WITH 3 OTHERS ASSIST. PT REQUESTS TO USE BSC AND HAS MEDIUM SOFT BROWN BM. WOUND CARE ORDERS FOLLOWED FOR CLEANING AND SKIN PROTECTION. ALLYVEN ON THIGHT REPLACED. PANIS AND SCROTUM AREA CLEANED AND POWDER APPLIED. WATKINS CARE PREFORMED. SCROTUM ELEVATED USING PILLOWCASE, ICE AND A TOWEL. HEAD OF BED ELEVATED FOR ASPIRATION PERCAUTIONS. VS STABLE. BED ALARM ON, CALL LIGHT IN REACH. PT NO LONGER ASKING FOR CLOTHES AND TO LEAVE HOSPITAL. AFTER TRANSFER FROM COMMODE TO BED AND HIM ASKING FOR HELP HE REALIZED THAT HE WAS NOT PREPARED TO GO "HOME". WILL CONTINUE TO ADDRESS SAFE DC PLAN WITH PT.
--- NOTE | 2021-07-21 15:55 | NUR ---
RN IN ROOM TO ADMINISTER SCHEDULED MEDICATIONS. PT NO LONGER SICK TO HIS STOMACH. MEDICATIONS CRUSHED AND PUT IN VANILLA PUDDING PER PT REQUEST. PT RESTING IN BED WATCHING TV. DENIES FURTHER NEEDS. CALL LIGHT IN REACH. BED ALARM ON.
--- NOTE | 2021-07-21 17:24 | NUR ---
PT USES CALL LIGHT TO STATE HE IS NAUSEAS AND NEEDS "PENDLETON BUCKET". HEAD OF BED ELEVATED PER ASPIRATION PROTOCOL.
--- NOTE | 2021-07-21 18:20 | NUR ---
RN IN ROOM TO COMPLETE I/O'S AND VS. URINE OUT PUT IN WATKINS MODERATE AMOUNT, CONCENTRATED. RN ENCOURAGED FLUID ORAL INTAKE. VS STABLE. PT WATCHING TV IN BED, CALL LIGHT IN REACH. BED ALARM ON.
--- NOTE | 2021-07-21 18:26 | NUR ---
PT CONTINUES TO FEEL SICK TO STOMACH - PRN ZOFRAN ADMINISTERED. NO EMESIS NOTED AT THIS TIME.
--- NOTE | 2021-07-21 19:00 | NUR ---
SHIFT REPORT RECEIVED FROM ZABRINA CARBONE AT BEDSIDE. pt AWAKE AND RESTING IN BED, BED ALARM ON AND CALL LIGHT IN REACH. pt RECENTLY MEDICATED WITH PRN ZOFRAN, REPORTS NAUSEA IS IMPROVED. NO FURTHER NEEDS OR CONCERNS.
--- NOTE | 2021-07-21 20:15 | NUR ---
PT O2NC WAS OFF, CALLING TO HAVE STAFF "FIND IT"
--- NOTE | 2021-07-21 21:19 | NUR ---
IN ROOM TO ROUND ON pt, pt AWAKE AND RESTING IN BED. 2LNC IN PLACE ALONG WITH ASPIRATION PRECAUTIONS. pt HAS CALLED MULTIPLE TIMES ASKING FOR SNACK BETWEEN PREFABRICATOR AND ALSO ASKED RT KHOA. pt EDUCATED THAT SNACK WILL BE BROUGHT WITH EVENING MEDS. pt ALSO EDUCATED ON RATIONALE pt WAS NAUSEOUS AFTER EATING LUNCH TOO FAST AND WAS GIVEN PRN NAUSEA MEDICATION PRIOR TO SHIFT CHANGE. pt VERBALIZED UNDERSTANDING. CALL LIGHT IN REACH.
--- NOTE | 2021-07-21 22:46 | NUR ---
ASSESSMENT COMPLETE, SCHEDULED MEDS CRUSHED AND GIVEN IN PUDDING, pt TOLERATED WELL. WHILE COMPLETING SKIN ASSESSMENT, IT WAS NOTED THAT ALLEVYN TO LEFT POSTERIOR THIGH WAS PARTIALLY OFF. EXCORIATIONS NOTED, SKIN CLEANED, WOUND CARE COMPLETE, AND DRESSING DATED/IN PLACE PER MD ORDERS. SOME SLOUGHING NOTED, MEDIHONEY APPLIED TO ALLEVYN ( DIRECTED PER ORDERS). ALLEVYNS TO LEFT INNER THIGH AND RIGHT COCCYX/HIP NOTED AND REMAINS C/D/I. NEW CHUCKS IN PLACE. SCATTERED BRUISES ALSO NOTED- HEALING. ABD TIGHT, DENEIS NAUSEA AND ABD TENDERNESS. VARIOUS SCARS TO KNEES ALSO NOTED. SKIN CLEANED IN ROMEO AREA/GROIN/PANNUS FOLDS PER MD ORDERS, DESENEX POWDER IN PLACE. SCROTUM REMAINS ELEVATED WITH PILLOW SLING. WATKINS PATENT. NO FURTHER NEEDS, CALL LIGHT IN REACH.
--- NOTE | 2021-07-21 23:38 | NUR ---
per staff, pt called multiple times asking for another snack. pt educated that he may have another snack in approx 1 hour. this rn will round at that time to see if pt is awake. pt verbalizes understanding. call light in reach and bed alarm on.
--- NOTE | 2021-07-22 | NUR ---
CATH CARE DONE
--- NOTE | 2021-07-22 00:45 | NUR ---
CALL LIGHT ANSWERED, pt DENIES HE USED CALL LIGHT. PUDDING PROVIDED, BILAT HIPS NOW FLOATED. pt BOOSTED IN BED AND ASPIRATION PRECAUTIONS IN PLACE. BED ALARM ON AND CALL LIGHT IN REACH.
--- NOTE | 2021-07-22 00:45 | NUR ---
IN TO ASSIST RN WITH PT REPOSITIONING, PT NOW FLOATED AT BOTH HIPS, BOOSTED IN BED
--- NOTE | 2021-07-22 03:20 | NUR ---
IN ROOM TO ROUND ON pt, pt REPOSITIONED, pt INITIALLY DECLINED STATING, "NO I'M GOOD, I'M GOOD". PILLOWS UNDER RIGHT SIDE. ASSESSMENT COMPLETE, NO ACUTE CHANGES. SOME SCATTERED WHEEZES NOTED, RT KHOA TO GIVE PRN NEB TREATMENT. NO FURTHER NEEDS, CALL LIGHT IN REACH.
--- NOTE | 2021-07-22 03:30 | NUR ---
INFORMED BY RT KHOA THAT pt REFUSED PRN NEB TREATMENT. WILL MONITOR.
--- NOTE | 2021-07-22 04:10 | NUR ---
PT ACO COORDINATOR LIGHT, NEEDED HELP TO STRAIGHTEN OUT IN BED, HAD PT WORK BED CONTROLS AND MOVE SELF, PT THEN TELLS THIS LABOR GANG SUPERVISOR THAT HE JUST WOKE UP AND FORGOT WHERE HE WAS, PT TRYING TO KEEP THIS LABOR GANG SUPERVISOR IN RM TO DO MORE LITTLE TASKS, ABLE TO DISMISS SELF, NO FURTHER NEEDS AT THIS TIME
--- NOTE | 2021-07-22 06:10 | NUR ---
CALL LIGHT ANSWERED, pt HAD OXYGEN OFF OF FACE PER HEDIS ABSTRACTOR BECKY. 2LNC BACK IN PLACE. pt BOOSTED IN BED, NEW CHUCKS AND GOWN ON D/T SWEAT. pt REFUSES PILLOWS AT THIS TIME TO HELP WITH SKIN BREAKDOWN PREVENTION, EDUCATION PROVIDED. ASPIRATION PRECAUTIONS IN PLACE, HOB RAISED TO 45-50 DEGREES. VSS, SPO2 93% ON 2LNC. RR SOMEWHAT ELEVATED BUT WITHIN PARAMETERS, WILL MONITOR. ROLAND PATENT. pt INITIALLY REPORTS NAUSEA, RESOLVED W/O MED INTERVENTION.
--- NOTE | 2021-07-22 07:10 | NUR ---
REASSESSED pt, pt AWAKE AND RESTING IN BED. 2.5LNC IN PLACE, SPO2 LOW 90'S. NO DISTRESS NOTED. CALL LIGHT IN REACH AND BED ALARM ON.
--- NOTE | 2021-07-22 07:20 | NUR ---
Patient has been on the call light 3x in the last 30 seconds. Talked with the patient about needing to cluster his needs so that we can better assist him. And he was also very agitated this AM and didnt want to get up for breakfast, stating "i just want to stay in bed, quit being disturbed and sleep" Updated the patient that he would be allowed to stay in bed for breakfast and to sleep, but he would need to get up for lunch. He verbalized understanding
--- NOTE | 2021-07-22 08:05 | NUR ---
Went to give the patient his medication, he appeared to be asleep. Breakfast was left at bedside as well, and I will return to give his medications when he wakes and calls for his breakfast.
--- NOTE | 2021-07-22 08:42 | NUR ---
AM medications, AM assessment completed. Patient is nauseated and only ate 50% of his breakfast, As he eats he cough and sound very moist, he continous coughs when eating and swallows his sputum/regurgitation. He denies the need for an antiemetic. No vomiting this AM as yet. He just wants to be left alone now.
--- NOTE | 2021-07-22 09:01 | NUR ---
PATIENT WAS ON RA FOR A SHORT PERIOD. RT AT BEDSIDE, OXYGEN WENT TO 74%, DBC EXERCISE, AND 2L OXYGEN RESUMED. RT TREATMENT GIVEN, OXYGEN REASSESSED, 87% AT THIS TIME. WILL REASSESS TO MAKE SURE LEVEL IS CONTINUING TO RECOVER.
--- NOTE | 2021-07-22 10:39 | NUR ---
CALL LIGHT ANSWERED, PATIENT REQUESTING US TO CALL HELPING HANDS AND ASK FOR MADELAINE TO LET HER KNOW HE IS IN THE HOSPITAL. ADVISED THE PATIENT THAT IT WAS FRIDAY, BUT MAYBE TOMORROW WE WILL BE ABLE TO CALL HER
--- NOTE | 2021-07-22 15:05 | NUR ---
ROUNDED ON PATIENT, HE IS ASLEEP. WILL WAIT TO GIVE MEDICATIONS TILL HE WAKES RESPIRATION AT 20, APPEARS TO BE IN NO ACUTE DISTRESS AT THIS TIME.
--- NOTE | 2021-07-22 15:41 | NUR ---
PATIENT AWAKE NOW, EVENING MEDCIATIONS GIVEN WITH CRUSHED IN APPLESAUCE. 1 ADDITIONAL SNACK OF VANILLA PUDDING GIVEN WELL.
--- NOTE | 2021-07-22 18:45 | NUR ---
PATIENT CALLED REQUESTING TO GO TO THE RESTROOM. ASSIST OF 1 STANDBY NEEDED. OXYMASK PLACED FOR RECOVERY AFTER RETURNING TO BED. DINNER TRAY REMOVED, PATIENT SILL SITTING EDGE OF BED.
--- NOTE | 2021-07-22 19:05 | NUR ---
SHIFT REPORT RECEIVED FROM ZABRINA BAILEY AT BEDSIDE. pt AWAKE AND RESTING IN BED, ICE PACK FROM UNDER SCROTUM REMOVED, WATKINS APPEARS TO BE LEAKING, ZABRINA BAILEY TO REINFLATING WATKINS BALOON AT BEDSIDE AND WATKINS MANIPULATED, WILL MONITOR. pt ALSO REPOSITIONED IN BED AT THIS TIME BY STAFF, 2LNC IN PLACE. CALL LIGHT IN REACH.
--- NOTE | 2021-07-22 19:15 | NUR ---
during shift report, griffin catheter was found to be leaking. Reassess the bulb and it only had 6mls of NS, placed an additional 4 mls, and griffin appeared to be flowing better and not to be leaking. Linens were changed and a new allevyn placed on the posterior thigh with mkney. His UOP hourly average for his shift was approximately 37.5 mls.
--- NOTE | 2021-07-22 21:00 | NUR ---
pt CALLING AND ASKING FOR FREQUENT SNACKS, pt EDUCATED SNACK WILL BE BROUGHT WITH EVENING MEDS. NO FURTHER NEEDS, CALL LIGHT IN REACH, ASPIRATION PRECAUTIONS IN PLACE AND 2LNC ON.
--- NOTE | 2021-07-22 22:45 | NUR ---
ASSESSMENT COMPLETE, SCHEDULED MEDS CRUSHED AND GIVEN IN PUDDING. pt ANNOYED WITH THIS RN AND WISHES TO WATCH MOVIE, REPORTS LIGHTS ARE "BLOCKING THE TV". pt REFUSES TO BE REPOSITIONED IN BED AT THIS TIME, UNABLE TO FULLY ASSESS WOUND DRESSINGS. DRESSINGS WERE LAST ASSESSED AT SHIFT CHANGE WHEN ONE OF THE DRESSINGS WERE CHANGED BY DAYSHIFT RN. WILL MONITOR. pt DENEIS PAIN AND NAUSEA, ASPIRATION PRECAUTIONS REMAIN IN PLACE. CALL LIGHT IN REACH.
--- NOTE | 2021-07-23 00:30 | NUR ---
pt RESTING IN BED WITH EYES CLOSED. RR EVEN AND UNLABORED. NO DISTRESS NOTED. 2LNC REMAINS IN PLACE, CALL LIGHT IN REACH.
--- NOTE | 2021-07-23 01:00 | NUR ---
pt REPOSITIONED IN BED WITH HELP FROM ASSEMBLY TECHNICIANMISA SALAS AND CONCEPCIÓN LAND. WETNESS NOTED UNDER SCROTUM, ROMEO CARE DONE PER MD ORDERS AND SCROTUM ELEVATED WITH HAMMOCK SLING. LINENS CHANGED AND WOUNDS BETTER ASSESSED AND COVERED, SITES C/D/I. WATKINS REMAINS IN PLACE, EMPTIED AT THIS TIME. MONITORING OUTPUT. ASPIRATION PRECAUTIONS IN PLACE, PILLOWS UNDER LEFT HIP. 2LNC IN PLACE. pt TOLERATED POORLY AND INITIALLY ARGUED WITH STAFF REGARDING CHANGING POSITION, BUT THEN AGREES. pt INITALLY STATES ANGRILY, "NO, I'M STAYING RIGHT HERE. I'M NOT MOVING!". WILL MONITOR.
--- NOTE | 2021-07-23 01:36 | NUR ---
pt HAS CALLED 2-3 TIMES IN THE LAST 2 MINUTES AND ASKING FOR VARIOUS NEEDS LIKE A WARM BKANKET, ADDITIONAL PILLOW, ECT. pt SPOT CHECKED, SPO2 LOW 90'S, HR 80'S. RR 20. WILL MONITOR.
--- NOTE | 2021-07-23 02:43 | NUR ---
pt RESTING IN BED WITH EYES CLOSED AND RR EVEN AND UNLABORED. 2LNC REMAINS IN PLACE. BED ALARM REMAINS ON AND CALL LIGHT IN REACH.
--- NOTE | 2021-07-23 03:23 | NUR ---
call light answered, pt wants help with head of bed, this rn and arben lewis in room. pt then denies needing anything and states, "i called, but then i called again and i said nevermind". pt repositioned in bed, bilateral hips floated after pt argued with staff and initially refused to be turned, stating, "i'll just pull it out when you go". pt educated on prevention of skin breakdown and and wound care. griffin patent, no leaking noted at this time, scrotum remains elevated in pillow case sling. bed alarm on and call light in reach.
--- NOTE | 2021-07-23 03:27 | NUR ---
call light answered, pt reports his pillow "fell on the floor". pillow from right hip out of bed and on floor, when asked what happened and if pt pulled out pillow pt states, "i pulled it a little and then i sneezed and it fell down". pt agrees to have pillow under right shoulder/arm for comfort. call light in reach.
--- NOTE | 2021-07-23 04:50 | NUR ---
CALL LIGHT ANSWERED, pt REQUESTING HELP WITH PILLOWS AND WISHES TO BE BOOSTED IN BED. WITH HELP FROM EMTSMISA SALAS, pt BOOSTED IN BED AND REPOSITIONED, PILLOWS UNDER RIGHT SIDE. HOB ELEVATED AND ASPIRATION PRECAUTIONS IN PLACE. ASSESSMENT COMPLETE, NO ACUTE CHANGES. WATKINS PATENT, NO LEAKING NOTED. CALL LIGHT IN REACH.
--- NOTE | 2021-07-23 05:14 | NUR ---
PT CALLED NEEDED HOB DOWN A LITTLE. NO OTHER NEEDS.
--- NOTE | 2021-07-23 06:53 | NUR ---
ROUNDED ON pt, CONCEPCI[place]N LAND COLLECTING VS AND I&O'S. WATKINS REMAINS PATENT, NO LEAKING NOTED. pt REFUSED TO BE REPSOTIONED AT THIS TIME, CALL LIGHT IN REACH.
--- NOTE | 2021-07-23 07:36 | NUR ---
PATIENT CALLED ASKING FOR HELP. WENT TO THE PATIENT'S ROOM AND HE WAS SAYING HE COULDN'T BREATHE. RESPIRATION AT 24, OXYGEN AT 90% 2l BNC. ASSESSMENT WAS COMPLETED AND VS SIGNS WELL. SOME EXPIRATORY WHEEZES BILATERAL UPPER LUNGS, CONGESTION NOTED WELL. HAD THE PATIENT TAKE IN SLOW DEEP BREATHE, REEDUCATING ON PROPER BREATHING TECHNIQUES AND ALSO REDEMONSTRATED THE INCENTIVE SPIROMETOR. HIS RESPIRATION ARE NOW 22. HE IS ANXIOUS AND EASILY GETS AGITATED IF YOU ARE NOT ABLE TO DO THINGS QUICK HE THINKS THEY SHOULD BE DONE. OFFERED A NEBULIZER TREATMENT BUT HE REFUSES AND SAYS I THINK I AM JUST GOING TO GO TO SLEEP.
--- NOTE | 2021-07-23 09:26 | NUR ---
PATIENT IN BED RESTING AT THIS TIME. VITALS AND I&O'S CHARTED. PATIENT WANTS TO KEEP BREAKFAST TO WORK ON IT. PATIENT REFUSED SHOWER AND BED BATH. CALL LIGHT IN REACH. NO FURTHER NEEDS AT THIS TIME. BED ALARM OFF.
--- NOTE | 2021-07-23 09:56 | NUR ---
patient breathing easier, respiration at 20, still continues to have some wheezing but has improved since nebulizer treatment was given. AM medication given with applesauce.
--- NOTE | 2021-07-23 10:00 | NUR ---
Spoke with lizbeth. He is requesting and update, let him know we cont. to await [facility]. If he can return to baseline and stand and pivot, he could return to [facility] and awaiting to hear from [facility] from there.
--- NOTE | 2021-07-23 10:57 | NUR ---
patient has been on his call light approximately 20 times since 719. Reeducated him on the importance of proper use of the call light and how he also needs to be able to do more for hisself especially with him adamently wanting to go home. Also advise the patient that he will need to be up in the chair for lunch, he refused being out of bed yesterday. Patient verbalizes understanding. WITH HIS SLIGHT INCREASE IN SOB/WHEEZING, HAS ORDERED LASIX IV X 1.
--- NOTE | 2021-07-23 11:24 | NUR ---
patient c/o pain to the right arm after helping to pull hisself up in bed with the 2 CNAs, he is requesting pain medication, advised i would check and also get him a heat pack afterwards with the assist of 2 contact guard and fww, he stood and pivoted to the chair. he know is in the chair, eyes closed even right after saying he needs pain medication. will give him heat pack and reassess situation and pain medicated if needed.
--- NOTE | 2021-07-23 11:30 | NUR ---
PO Lasix given, he immediate coughs even with moderate thick liquids, this is not new for the patient, just continues to appear this is a chronic condition for the patient. will continue to monitor closely.
--- NOTE | 2021-07-23 13:03 | NUR ---
PATIENT C/O PAIN HE FIRST SAID IT WAS HIS RIGHT ARM, BUT WHEN ASSESSED HE WAS POINTING TO THIS BACK. HE CLARIFIED SAYING ITS HIS BACK. MD INFORMED OF THE PATIENT COMPLAINING OF THE PAIN HE SAYS SINCE HE HELPED THEM PULLED HIM UP IN BED PRIOR TO GETTING OOB. HEAT WAS APPLIED TO THE BACK AND THE PATIENT REPOSITIONED
--- NOTE | 2021-07-23 13:15 | NUR ---
patient dry heaving, nauseated, decreased appetite. VS completed, oxygen 96% 2 l BNC, decreased to 1.5L. Repositioned and will give antiemetic. Assessment completed as well
--- NOTE | 2021-07-23 15:37 | NUR ---
patient c/o nausea/dry heaving again. medication given refer to emar. the patient has been very anxious/demanding today, it appears that some of this is loneliness, for when you are in the room with him he gets better, when you distract him he is better or when he is napping. PRN seroquel was also given.
--- NOTE | 2021-07-23 16:40 | NUR ---
Patient was sleeping at 1623, woke and call out for assitance. I went to his room to investigate and he was wanting to be repositioned without helping. Advise the patient that he would need to do the majority of his repositioning, to continue to improve his mobility, patient rayo then agrees, with minimial assistance from myself he moved left to right then back in the chair and raised hisself up. He then asked if he could have a snack and when supper was cause he was hunger. I advised the patient that supper should be here within the hour and yes he could have the rest of his vanilla pudding. Then I advised the patient that I would return around [phone] to check on him, he verbalized understanding.
--- NOTE | 2021-07-23 17:46 | NUR ---
patient has improved with his calling at this time, he is calling more appropritely. he is in the chair watching TV, with no compliant of nausea, and his anxiety has improved as well.
--- NOTE | 2021-07-23 17:52 | NUR ---
PATIENT SITTING IN CHAIR WATCHING TV. VITALS AND I&O'S CHARTED. HELPED PATIENT GET REPOSITIONED. CALL LIGHT IN REACH. NO FURTHER NEEDS AT THIS TIME.
--- NOTE | 2021-07-23 19:30 | NUR ---
PATIENT CALLED STATED NEEDS HELP. BED ADJUSTMENT DEMONSTRATED BY THIS CARDING MACHINE FEEDER TO THE PATIENT WELL THE OVERHEAD LIGHT CONTROL. PATIENT ASKED FOR SNACKS. MISA BAILEY NOTIFIED AND SHE ALLOWED PUDDING OR APPLE SAUCE. VANILLA PROVIDED. NO OTHER NEEDS AT THIS TIME.
--- NOTE | 2021-07-23 19:35 | NUR ---
REPORT RECEIVED FROM DAY SHIFT RN. PT SITTING UP IN BED EATING PUDDING. DENIES NEEDS AT THIS TIME. WHITE BOARD UPDATED. CALL LIGHT IN REACH.
--- NOTE | 2021-07-23 20:19 | NUR ---
ORDER PLACED PER SPEECH ASSESSMENT COMPLETED TODAY. PT CALLED, NEEDED HELP WITH FINDING THE [facility], ASSISTED.
--- NOTE | 2021-07-23 22:15 | NUR ---
EVENING ASSESSMENT COMPLETE. SCHEDULED MEDS ADMIN PER EMAR CRUSHED IN PUDDING. NO COUGHING OR CHOKING NOTED. 1.5L/NC IN PLACE. RESPIRATIONS EVEN. PT DENIES PAIN OR NAUSEA. WATKINS PATENT WITH YELLOW URINE. PT BECAME AGITATED AND REFUSED WHEN THIS RN AND SUPERVISOR METAL FURNITURE ASSEMBLY ATTEMPTED TO DO WATKINS CARE. WILL ATTEMPT AT A LATER TIME. ASSISTED TO REPOSITION IN BED. NO FURTHER NEEDS AT THIS TIME, PT STATES "I JUST WANT TO GO BACK TO SLEEP." CALL LIGHT IN REACH.
--- NOTE | 2021-07-24 00:26 | NUR ---
CALL LIGHT ANSWERED. IN ROOM TO ASSIST PT REPOSITION IN BED AND STRAIGHTEN LINENS. NO FURTHER NEEDS. CALL LIGHT IN REACH.
--- NOTE | 2021-07-24 00:58 | NUR ---
PT COMPLAINS OF NOT BEING ABLE TO SLEEP. PRN FOR SLEEP ADMIN CRUSHED IN APPLE SAUCE. WATKINS CARE COMPLETED BY SENIOR PROJECT MANAGER. NO FURTHER NEEDS.
--- NOTE | 2021-07-24 03:54 | NUR ---
PT DOZING ON AND OFF. ASSISTED TO REPOSITION. ASSISTED WITH TV REMOTE. NO FURTHER NEEDS.
--- NOTE | 2021-07-24 05:54 | NUR ---
VS AND I&O COMPLETE. ASSISTED PT TO REPOSITION IN BED. PT DOZING OFF AND ON. REORIENTED TO TIME. 1.5L/NC IN PLACE. RESPIRATIONS EVEN. NO FURTHER NEEDS. CALL LIGHT IN REACH.
--- NOTE | 2021-07-24 07:20 | NUR ---
shift report completed. no significant events during the previous shift. his call light and tv remote is within reach, he appears to be in no acute distress. respiration at 22, 1.5L BNC, hob at 38 degrees.
--- NOTE | 2021-07-24 08:15 | NUR ---
VERY IRRITABLE, WANTS TO BE LEFT ALONE AND SLEEP.
--- NOTE | 2021-07-24 10:00 | NUR ---
Spoke with Jared and updated I spoke with Francesca Chisholm this am. She will work on getting pts bank card from the [facility] if he will agree to her picking up his bank card from his room. Francesca works for [employer]. Jared gives permission and asks she get his bank card and tolbert which are in his sock in his shoe next to the bed. He also requests she get his cowboy hat. Informed I will call her back and asks her. She will also need a letter from his stating its ok to enter his room. He does not have his keys and asks she get them from the [facility].
--- NOTE | 2021-07-24 10:35 | NUR ---
Patient with minimal/contact guard moved from bed to chair and fww. PT in the room at this time working with him.
--- NOTE | 2021-07-24 10:37 | NUR ---
Updated patient and the of orders for discharge removed IV and patient is going to shower.
--- NOTE | 2021-07-24 13:00 | NUR ---
patient is watching TV, using his call light less, napping in between cares. continue to work with the patient on safety with the stand pivot. he continues to need contact guard a this time.
--- NOTE | 2021-07-24 13:39 | NUR ---
PATIENT TO BED FROM CHAIR, 2PA FWW PIVOT TRANSFER. PATIENT ASSISTED IN MOVING UP IN BED. VITALS AND I&O'S CHARTED. CALL LIGHT IN REACH. BED ALARM ON. NO FURTHER NEEDS AT THIS TIME.
--- NOTE | 2021-07-24 14:15 | NUR ---
PATIENT DRY HEAVING, ANTIEMETIC GIVEN AND 1500 MEDICATION. uPDATED THE PATIENT ON HIS PLAN OF CARE AND THE IMPORTANCE OF WORKING HARD TO GET HIS STRENGTH TO PREHOS[facility]ITAL.
--- NOTE | 2021-07-24 14:35 | NUR ---
Called Vaishali and she states she will attempt to get his things tomorrow and she does want a letter signed by Jared with his permission.Typed the following letter: July [facility] [address] [place], [place] [address] To whom it may concern, Please allow Vaishali Chisholm from the Department of Human Services, Aging and People with Disabilities to enter my room to obtain my banking information, tolbert, and hat. Sincerely, Jared Lewis Took letter to pts room and he signed. Again letting me know his card and tolbert are in a sock in his shoe. Let him know I had notified Vaishali of this. Pt cont. to want to return to the [facility] but is aware they do not want him to return as he is unsafe living there. Faxed letter to Vaishali at [facility] as requested.
--- NOTE | 2021-07-24 16:52 | NUR ---
PATIENT C/O BEING HUNGRY, APPLESAUCE GIVEN WITH HIS 1700 MEDICATION AND ADVISED HIM SUPPER SHOULD BE HER WITHIN THE HOUR.
--- NOTE | 2021-07-24 18:26 | NUR ---
PT HAS HAD LARGE BOWEL MOVEMENT IN BED. THIS RN TO ROOM TO ASSIST WITH CLEANING. DRESSINGS TO RIGHT UPPER BACK OF LEG AND LEFT GLUTEAL AREA ARE LOOSE AND SOILED. DRESSINGS REMOVED. GREEN AND YELLOW DRAINAGE NOTED FROM DRESSING OVER LEFT GLUTEAL AREA. YELLOW AND SEROUS ANGUIOUS DRAINAGE NOTED FROM RIGHT UPPER LEG. WOUNDS CLEANED WITH SOAP AND WATER AND SALINE. MASTASOL APPLIED. NEW ALLEVYNS IN PLACE. RIGHT SIDE OF ABDOMEN NOTED TO BE RED AND SWOLLEN. PTS PRIMARY RN UPDATED. PT REPOSITIONS SELF IN BED. HEAD OF BED ELEVATED TO 30 DEGREES. CALL LIGHT WITHIN REACH. SHIPYARD HELPER AT BEDSIDE.
--- NOTE | 2021-07-24 18:28 | NUR ---
PATIENT HAD INCONT. BM. ROMEO CARE AND CATH CARE DONE. NEW ATTENDS AND GOWN IN PLACE. SKIN CARE DONE. VITALS AND I&O'S CHARTED. CALL LIGHT IN REACH. NO FURTHER NEEDS AT THIS TIME.
--- NOTE | 2021-07-24 19:39 | NUR ---
REPORT RECEIVED FROM DAY SHIFT RN. PT LYING IN BED WATCHING TV. DENIES NEEDS AT THIS TIME. WHITE BOARD UPDATED. CALL LIGHT IN REACH.
--- NOTE | 2021-07-24 20:00 | NUR ---
ASSISTED PRIMARY RN GILBERT. V/S TAKEN. WATKINS CARE DONE. CHANGED CHUX AND DRAWSHEET. PATIENT REPOSITIONED.
--- NOTE | 2021-07-24 20:40 | NUR ---
EVENING ASSESSMENT COMPLETE. SCHEDULED MEDS ADMINISTERED PER EMAR CRUSHED IN PUDDING. HOB ELEVATED. NO COUGHING OR CHOKING WITH PUDDING. PT HAD THICKENED ORANGE JUICE ON BEDSIDE AND TOOK A "BIG DRINK" PT COUGHING AFTER LIQUIDS. EDUCATION PROVIDED, CHIN TUCK TO SWALLOW AND TAKING SMALLER DRINKS. ALLEVYN ON BILAT POSTERIOR THIGHS CDI. WATKINS PATENT WITH YELLOW URINE. WATKINS CARE COMPLETE. ROMEO CARE DONE AND POWDER PLACED. ASSISTED TO REPOSITION IN BED. NO FURTHER NEEDS AT THIS TIME. CALL LIGHT IN REACH.
--- NOTE | 2021-07-24 21:56 | NUR ---
PATIENT HAD EXLARGE FORMED BM. THIS HEAD STOCK TRANSFER CLERK DID ROMEO CARE AND APPLIED BARRIER CREAM. CHANGED CHUX AND DRAWSHEET. PATIENT REPOSITIONED BY 2 PA WELFARE ELIGIBILITY INTERVIEWERTARA SALAS AND THIS CONCRETE ENGINEERING TECHNICIAN. MADE FRESH THICKENED WATER. CALL LIGHT AND TV REMOTE ON HIS HAND.
--- NOTE | 2021-07-24 23:56 | NUR ---
PT RESTING IN BED WITH EYES CLOSED. RESPIRATIONS EVEN. CALL LIGHT IN REACH.
--- NOTE | 2021-07-25 00:33 | NUR ---
CALL LIGHT ANSWERED. PT REPORTS HE JUST WOKE UP AND WOULD LIKE A SNACK. PUDDING PROVIDED.
--- NOTE | 2021-07-25 01:38 | NUR ---
PROVIDED WARM BLANKET PER PATIENT'S REQUEST. NO FURTHER NEEDS NOTED. CALL LIGHT WITHIN REACH.
--- NOTE | 2021-07-25 03:30 | NUR ---
PATIENT CALLED AND REQUESTED HELP. PATIENT STATED "I CANT CATCH MY BREATH". PATIENTS OXYGEN PLACED BACK IN HIS NOSE. PATIENTS OXYGEN SATURATION FOUND TO BE 72%. PATIENT PLACED ON 5L VIA NC. PATIENT RECOVERED QUICKLY. PATIENT IS NOW BACK IN 1.5L VIA NC. PATIENT REPORTS SOB HAS SUBSIDED. NO FURTHER NEEDS NOTED. CALL LIGHT IN REACH.
--- NOTE | 2021-07-25 04:30 | NUR ---
CALL LIGHT ANSWERED. PT REQUESTING ASSISTANCE WITH REPOSITIONING BED. IN TO ASSIST. VS AND I&O DONE. PUDDING PROVIDED PER REQUEST. 2PA TO REPOSITION IN BED. PT DENIES PAIN OR NAUSEA. ASSESSMENT COMPLETE. NO FURTHER NEEDS. CALL LIGHT IN REACH.
--- NOTE | 2021-07-25 07:32 | NUR ---
Patient in bed watching tv, no distress. Patient denies pain and or needs. Personal supplies and call light within reach.
--- NOTE | 2021-07-25 08:04 | NUR ---
Evans refused am cares, and to get up into chair. Call light within reach no further tasks at this time
--- NOTE | 2021-07-25 09:21 | NUR ---
henrik is sitting up in bed. i&o and vitals charted. call light within reach, no further tasks at this time
--- NOTE | 2021-07-25 11:28 | NUR ---
Patient declined to get up to the chair for breakfast and lunch. Discussed plan of care with patient, he still declined. Patient reports the chair is not comfortable for him. Patient worked with physical therapy this morning, tolerated well per their report. Will monitor and continue to encourage activity.
--- NOTE | 2021-07-25 13:07 | NUR ---
pt is sitting up in bed. i&o and vs charted. call light within reach. no further tasks at this time
--- NOTE | 2021-07-25 14:03 | NUR ---
No change in plan, cont. to work with PT. If returns to baseline will be able to dc to home. [facility] cont. to work towards medicaid for placement. They require bank statements for financials before they can go on to the physical assessment. Pt does agree to go to [facility] if he is accepted and mediciad is approved.
--- NOTE | 2021-07-25 15:47 | NUR ---
Patient in bed watching tv, no distress. Patient denies needs. Personal supplies and call light within reach.
--- NOTE | 2021-07-25 17:35 | NUR ---
Haley care done with TECTONOPHYSICIST assist.
--- NOTE | 2021-07-25 17:46 | NUR ---
pt is sitting up in bed watching tv. i&o and vs charted. call light within reach no further tasks at this time
--- NOTE | 2021-07-25 19:32 | NUR ---
RECEIVED REPORT FROM DAY SHIFT RN. PATIENT IS RESITNG IN BED WATCHING TV. NO NEEDS NOTED. CALL LIGHT IN REACH.
--- NOTE | 2021-07-25 21:20 | NUR ---
PLACED CALL TO DR LYNCH. REPORTED CONCERN OF PATIENTS 8/10 PAIN IN HER ABD. NEW VERBAL ORDER RECIEVED AND VERIFIED USING THE REPEATBACK METHOD. DISCUSSED TRANSTIIONING PATIENTS IV ELICEO TO PO. RECEIVED VERBAL ORDER FROM MD AND VERIFIED USING THE REPEATBACK METHOD. WILL PUT ORDERS IN PLACE. UPDATED PATIENT ON PLAN OF CARE FOR PAIN MANAGEMENT.
--- NOTE | 2021-07-25 21:40 | NUR ---
PATIENT ASSESMENT COMPLETED. PATIENTS VITALS TAKEN AND RECORDED. WATKINS EMPTIED AND WATKINS CARE COMPLETED. PATIENT REPOSITIONED SELF IN BED. PATIENT REMAINS ON 1.5 L VIA NC. PATIENT DENIES ANY PAIN OR SOB. SCHEDULED MEDICATIONS GIVEN PER ORDER. PATIENT PROVIDED FRESH ICE WATER AND PUDDING PER REQUEST. PATIENT HAS NO IV PER ORDER. PATIENT DENIES ANY FURTHER NEEDS AT THIS TIME. CALL LIGHT IN REACH.
--- NOTE | 2021-07-25 22:09 | NUR ---
PT WAS SWABBED FOR COVID 19
--- NOTE | 2021-07-25 22:58 | NUR ---
CALL LIGHT ON TWICE IN 10MINS, IN TO CHECK ON PT BOTH TIMES, NO FURTHER NEEDS, PT APOLOGIZES FOR CALLING SO MUCH, NO FURTHER NEEDS
--- NOTE | 2021-07-25 23:00 | NUR ---
BROUGHT PUDDING PER PATIENT'S REQUEST. PATIENT AWAKE & SITTING UP IN BED. NO FURTHER NEEDS NOTED. CALL LIGHT WITHIN REACH.
--- NOTE | 2021-07-25 23:31 | NUR ---
PRN SLEEP MEDICATION GIVEN PER ORDER. PATIENT PROVIDED PUDDING FOR SNACK. NO FURTHER NEEDS NOTED. CALL LIGHT IN REACH. PATIENT IS RESTING IN BED WATCHING TV.
--- NOTE | 2021-07-26 00:54 | NUR ---
PATIENT IS RESTING IN BED WITH EYES CLSOED, RR 18. CALL LIGHT IN REACH.
--- NOTE | 2021-07-26 02:10 | NUR ---
PATIENT PROVIDED WITH FRESH WATER PER REQUEST. NO FURTHER NEEDS NOTED. CALL LIGHT IN REACH.
--- NOTE | 2021-07-26 03:21 | NUR ---
PATIENT ASSISTED WITH NEW GOWN. NO FURTHER NEEDS NOTED. CALL LIGHT IN REACH.
--- NOTE | 2021-07-26 05:00 | NUR ---
PATIENT CALLED AND REQUESTED TISSUES. VITALS TAKEN AND RECORDED. WATKINS EMPTIED AND WATKINS CARE COMPLETED. PATIENT REMAINS ON 1.5L VIA NC. PATIENT DENIES ANY PAIN OR SOB. PATIENT DENIES ANY NEEDS. CALL LIGHT IN REACH. PATIENT IS RESTING IN BED WATCHING TV.
--- NOTE | 2021-07-26 05:42 | NUR ---
PATIENT IS RESTING IN BED WITH EYES CLSOED, RR 16. CALL LIGHT IN REACH.
--- NOTE | 2021-07-26 07:43 | NUR ---
Patient resting in bed, eyes closed, respirations even and non labored. Patient has no notable distress. Personal supplies and call light within reach.
--- NOTE | 2021-07-26 10:01 | NUR ---
PATIENT REFUSED ST [facility] THIS AM, STATING, "I JUST NEED TO SLEEP." WILL ATTEMPT AT ANOTHER TIME.
--- NOTE | 2021-07-26 14:57 | NUR ---
Patient assisted from chair to bed, two person assist with walker. Patient tolerating pivot transfers fair. Haley care done at this time. Personal supplies and call light within reach.
--- NOTE | 2021-07-26 15:30 | NUR ---
Spoke with Vaishali Chisholm. She was able to get pts bank card and hat. She states there isn't any money in his shoe. She was able to speak with pt and she will return next Friday. She asks if we can assist pt to obtain his bank statements. Let her know we will try and fax to [facility].
--- NOTE | 2021-07-26 16:40 | NUR ---
Patient resting in bed, no distress. Patient on 1.5L oxygen per nc, respirations even and non labored. Patient has no distress at this time. Personal supplies and call light within reach.
--- NOTE | 2021-07-26 19:45 | NUR ---
pt called, asking about getting help to put clothes on and get a w/c for discharge alhaji, let pt know this councilperson will talk to the rn about his care plan, rn in to see pt
--- NOTE | 2021-07-26 19:49 | NUR ---
PT USED CALL LIGHT, "I WANT SWEAT PANTS, PUT ME IN MY W/C AND LET ME GO BACK TO MY APT, KENDALL DOING BETTER AND I CAN MOVE NOW, SO I CAN GO HOME NOW". TALKED TO PT TOOK SEVERAL MINUTS AND HE STATED, "OK ILL WAIT TIL AM " CM AND md TO BE NOTIFIED. PT TALKING IN A ACLM MANNER AND HE LISTENED WELL. UNABLE TO ASSESS DEGREE OF UNDERSTANDING, BUT HE DID REPEAT BACK WHEN WE TALKED ABOUT, CALM, IN BED HOB ELEVATED, O2 IN PLACE, CALL LIGHT AT HANDS REACH.
--- NOTE | 2021-07-26 20:35 | NUR ---
Pt on 2L NC, sats 99%, weaned down to 1L, spot O2 sats checks for 20 minutes, stayed 95-97%. will leave at 1L NC. lungs dim at baes, moist cough noted after po intake, trace edema to arms and le, lege elevated. f/c draining dark yellow urine. much improved redness under breast, abd and groin area. Allevyn to buttocks and L thigh in place. much more coop. on thickened liquids. took meds w/o problems. call light and fluids at bedside, watching tv
--- NOTE | 2021-07-26 22:30 | NUR ---
in to emptied linen pass-through, pt asked for help to move wrinkles from under hips, rn in to provide a med, boosted pt in bed, no further needs at this time
--- NOTE | 2021-07-26 22:30 | NUR ---
REPOSITIONED IN BED, TRIED TO HELP, BRENNA MILD ARM PAIN WHEN TRYING TO REACH OVER HIS HEAD, ABLE TO BEND KNEEDS AND HELPED. CALMER, SATS SPOT CHECKS ON 1L 94%. SECOND DOSE OF TRAZADONE GIVEN ON REQUESTS. THICKENED LIQUIDS AND CALL LIGHT AT BEDSIDE, HOB ELEVATED TO COMOFRT. LEGS ELEVATED
--- NOTE | 2021-07-26 23:42 | NUR ---
USED CALL MARION "i NEED MY HEAD OF MY BED ADJUSTED", PT HOLDING BED CONTROLS, INSTRUCTED, DID IT HIMSELF.
--- NOTE | 2021-07-27 | NUR ---
in to assist pt with his tv remote, needed his bed moved, small things kept roofer apprentice in rm while this roofer apprentice made multiple attempt to exit rm to assist other pts,
--- NOTE | 2021-07-27 00:40 | NUR ---
TV ON, EYES CLOSED, O2 1LNC, HOB ELEVATED, CALL LIGHT IN LEFT HAND.
--- NOTE | 2021-07-27 00:51 | NUR ---
c/o feeling nauseated, medicated with zofran sl
--- NOTE | 2021-07-27 02:59 | NUR ---
RESTING, EYES CLOSED, O2 1LNC IN PLACE, HOB ELEVATED, FLUIDS AND CALL LIGHT AT HANDS REACH.
--- NOTE | 2021-07-27 05:11 | NUR ---
Pt has been calmer, minor requests. coopearative. wanted to leave at begining of shift, encouraged to stay a few more days due to placement. Cooperative, O2 weaned down to 1LNC, no distress, tolerating well, helps with repositioning, easily redirected when fixated on bed controls. cont to have moist cough after thickened fluids, has asked for snacks several times, encouraged to stay withing diet, snacks given, tolerated well. f/c not chronic patent. Pt slept received trazadone 2 doses. hob elevated to comofrt. no iv. legs elevated.
--- NOTE | 2021-07-27 07:30 | NUR ---
Patient resting in bed, eyes closed, respirations even and non labored. Patient has no notable distress. Personal supplies and call light within reach. Patient on 1L oxygen per nc.
--- NOTE | 2021-07-27 10:23 | NUR ---
PATIENT'S DIET WAS UPGRADED TO MINCED & MOIST WITH MODERATELY THICK LIQUIDS ON FRIDAY, 07/23. HE IS EATING WELL. HE IS RECEIVING BALANCED MEALS WHILE HERE. WILL CONTINUE TO WATCH ST RECOMMENDATIONS FOR CONSISTENCY CHANGES WHILE HERE. NO FURTHER NUTRITION INTERVENTION AT THIS TIME.
--- NOTE | 2021-07-27 11:29 | NUR ---
Patient incontinent of large soft stool. Haley care done. MISA Zamudio removed wound dressings, Dr. Tobias in to see wounds at this time. Attempted to place patient on room air, his sp02 decreased to 87% at this time. Pt placed back on 1L oxygen per nc. Patient denies pain and or shortness of breath.
--- NOTE | 2021-07-27 19:50 | NUR ---
pt called to get help with bed, asked for pudding, rn will bring it with meds, pt ok with plan
--- NOTE | 2021-07-27 20:29 | NUR ---
alert and oriented to self and place, not sure of edna, aware of some news happenings. HOB elevated, O2 1LNC, lungs dim at bases, puding on requests, tolerating liquids well, no emeis, abd large soft, oj, edematous scrotum and penile area, F?C not chornic, patent, draining medium yellow urine. . allevyn to buttocks and L back of thigh,, edemat o LE. no iv, calm, cooperative, follows instructions, watching tv. cont to have moist coough after po intake, recuperates easily, clear phlem expectorated at times. call light and thickened fluids at hands reach
--- NOTE | 2021-07-27 22:04 | NUR ---
PT HAS BEEN CALLING, TRYING TO GET STAFF TO PROVIED MORE SNACK, RN WANTS PT TO WAIT, HE HAS ALREADY HAD MULTILPE PUDDINGS, THIS ASSORTER LET PT KNOW WHAT THE PLAN IS, NO FURTHER NEEDS
--- NOTE | 2021-07-27 23:36 | NUR ---
IN TO ASSIST PT WITH BOOSTING IN BED, WITH RN HELP, PT STILL WANTING MORE PUDDING, NO FURTHER NEEDS
--- NOTE | 2021-07-27 23:39 | NUR ---
PT CALLING, NEEDS HELP WIHT PILLOW, IN TO CHECK ON PT
--- NOTE | 2021-07-27 23:50 | NUR ---
awake, O2 1LNC, anxious, medicated with second dose of trazadone. was repositioned in bed earlier. f/c patent
--- NOTE | 2021-07-28 01:30 | NUR ---
RESTING, EYES CLOSED, O2 1LNC, IN PLACE, HOB ELEVATED, F/C PATENT, CALL LIGHT AND FLUIDS AT HANDS REACH. NO DISTRESS
--- NOTE | 2021-07-28 03:46 | NUR ---
pt used call light, wanted to be covered up, blankets were removed earlier on his requests. covers back on pt. o2 1lnc in place. much improved decreaed edema to penis and scrotum, and redness under apron. f/c patent
--- NOTE | 2021-07-28 04:54 | NUR ---
Pt on 1L NC, lungs dim at bases, occassional moist cough present. Received 2 does of Trazadone, partially effective, has slept off and on. more calm, compliant and following instructions. improved decreased edema penis and scrotum. no iv. helps with repositioning. tolerating thickened liquids well.
--- NOTE | 2021-07-28 07:52 | NUR ---
Patient resting in bed, eyes closed, respirations even and non labored. Patient remains on 1L oxygen per nc. Call light within reach.
--- NOTE | 2021-07-28 08:13 | NUR ---
Tylenol 500mg po admin for reports of generalized pain.
--- NOTE | 2021-07-28 10:06 | NUR ---
Patient up to chair, 2PA-pivot transfer with fww, tolerated fair.
--- NOTE | 2021-07-28 10:41 | NUR ---
Lewis catheter removed per provider order. Catheter tip intact. Patient tolerated well. Pt now due to void.
--- NOTE | 2021-07-28 15:19 | NUR ---
Tylenol 500mg po admin for reports of 5/10 generalized pain.
--- NOTE | 2021-07-28 16:27 | NUR ---
Large incontinent void. Haley care done at this time.
--- NOTE | 2021-07-28 18:55 | NUR ---
PT REQUESTING WATKINS BE REPLACED. ATTEMPTED TO LET PT VOID. PT UNSUCCESSFUL. BLADDER SCAN COMPLETED. 322MLS IN BLADDER.
--- NOTE | 2021-07-28 21:01 | NUR ---
pt up in chair, declines to go back to bed, legs elevated, much improved decreaed edema of le and scrotal area. was on 2L NC, weaned down to 0.5L after 20-30 minutes continues to be on 96%, denies sob, voided small amount of yellow urine using urinal. f/c was dc'd this am. pt calm redirectable, continues to call very frequent. reasured, efforts praised, cont to encourage self care, explain all procedures prior to. much improved affect and gait coordination. tolerating thickened liquids and pudings. no emesis. call ligth at hands reach
--- NOTE | 2021-07-28 21:13 | NUR ---
pt used call light, bathroom door closed on requests, in chair, legs elevated, O2 0.5L, spot check O2 sat 94%
--- NOTE | 2021-07-28 22:00 | NUR ---
THIS LINK TRAINER OPERATOR AND FIRE FIGHTER AIRPORT MAKENZIE HELPED PATIENT GET TO BED FROM CHAIR USING WALKER. CALL LIGHT AND SIDE TABLE WITHIN REACH.
--- NOTE | 2021-07-28 22:01 | NUR ---
PT WANTED TO GET BACK TO BED 2PA/FWW, TOLERATED WELL. CALL LIGHT AND FLUIDS AT BEDSIDE. O2 0.5LNC
--- NOTE | 2021-07-28 22:12 | NUR ---
PT USED CALL LIGHT, 'PLACE MY COVERS BACK ON'. COVERED, CALL LIGHT AND FLUFIS AT BEDSIDE, HOB ELEVATED
--- NOTE | 2021-07-28 22:21 | NUR ---
USED CALL LIGHT, C/O 'TOO MUCH COLD AIR BLOWING ON ME". LIGHT SHEET OVER PT
--- NOTE | 2021-07-28 23:35 | NUR ---
PATIENT CALLED MULTIPLE TIMES C/O COLD INSIDE HIS ROOM. ROOM THERMOSTAT IS IN 76. WARM BLANKET PROVIDED. PATIENT'S TEMP CHECKED IS 98.2 ORALLY. WARM PACK PROVIDED. PATIENT THANKFUL FOR THE WARM PACK.
--- NOTE | 2021-07-29 00:08 | NUR ---
PATIENT CALLED ASKING FOR ANOTHER WARM PACK. EMPTIED URINAL 125 ML. NO OTHER NEEDS AT THIS TIME.
--- NOTE | 2021-07-29 00:18 | NUR ---
USED CALL LIGHT, "MY HAT IS OVER THERE, CAN YOU GET IT FOR ME?". ITEMS GIVEN TO HIM. TRAZADONE GIVEN EARLIER, NO TEFFECTIVE, WIDE AWAKE, WATCHING TV, NOT DROWSY AT ALL. CALL LIGHT AND FLUIFS AT BEDSIDE
--- NOTE | 2021-07-29 00:59 | NUR ---
PT USED CALL LIGHT "I DO NOT KNOW HOW MY WARM PAD ENDED THERE" POINTING TO WARM PAD THAT WAS ALL THE WAY BY THE COUCH. PT PROBABLY TOSSED THERE. WHEN ASKED STATED "I DO NOT KNOW HOW IT GOT THERE", IRRITABLE MOOD. NEW WARM PAD GIVEN. VOIDED ANOTHER SMALL AMONT URINE USING URINAL. CALL LIGHT AND FLUIDS AT HANDS REACH
--- NOTE | 2021-07-29 01:33 | NUR ---
pt used call light, "my remote control fall and my oxygen tubing fell off". remote control by chair, and o2 off by chair too. pt denies throwing or taking them off. O2 sats 91% on room air, O2 off, will do prn spot checks
--- NOTE | 2021-07-29 01:44 | NUR ---
PATIENT CALLED STATED "I NEED MY BREATHER". PER PRIMARY RN, CHECK THE O2 SAT FIRST. IF IT IS IN 90 ABOVE, PATIENT DOES NOT NEED O2. IT WAS 92.
--- NOTE | 2021-07-29 01:48 | NUR ---
used call light, "I needd my breather, I feel better with it". spot check O2 sats 93%, not receptive to information being given
--- NOTE | 2021-07-29 04:39 | NUR ---
awake, watching tv, trazadone has not been effective this shift. pt used call light, Up to bsc 2pa/FWW had an extra large soft bm. , back to bed. tolerated well, spot checks done 95% on room air prior to getting up and 93% on return. pt helped self in to bed.
--- NOTE | 2021-07-29 04:40 | NUR ---
used call light, "I need to pee", urinal given, pt did own care, voided QS tolerated well
--- NOTE | 2021-07-29 04:50 | NUR ---
used call light, bryson given on request
--- NOTE | 2021-07-29 05:20 | NUR ---
USED CALL LIGHT, HOB ELEVATED TO COMFORT, PT INSTRUCTED AGAIN ON BED CONTROLS GETS UPSET, REASSURED, EFFORTS PRAISED, AND HE DID HANDS ON BED CONTROL
--- NOTE | 2021-07-29 05:46 | NUR ---
pt received trazadone scheduled, not effective, has not slept at all this shift. Pt on room air at this time with O2 sats WNL, did not decreased when up to BSC 2pa/fww. Lungs dim at bases, moist cough occassional after po fluids. on thickened liquids, aspiration precautions in place. tolering po fluids. had an extra large soft bm. has used urinal, voiding small amounts but QS. much improved edema to scrotum, penile area and LE. dry skin LE no changes. Forgetful, continues to use call light multiple times, gets upset when instructed to fo more self care. Continue to encourage self care. helps with repositioning. easily redirectable
--- NOTE | 2021-07-29 06:10 | NUR ---
USED CALL LIGHT, PILLOWS REPOSITIONED TO COMOFRT, INSTRUCTED ON SELF CARE, NOT VERY RECEPTIVE. REASSURED, CALL MARION AND EVY AT BEDSIDE
--- NOTE | 2021-07-29 07:10 | NUR ---
RECJenny. REPORT FROM NIGHT RN, ASSUMED CARE OF PT. AND PT. IS CALLING OUT ON HIS CALL SHILA, ASSISTED WITH THE PTS. NEEDS
--- NOTE | 2021-07-29 09:50 | NUR ---
PT. OOB IN CHAIR COOPERATIVE WITH STAFF, GOOD APPETITE, ADEQUATE FLUIDS, ON ROOM AIR, SATS WNL, NO SOB NOTED.
--- NOTE | 2021-07-29 12:47 | NUR ---
A LITTLE BEFORE NOON THE PHYSICAL THERAPY AND I GOT PATIENT UP TO HIS CHAIR. CHANGED HIS BED LINENS. PATIENT HAS BEEN USING HIS URINAL. PATIENT SCOOTED HIMSELF BACK IN HIS CHAIR.
--- NOTE | 2021-07-29 14:30 | NUR ---
PT. COOPERATIVE WITH STAFF TODAY AND CALLED FOR NEEDS, WORKED WITH THERAPY TODAY, REMAINS ON RA, TOLERATING WELL. OOB TO CHAIR FOR ALL MEALS AND A GOOD PART OF THE DAY. POSSIBLE DC TOMORROW [facility]. PT. PLEASANT WITH STAFF TODAY. NO IV ACCESS. MEDICALLY STABLE.
--- NOTE | 2021-07-29 19:30 | NUR ---
Report received from day shift RN. Call light within reach. Will cont to monitor.
--- NOTE | 2021-07-29 22:06 | NUR ---
THIS OPERATOR WEAPON LOCATING RADAR AND ART GALLERY INTERNSHIP MAKENZIE HELPED PATIENT GET TO BED FROM CHAIR USING WALKER. CALL LIGHT AND SIDE TABLE WITHIN REACH. TV REMOTE IN HAND.
--- NOTE | 2021-07-30 01:39 | NUR ---
PT IS RESTING IN BED AT THIS TIME AND APPEARS COMFORTABLE. VERBALIZES NEEDS APPROPRIATELY; CALL LIGHT WITHIN REACH. WILL CONT TO MONITOR.
--- NOTE | 2021-07-30 07:32 | NUR ---
SHIFT REPORT GIVEN TO THIS RN BY MISA Raman. PATIENT RESTING QUIETLY IN SEMI-FOWLERS POSITION, EYES CLOSED, RESPIRATIONS ARE REGULAR AND EVEN ON 1L/NC, CALL LIGHT IN REACH. PATIENT HAS NO NURSING CARE NEEDS AT THIS TIME.
--- NOTE | 2021-07-30 08:47 | NUR ---
PATIENT IRRITABLE THAT THIS RN WOKE HIM UP. BREAKFAST IS HERE, BUT PATIENT DOES NOT WANT TO EAT. SPEACH THERAPY HERE AND GOT PATIENT TO DRINK A LITTLE THICK LIQUIDS AND A FEW BITES OF FOOD. PATIENT TOOK AM MEDS AND WANTS STAFF TO LEAVE THE ROOM SO HE CAN SLEEP. AM ASSESSMENT COMPLETE. CALL LIGHT IN REACH. WATER GLASS REFRESHED WITH THICKEND WATER AND URINAL EMPTIED. AUTOMATIC WASHER MECHANIC DOING VS AND I+O.
--- NOTE | 2021-07-30 10:24 | NUR ---
SPOKE WITH YU AT [facility], AT THIS TIME PATIENT HAS BEEN DECLINED. YU DOES NOT FEEL THAT THE PATIENT WITH DO WELL WITH A COMBINED ROOM. WILL CONTINUE TO WORK ON PLACEMENT.
--- NOTE | 2021-07-30 10:37 | NUR ---
THIS RN ROUNDING ON PATIENT. PATIENT DOES NOT WANT TO GET UP AND DOES NOT WANT TO BE DISTURBED AND HE WANTS TO SLEEP. THIS RN VERBALIZED UNDERSTANDING. CALL LIGHT IN REACH. NO PATIENT CARE NEEDS AT THIS TIME.
--- NOTE | 2021-07-30 11:11 | NUR ---
LM FOR [facility] REGARDING UPDATE FOR PATIENT MEDICAID COVERAGE. ADVISED THAT PATIENT HAS BEEN DECLINED BY [facility]. AT THIS TIME I AM ATTEMPTING TO PLACE THE PATIENT IN A SNF ([facility] TO REVIEW CHART). WILL ATTEMPT TO HELP PATIENT OBTAIN BANK STATEMENTS TODAY IF ABLE.
--- NOTE | 2021-07-30 11:13 | NUR ---
PER GINA AT [facility] THEY DO [place] AT THIS [place]. CHART UPDATED AND FAXED TO [facility] FOR REVIEW.
--- NOTE | 2021-07-30 11:25 | NUR ---
THIS RN HELPED DAT PT GETTING PATIENT UP TO THE BEDSIDE ARMCHAIR. GAIT BELT, FWW, 1PA TO GET UP. PATIENT LEFT LEG DRESSING AND RIGHT HIP/BUTTOCK DRESSINGS C/D/I. PATIENT'S CALL LIGHT IS IN REACH AND PATIENT REMAINS ON RA. PATIENT DENIES ANY OTHER CARE NEEDS AT THIS TIME. WARM BLANKET GIVEN FOR PATIENT'S LAP. PT CONTINUES TO WORK WITH PATIENT.
--- NOTE | 2021-07-30 13:10 | NUR ---
THIS RN IN WITH CONCEPCIÓN GARCIA. PATIENT CALLED TO GO BACK TO BED FROM BEDSIDE ARMCHAIR. PATIENT BACK TO BED WITH 1PA WITH GAIT BELT AND FWW. PATIENT BEING SITUATED IN ROOM BY CONCEPCIÓN GARCIA. PATIENT HAD NO CARE NEEDS FROM THIS RN AT THIS TIME. CALL LIGHT IN REACH.
--- NOTE | 2021-07-30 14:01 | NUR ---
PATIENT SITTING UP IN BED WATCHING TV. VITALS AND I&O'S CHARTED. CALL LIGHT IN REACH. NO FURTHER NEEDS AT THIS TIME.
--- NOTE | 2021-07-30 15:13 | NUR ---
THIS RN IN ROOM AND EMPTIED URINAL AND DID AFTERNOON ASSESSMENT. PATIENT REMAINS ON ROOM AIR. PATIENT REQUESTED A SNACK AND 2 LOW CALORIE PUDDINGS GIVEN. PATIENT HAPPY TO GET THESE AND IN BETTER SPIRITS THIS AFTERNOON. CALL LIGHT IN REACH AND NO OTHER NURSE CARE NEEDS AT THIS TIME.
--- NOTE | 2021-07-30 16:18 | NUR ---
THIS RN IN TO EMPTY PATIENT'S URINAL AGAIN. EVENING MEDS GIVEN. PATIENT WATCHING TV AND DENIES ANY OTHER CARE NEEDS AT THIS TIME. CALL LIGHT IN REACH.
--- NOTE | 2021-07-30 17:21 | NUR ---
PATIENT SITTING UP IN BED WATCHING TV. VITALS AND I&O'S CHARTED. CALL LIGHT IN REACH. NO FURTHER NEEDS AT THIS TIME.
--- NOTE | 2021-07-30 17:27 | NUR ---
PATIENT NOT IRRITABLE THIS EVENING HE WAS IN THE AM. PATIENT HAS REMAINED ON RA ALL DAY WITH SATS IN THE 90'S. PATIENT WAS UP IN THE CHAIR BEFORE LUNCH AND GOT BACK INTO BED SOME TIME AFTER LUNCH. PATIENT'S STRENGTH HAS GOTTEN MUCH BETTER AND NOW 1PA WITH GAAIT BELT AND FWW UP TO THE CHAIR AND BACK TO BED PIVOTING. LUNGS HAVE HAD CRACLES AND WHEEZES THROUGHOUT THE DAY. PATIENT REMAINS TO HAVE NO IV. PATIENT ATE A POOR BREAKFAST, BUT OTHERWISE IS EATING WELL. PATIENT IS AWAITING PLACEMENT AND PER DDC PLANNING HE MAY GET TO GO TO [facility] OR [facility]. VS ARE STABLE. PATIENT VOIDING QS PER URINAL. PATIENT TAKING PO MEDS WELL AND HAS NO CURRENT CARE NEEDS AT THIS TIME AND IS EATING HIS DINNER AND WATCHING TV. CALL LIGHT IN REACH.
--- NOTE | 2021-07-30 19:30 | NUR ---
SHIFT REPORT GIVEN BY THIS RN TO MISA FARR. PATIENT RESTING QUIETLY IN BED WATCHING TV. CALL LIGHT IN REACH.
--- NOTE | 2021-07-30 19:45 | NUR ---
CALL LIGHT ON. pt REPORTS "I'M NOT GETTING ANY AIR" GESTURING TO NASAL CANNULA IN NARES. O2 SAT MID 90'S ON ROOM AIR. OXYGEN FLOW METER AT 0L. pt LOUDLY STATED "WHY ARE YOU FUCKING WITH ME, JUST GIVE ME AIR RIGHT NOW!" EDUCATION DONE. pt CONTINUED TO YELL AT THIS RN. PLACED pt ON 3L MEDICAL AIR FOR COMFORT. O2 SAT REMAINS MID 90'S. RESPIRATIONS REGULAR AND UNLABORED. RATE = 18. pt ABLE TO SPEAK IN COMPLETE SENTENCES WITHOUT ISSUE. pt EDUCATED AGAIN. pt SHOUTED "JUST LEAVE ME THE FUCK ALONE! DON'T TURN OFF THE AIR!" pt REPORTED RESPIRATORY STATUS MUCH IMPROVED WITH AIR. PRIMARY RN UPDATED. CALL LIGHT WITHIN REACH.
--- NOTE | 2021-07-30 21:19 | NUR ---
CALL LIGHT ON. pt REQUESTED BATHROOM DOOR BE CLOSED, DONE. NO FURTHER REQUESTS AT THIS TIME.
--- NOTE | 2021-07-30 22:03 | NUR ---
CALL LIGHT ON. pt REQUESTED "A PAIR OF SWEATPANTS I CAN BORROW SO I CAN GO HOME" WHEN ASKED WHERE HOME WAS HE STATED "I HAVE $4000, I CAN GET A TAXI AND STAY AT A HOTEL." pt REPORTED HE WAS CRAVING A CIGARETTE. PROVIDED NICOTINE GUM. pt VERY AGREEABLE TO GUM. pt STATED "I JUST NEED TO START TAKING CARE OF MYSELF. I ALWAYS CARE FOR MYSELF AND OTHERS, IT'S JUST WHO I AM." TALKED ABOUT AIR THAT THE pt IS RECEIVING THROUGH THE NASAL CANNULA AND pt STATED "I JUST GET PANICKED SOMETIMES" pt REFUSED TO TAKE CANNULA OFF AT THIS TIME. STATES HIS BEHAVIOR EARLIER WAS BECAUSE "I'VE JUST BEEN HERE TOO LONG AND I NEED A CIGARETTE" pt RESTING IN BED. CALL LIGHT WITHIN REACH. MEDICAL AIR REMAINS AT 3L PER pt REQUEST.
--- NOTE | 2021-07-30 22:15 | NUR ---
Report received from day shift RN. Pt is awake in bed with his eyes open. Denies pain. Verbalizes needs appropriately; call light within reach. Compliant with cares, medication administration and assessment. VSS. Will cont to monitor.
--- NOTE | 2021-07-31 00:31 | NUR ---
Pt is resting in room , watching tv. Pleasant mood. Verbalizes needs appropriately; call light within reach. VSS. Using urinal at bedside. Denies pain/discomfort. Will cont to monitor.
--- NOTE | 2021-07-31 02:16 | NUR ---
Pt is awake in bed, watching tv. C/O lower back pain- repositioned in bed and prn medication administered as ordered. Compliant with cares and medication administration. Verbalizes needs appropriately; call light within reach. VSS. Will cont to monitor.
--- NOTE | 2021-07-31 03:39 | NUR ---
CALL LIGHT ANSWERED. URINAL EMPTIED. CHUX DRY UNDER pt. REPOSITIONING ENCOURAGED, pt REFUSES AT THIS TIME. CALL LIGHT IN REACH. LIGHTS OFF IN ROOM.
--- NOTE | 2021-07-31 05:39 | NUR ---
Pt is alert and pleasant. Verbalizes needs appropriately. Call light within reach. Pt received prn tylenol for lower back pain this morning per pt request. Repositioned in bed. Using urinal at bedside. Will cont to monitor.
--- NOTE | 2021-07-31 05:40 | NUR ---
PATIENT CALLED WANTING HELP WITH HIS LEG ITCHING. THIS COLLECTION CARD CLERK AND MISA LOPEZ APPLIED BARRIER CREAM. MODERATELY THICK WATER REFILLED.
--- NOTE | 2021-07-31 07:30 | NUR ---
SHIFT REPORT RECEIVED BY THIS RN FROM MISA FARR. PATIENT RESTING QUIETLY ON RA, EYES CLOSED, RESPIRATIONS ARE REGULAR AND EVEN, CALL LIGHT IN REACH, IN SEMI-FOWLERS POSITION.
--- NOTE | 2021-07-31 08:36 | NUR ---
AM MEDS PASSED BY ALYSSARN. THIS RN ORIENTING. PATIENT REFUSED TO GET OUT OF BED FOR BREAKFAST. DESENEX APPLIED TO GROIN FOLDS. CALL LIGHT IN REACH. ST IN ROOM TALKING WITH PATIENT AT THIS TIME. URINAL EMPTIED. NO OTHER NURSE CARE NEEDS AT THIS TIME.
--- NOTE | 2021-07-31 10:09 | NUR ---
PATIENT IN BED RESTING WITH EYES CLOSED. VITALS AND I&O'S CHARTED. PATIENT GOT IRRITATED WHEN ASKED ABOUT SHOWER AND SAID "ABSOLUTLEY NOT." CALL LIGHT IN REACH. NO FURTHER NEEDS AT THIS TIME.
--- NOTE | 2021-07-31 10:41 | NUR ---
PT IN ROOM GETTING PATIENT UP TO THE BEDSIDE ARMCHAIR. DRESSING TO RIGHT HIP/BUTTOCK AND BACK OF LEFT THIGH C/D/I. PATIENT REFUSING TO TAKE A SHOWER AT THIS TIME.
--- NOTE | 2021-07-31 14:17 | NUR ---
PATIENT SITTING UP IN CHAIR WATCHING TV. VITALS AND I&O'S CHARTED. PATIENT REFUSED SHOWER AGAIN. CATH CARE DONE. CALL LIGHT IN REACH. NO FURTHER NEEDS AT THIS TIME.
--- NOTE | 2021-07-31 15:00 | NUR ---
To pts room at , Breanne Moise request. She is helping pt access his account at [employer] where is SS is deposited. We then called [facility] and requested bank statements. They will fax as pt gave permission and new code word for his account.
--- NOTE | 2021-07-31 15:10 | NUR ---
Received a call from Vaishali Chisholm from [facility]. She is requesting chart notes, H&P, and therapy notes prior to her visit to evaluate pt for group home medicaid. Chart copied and faxed as pt gave permission to Shea Hernandez for process to start group home medicaid.
--- NOTE | 2021-07-31 16:50 | NUR ---
PATIENT FINALLY AGREED TO SHOWER. PATIENT TRANSFERED TO SHOWER CHAIR, 2PA FWW PIVOT. PATIENT ASSISTED IN SHOWER. ROMEO CARE, SKIN CARE, SHAMPOO DONE. NEW GOWN PROVIDED. LINENS CHANGED. PATIENT WHEELED TO NEW ROOM AT THIS TIME. TRANSFERED TO BED, 2PA FWW PIVOT. PATIENT USED TRAPEZE TO PULL HIMSELF UP IN BED AND DID WELL. CALL LIGHT IN REACH. NO FURTHER NEEDS AT THIS TIME.
--- NOTE | 2021-07-31 17:06 | NUR ---
PATIENT'S PM MEDS HAVE BEEN PASSED AND PATIENT SHOWERED ON BATH CHAIR AND MOVED TO ROOM #124. PATIENT DENIES PAIN AND TOLERATED THE SHOWER AND MOVE WELL. PATIENT 2PA WITH FWW. PM ASSESSMENT COMPLETE. PATIENT CALL LIGHT IN REACH AND HAS HIS TV REMOTE. ALL BELONGINGS MOVED TO NEW ROOM. CONCEPCIÓN FUNG STILL SITUATING PATIENT IN HIS ROOM.
--- NOTE | 2021-07-31 18:28 | NUR ---
PATIENT SITTING UP IN BED WATCHING TV. VITALS AND I&O'S CHARTED. CALL LIGHT IN REACH. NO FURTHER NEEDS AT THIS TIME.
--- NOTE | 2021-07-31 19:30 | NUR ---
RECEIVED REPORT FROM DAY SHIFT RN , PT RESTING IN BED IN NO ACUTE DISTRESS. PT RESP EVEN AND UNLABORED. DENIES ANY CONCERNS AT THIS TIME. PER REPORT DRESSING TO ULCERS WERE CHANGES POST SHOWER. CALL LIGHT WITHIN REACH WILL CONTINUE TO MONITOR.
--- NOTE | 2021-07-31 21:44 | NUR ---
PT CALLED REQUESTING TO GET UP TO USE BSC TO HAVE BM. PT UNSTEADY REQUIRING 2 ASSIST. PT HAD XLARGE FORMED BM. REPORTS FEELING MUCH BETTER ASSISTED BACK TO BED, CALL LIGHT WITHIN REACH WILL CONTINUE TO MONITOR.
--- NOTE | 2021-07-31 23:47 | NUR ---
PT ASKING FOR PAIN MEDS DT LOWER BACK PAIN . PRN TYLENOL PROVIDED PT REPORTS A PAIN 5 TO CHRONIC BACK PAIN. WILL CONTINUE TO MONITOR .
--- NOTE | 2021-08-01 02:49 | NUR ---
PT SLEEPING IN BED IN NO ACUTE DISTRESS. PT RESP EVEN AND UNLABORED. CALL LIGHT WITHIN REACH WILL CONTINUE TO MONITOR.
--- NOTE | 2021-08-01 04:53 | NUR ---
PT CALLED ASKING TO HAVE URINAL EMPTIED OUT. VSS, RESP EVEN ADN UNLABORED. DENIES ANY CONCERNS AT THIS TIME. CALL LIGHT WITHIN REACH WILL CONTINUE TO MONITOR.
--- NOTE | 2021-08-01 07:30 | NUR ---
ALYSSA RN WORKING WITH THIS RN TODAY. MISA SHAH CHARTED AM ASSESSMENT AND MEDS. PATIENT HAS NO CARE NEEDS FROM THIS RN AT THIS TIME. CALL LIGHT IS IN REACH.
--- NOTE | 2021-08-01 07:30 | NUR ---
PATIENT ALERT AND ORIENTED/FORGETFUL. RESTINGIN COMFORTABLY IN BED. RESPIRATIONS REGULAR. ASSESSMENT COMPLETED, DRESSSINGS CDI, MORNING MEDICATIONS GIVEN.
--- NOTE | 2021-08-01 08:40 | NUR ---
RT COLLECTED RAPID COVID 19 SWAB WITH NO COMPLICATIONS AT THIS TIME.
--- NOTE | 2021-08-01 08:48 | NUR ---
PT REFUSED TO GET UP TO CHAIR FOR MEAL. PT PULLED SELF UP IN BED, SET UP FOR MEAL
--- NOTE | 2021-08-01 09:29 | NUR ---
PATIENT CURRENTLY RESTING IN HIGH FOWLERS POSITION IN BED. PATIENT'S EYES ARE CLOSED, RESPIRATIONS ARE REGULAR AND EVEN, AND CALL LIGHT IS IN REACH. PATIENT HAS NO CARE NEEDS FROM THIS RN AT THIS TIME.
--- NOTE | 2021-08-01 09:54 | NUR ---
PT REQUESTED TO HOLD OFF ON ST TODAY D/T FATIGUE. PT DID REPORT THAT HE'S FEELING THOUGH HIS CURRENT DIET OF MINCED MOIST IS EASIER TO EAT.
--- NOTE | 2021-08-01 11:11 | NUR ---
CARLA DOCUMENTATION MANAGER IN TALKING CASE MANAGEMENT WITH PATIENT AT THIS TIME. PATIENT HAS NO CURRENT CARE NEEDS FROM THIS RN AT THIS TIME. CALL LIGHT IS IN REACH.
--- NOTE | 2021-08-01 12:17 | NUR ---
PT HAS GOT PATIENT UP TO THE BEDSIDE ARMCHAIR AFTER A VERY LONG CONVERSATION WITH THIS RN ABOUT THE PATIENT'S NEED TO GET OUT OF BED AND MOVE. PATIENT FINALLY AGREED AND GOT UP. PATIENT IS EATING HIS LUNCH. CALL LIGHT IN REACH. PATIENT HAS NO OTHER CARE NEEDS AT THIS TIME.
--- NOTE | 2021-08-01 14:47 | NUR ---
THIS RN INFORMED PATIENT HAD CALLED AND SAID HE WAS SHORT OF BREATH. CHARGE NURSE AND OTHER STAFF HAD ALREAD RESPONDED AND PATIENT IS CURRENTLY TALKING IN COMPLETE SENTENCES AND SAYS, "I FELL TO HOT." PATINT IS AFEBRILE AND O2 SATS 95-97% ON ROOM AIR. PATIENT'S THERMOSTAT WAS SET HIGH SO TEMP IN ROOM TURNED DOWN. PATIENT'S LUNG SOUNDS ARE A LITTLE WHEEZY, BUT NOT ANY DIFFERENT THAN THE LAST 2 DAYS. PATIENT'S RESPS ARE REGULAR AND EVEN AT 22BPM. CALL LIGHT IN REACH. CASE MANAGEMENT VISITING WITH PATIENT.
--- NOTE | 2021-08-01 15:47 | NUR ---
PATIENT RESTING IN BED WATCHING TV AND DENIES AANY CARE NEEDS AT THIS TIME. PATIENT JUST WANTS TO BE LEFT ALONE AND NOT BOTHERED. CALL LIGHT IN REACH. NO CARE NEEDS FROM THIS RN AT THIS TIME.
--- NOTE | 2021-08-01 16:00 | NUR ---
Spoke with Jared. He wants to go home, is aware he is unable to transfer without assist. I did not receive the bank statements from [employer], called and left a message with Tri at their office asking them to send statements as requested.
--- NOTE | 2021-08-01 16:31 | NUR ---
THIS RN IN TO GIVE 1700 MEDS. PATIENT DENIES ANY CARE NEEDS AND IS A LITTLE CHEERFUL ACTUALLY BECAUSE [employer] SAID HE MAY BE ABLE TO GET OUT OF HER SOON. CALL LIGHT IN REACH AND PATIENT WATCHING TV.
--- NOTE | 2021-08-01 17:39 | NUR ---
PATIENT RESTING COMFORTABLY IN BED, JUST FINISHING MEAL. HAS NO COMPLAINTS ATT. RESPIRATIONS REGULAR WITH NO SOB.
--- NOTE | 2021-08-01 19:20 | NUR ---
SHIFT REPORT RECEIVED FROM DAYSHIFT MISA ANSARI AT BEDSIDE. pt AWAKE AND RESTING IN BED, ON RA. RR EVEN AND UNLABORED. NO DISTRESS NOTED, CALL LIGHT IN REACH.
--- NOTE | 2021-08-01 19:56 | NUR ---
PHONE CALL FROM pt'S SISTER, PER pt OKAY TO TRANSFER CALL TO ROOM AND GIVE HER INFORMATION. PHONE CALL TRANSFERRED, PHONE HANDED TO pt.
--- NOTE | 2021-08-01 21:06 | NUR ---
VITALS COMPLETE WITH FLIGHT ATTENDANT RAMP. PT REQUESTED PAIN MEDICATION FOR HIS BOTTOM HURTING. EDUCATED ABOUT LAYING ON HIS SIDE, GETTING THE PRESSURE OFF HIS BOTTOM, WHICH HE SAID DON'T GIVE ME THAT, THATS WHY I DON'T ASK FOR PAIN MEDS. REASSURED PT THAT HE WAS GETTING PAIN MEDICATIONS, ONCE THIS RN TALKS WITH HIS PRIMARY RN. WHEN MEDICATION BROUGHT TO ROOM, PT SAID I NEED PAIN MEDICATION. HE HAD FORGOTTEN HE ASKED FOR PAIN MEDS. ALL PERSONAL SUPPLIES WITHIN REACH. NO OTHER NEEDS AT THIS TIME.
--- NOTE | 2021-08-01 21:30 | NUR ---
pt RESTING IN BED, EYES OPEN AND WATCHING TV. NO DISTRESS OR CONCERNS NOTED AT THIS TIME. CALL LIGHT IN REACH.
--- NOTE | 2021-08-01 22:04 | NUR ---
CALL LIGHT ANSWERED. ASSISTED pt TO UNTANGLE GOWN FROM UNDERNEATH HIM. URINAL EMPTIED. NO ADDITIONAL REQUESTS. CALL LIGHT AND PERSONAL SUPPLIES IN REACH.
--- NOTE | 2021-08-01 22:30 | NUR ---
ASSESSMENT COMPLETE, WOUND CARE PER MD ORDERS. RAMONITA X2 C/D/I, pt WILLING TO TURN TO ALLOW THIS RN TO BRIEFLY ASSESS SITES, BUT pt BECOMES ANGRY WHEN EDUCATED ON IMPORTANCE OF CHANGING POSITIONS IN BED, pt STATES, "NO! I DON'T WANT TO". pt VERBALLLY EDUCATED ON PREVENTION OF SKIN BREAKDOWN/WOUND CARE/ECT,BUT pt CONTINUES TO REFUSE TO CAHNGE POSITIONS AT THIS TIME, WILL ENCOURAGE AND MONITOR. NO FURTHER NEEDS, CALL LIGHT IN REACH.
--- NOTE | 2021-08-01 23:00 | NUR ---
PATIENT ASKED VANILLA PUDDING TWICE. PROVIDED.
--- NOTE | 2021-08-02 00:17 | NUR ---
PATIENT CALLED NEEDING HELP. PATIENT SHOWED THE VOMITUS IN THE BUCKET SOME CLEAR LIQUID WITH WHITES STUFF. PATIENT STATED "I PUKE ONCE IN A WHILE LIKE THIS ONE I DONT KNOW WHY BUT I FEEL BETTER NOW". PATIENT DENIES ANY CARE NEEDS AT THIS TIME.
--- NOTE | 2021-08-02 01:17 | NUR ---
ROUNDED ON pt, ASSITED WITH BED POSITION. NO ADDITIONAL NEEDS OR CONCERNS. CALL LIGHT IN REACH.
--- NOTE | 2021-08-02 01:20 | NUR ---
CALL LIGHT ANSWERED. pt STATES "I WAS FEELING SICKISH, BUT I'M BETTER NOW". DENIES NEEDS. CURTAIN OPEN PER pt REQUEST. CALL LIGHT IN REACH.
--- NOTE | 2021-08-02 01:41 | NUR ---
CALL LIGHT ANSWERED, pt REQUIRES HELP FINDING REMOTE. ASSISTANCE PROVIDED. pt EDUCATED AGAIN ON NEED TO REPOSTION, pt INITAILY REFUSES BUT THEN AGREES TO HAVING PILLOW UNDER RIGHT SIDE. SOFTWARE QUALITY MANAGERMISA SALAS ALSO IN ROOM. CALL LIGHT IN REACH AND WILL MONITOR FOR CHANGES.
--- NOTE | 2021-08-02 03:00 | NUR ---
FRESH WATER THICKENED PER DIET ORDER PROVIDED, CALL LIGHT IN REACH.
--- NOTE | 2021-08-02 04:28 | NUR ---
pt RESTING IN BED, EYES CLOSED. ON RA, RR EVEN AND UNLABORED. NO DISTRESS NOTED, CALL LIGHT AND OTHER BELONGINGS IN REACH.
--- NOTE | 2021-08-02 06:02 | NUR ---
ASSESSMENT COMPLETE, NO ACUTE CHANGES. SPO2 UPPER 80'S TO 90% ON RA, pt PLACED ON 1LNC WHILE SLEEPING. pt REPORTS 5/10 PAIN, PRN TYLENOL GIVEN (SEE EMAR). pt AGAIN REFUSES TO INITIALLY REPOSITION, STATING ANGRILY, "NO, I DON'T WANT TO. I WANT TO STAY RIGHT HERE". pt EDUCATED ON SKIN BREAKDOWN PREVENTION, AGREES TO PILLOW UNDER RIGHT HIP. ALLEVYN DRESSINGS C/D/I, CALL LIGHT IN REACH. URINAL ALSO EMPTIED.
--- NOTE | 2021-08-02 07:10 | NUR ---
REPORT RECEIVED FROM NIGHT RN DONA - PT RESTING IN BED WITH EYES CLOSED, RR EVEN AND UNLABORED. CALL LIGHT IN REACH. BED ALARM ON.
--- NOTE | 2021-08-02 09:01 | NUR ---
RN IN ROOM TO ADMINISTER SCHEDULED MEDICATIONS. PT AWAKE WATCHING TV UPON ENTERING ROOM. PT DENIES PAIN AT THIS TIME. HE DOES HOWEVER REFUSE TO GET UP TO CHAIR FOR BREAKFAST. PT TOLERATED PO MEDS WITHOUT DIFFICULTY SWALLOWING. PT USING URINAL AT BEDSIDE APPROPRIATLY. CALL LIGHT IN REACH. PT DENIES FURTHER NEEDS.
--- NOTE | 2021-08-02 10:44 | NUR ---
RN IN ROOM TO ASSESS PT - PT FINISHING SESSION WITH PT UPON ARRIVAL. PT UP TO CHAIR - ON ROOM AIR - SP02 93%. RN UNABLE TO ASSESS WOUNDS AND PERICARE D/T PT BEING UP IN CHAIR. PLAN WITH PT AND PIGMENT MAKING SUPERVISOR TO CLEAN AND APPLY NEW DRESSINGS UPON AMBULATION BACK TO BED. PT AGREES. OTHERWISE ASSESSMENT UNCHANGED FROM PREVIOUS SHIFT. CALL LIGHT IN REACH. PT DENIES FURTHER NEEDS.
--- NOTE | 2021-08-02 11:22 | NUR ---
BROUGHT PATIENT HIS ORANGE JUICE. PATIENT IS SLEEPING.
--- NOTE | 2021-08-02 11:47 | NUR ---
PT USES CALL LIGHT TO REQUEST TO GET BACK TO BED. RN IN ROOM TO ENCOURAGE PT TO STAY IN CHAIR FOR LUNCH WHICH IS BEING SERVED SHORTLY. PT AGREES TO THIS PLAN. CHAIR PLACED IN LEG DOWN POSISTION TO SHIFT WEIGHT OFF OF PT LOW BACK WHICH IS WHERE HE IS COMPLAINING OF PAIN. CALL LIGHT IN REACH.
--- NOTE | 2021-08-02 12:09 | NUR ---
Pt resting in bedside chair upon arrival; pt not agreeable to tx at this time, stating "I just want to sleep."
--- NOTE | 2021-08-02 13:00 | NUR ---
RN ROUNDING ON PT. PT UP IN CHAIR EATING LUNCH. CALL LIGHT IN REACH.
--- NOTE | 2021-08-02 14:23 | NUR ---
PT SITTING IN CHAIR WITH TV ON AND BLIND PULLED. HAD GOOD VISIT WITH PT-HE SAID HE IS READY TO CRAWL OUT. ACCORDING TO PT: "NOBODY EVER DOES WHAT THEY SAY THEY ARE GOING TO DO. TIRED OF GOING FROM BED TO CHAIR IN AND BACK". DISCUSSED WITH MISA CARBONE AND HOUSEHOLD MANAGERMISA KIRAN TO GET PT IN AND HAVE HIM GO AROUND IN HALLWAY. PT AGREES TO COOPERATE, BUT DOESN'T BELIEVE IT WILL HAPPEN. GAVE ENCOURAGEMENT TO PT, BUT ALSO INFORMED HIM THAT WE CAN'T GUARANTEE A TIME THIS AFTERNOON. PT ACKNOWLEDGES UNDERSTANDING WILL FOLLOW
--- NOTE | 2021-08-02 16:05 | NUR ---
Attempted to contact Lauren Chisholm at [facility] to see if there is any progress with [employer], unable to reach. Spoke with Cj from [facility]. He does not remember getting a chart for this pt. Faxed face sheet, H&P, progress notes, med list, therapy notes to [facility].
--- NOTE | 2021-08-02 16:13 | NUR ---
GOT PT IN WC AND WALKED THROUGH HOSPITAL. PT WAS VERY HAPPY TO GET OUT OF ROOM. PT NOW IN BED WATCHING TV.
--- NOTE | 2021-08-02 21:27 | NUR ---
answered pt's call light states "i can't breathe, can you tell that guys who was in here earleir that I want a breathing treatment" checked pt's o2 sat 89-90%, placed on 1 liter o2 sats up to 94%. called RT.
--- NOTE | 2021-08-02 22:20 | NUR ---
IN TO GET VITALS, EMPTIED URINAL, NO FURTHER NEEDS AT THIS TIME
--- NOTE | 2021-08-03 04:17 | NUR ---
APPEARS ASLEEP. NO DISTRESS NOTED.
--- NOTE | 2021-08-03 08:36 | NUR ---
PT REFUSED TO GET OOB FOR MEAL. STATES HE WILL DO IT FOR LUNCH.
--- NOTE | 2021-08-03 09:50 | NUR ---
Pt threw up all of the breakfast. Not sure if he put fingers down his throat. [place] had moderate amount of partially digested eggs. Zofran ODT given with positive results.
--- NOTE | 2021-08-03 10:00 | NUR ---
Nausea resolved. Pt was transfered to recliner with the help of therapist. Pt requested Tylenol for b/l buttock soreness. Pt repositioned in recliner as well.
--- NOTE | 2021-08-03 11:00 | NUR ---
[facility]. R UPPER BUTTOCK DRESSING CHANGED SINCE IT WAS COMING OFF. TYLENOL GIVEN FOR B/L BUTTOCKS PAIN.
--- NOTE | 2021-08-03 12:00 | NUR ---
Pt tolerated lunch very well. [facility] is evaluating Pt and requested updated pictures of Pt's wounds.
--- NOTE | 2021-08-03 14:00 | NUR ---
Pt transfered back to bed. Pictures of Pt's wounds taken. All wounds cleansed as ordered and dressings replaced.
--- NOTE | 2021-08-03 14:18 | NUR ---
Dressings were changed per staff and new photos taken. Photos and nursing notes faxed to GONZALO at [facility].
--- NOTE | 2021-08-03 16:00 | NUR ---
Pt visited by [facility].
--- NOTE | 2021-08-03 16:00 | NUR ---
Received text from GONZALO at [place]. He would like to visit pt for eval. GONZALO visited pt and agrees to accept this pt on Friday. Dr. Tobias and charge nurse updated and will write orders. CAlled and scheduled transport per [facility]c van and they will use our wc and return it ay 10:30 on Friday.
--- NOTE | 2021-08-03 18:00 | NUR ---
Pt tolerated dinner fine, with no nausea. No c/o headache. Repositioned in bed. Dressings remain CDI.
--- NOTE | 2021-08-03 23:57 | NUR ---
pt alert and watching TV. Sleeping pill given. Has eaten some sylvia crackers. Stood up at side of bed and moved towards head of bed so that he is in a better position in the bed. Was up with 1 person assist.
--- NOTE | 2021-08-04 06:53 | NUR ---
PT HAD AN UNEVENTFUL NIGHT. USING CALL LIGHT APPROPRIATELY.
--- NOTE | 2021-08-04 07:30 | NUR ---
PATIENT SHIFT REPORT RECEIVED BY THIS RN. PATIENT RESTING QUIETLY IN HI-FOWLERS POSITION IN BED, EYES CLOSED, RESPIRATIONS ARE REGULAR AND EVEN, CALL LIGHT IS IN REACH, AND PATIENT HAS NO CURRENT CARE NEEDS AT THIS TIME.
--- NOTE | 2021-08-04 09:20 | NUR ---
PATIENT SITTING UP IN BED ON 3L/NC WATCHING TV. PATIENT DID NOT WANT TO GET OUT OF BED FOR BREAKFAST AND WILL GET UP TO THE BEDSIDE ARMCHAIR FOR LUNCH. URINAL EMPTIED AND PATIENT DENIES ANY OTHER CARE NEEDS AT THIS TIME. CALL LIGHT IN REACH.
--- NOTE | 2021-08-04 11:30 | NUR ---
PT HAS GOTTEN PATIENT UP TO THE BEDSIDE ARMCHAIR AND HE IS AWAITING FOR HIS LUNCH TO ARRIVE. PATIENT REMAINS ON 3L/NC AND DENIES BEING SOB. PATIENT ALSO DENIES PAIN AND NAUSEA. PATIENT DENIES ANY OTHER CARE NEEDS AT THIS TIME. CALL LIGHT IS IN REACH.
--- NOTE | 2021-08-04 13:25 | NUR ---
PATIENT STILL DENIES PAIN AND NAUSEA STILL AND URINAL EMPTIED. PATIENT HAS BEEN USING FWW TO STAND PIVOT TRANSFER TO BEDSIDE ARM AND BACK TO BED. PATIENT DENIES ANY OTHER CARE NEEDS AT THIS TIME AND REMAINS ON 3L/NC. CALL LIGHT IN REACH.
--- NOTE | 2021-08-04 15:40 | NUR ---
PATIENT RELAXING IN BED WATCHING TV. FISCAL ACCOUNTING CLERK'S HAVE BEEN IN AND OUT OF PATIENT'S ROOM. PATIENT HAS BEEN UP TO THE BEDSIDE COMMODE AND HAD A BM AND BACK TO BED. PATIENT DENIES SOB AND DENIES ANY CARE NEEDS. CALL LIGHT IN REACH.
[2021-08-04] MEDS ORDERED: NICOTINE1 EAC2 TD (15:48)
[2021-08-04] MEDS ORDERED: NICOTINE GUM2 MG MM (15:48)
[2021-08-04] MEDS ORDERED: IPRAT-ALBUT 0.5-3 ML INH (15:48)
[2021-08-04] MEDS ORDERED: ACETAMINOPHEN500 MG PO (15:48)
[2021-08-04] MEDS ORDERED: ONDANSETRON ODT4 MG SL (15:49)
[2021-08-04] MEDS ORDERED: TRAZODONE HCL100 MG PO (15:49)
[2021-08-04] MEDS ORDERED: CALCIUM CARBON200 MG PO (15:49)
[2021-08-04] MEDS ORDERED: MICONAZOLE5 GM MISC (15:51)
[2021-08-04] MEDS ORDERED: VITAMIN D21250 MCG PO (15:52)
[2021-08-04] MEDS ORDERED: VITAMIN B-121000 MCG PO (15:52)
[2021-08-04] MEDS ORDERED: THERA TABLET400 MCG PO (15:53)
--- NOTE | 2021-08-04 16:09 | NUR ---
EARLY EVENING MEDS GIVEN. PATIENT'S LUNG SOUNDS REMAIN UNCHANGED FROM THIS MORNING, DIM THOUGHOUT WITH SLIGHT EXPIRATORY WHEEZES IN THE BASES. URINAL EMPTIED. CALL LIGHT IN REACH AND PATIENT HAS NO OTHER CARE NEEDS AT THIS TIME.
--- NOTE | 2021-08-04 17:25 | NUR ---
PATIENT STILL WATCHING TV AND REMAINS ON 3L/NC. O2 SATS IN THE LOWER 90'S. PATIENT DENIES ANY NEEDS AT THIS TIME. CALL LIGHT IS IN REACH.
--- NOTE | 2021-08-04 19:15 | NUR ---
THIS RN HAS GIVEN SHIFT REPORT TO MISA HERNANDEZ COMING ON FOR MONTESSORI LEAD TEACHER. PATIENT RESTING IN BED WATCHING TV. REPSIRATIONS ARE REGULAR AND EVEN, CALL LIGHT IN REACH.
--- NOTE | 2021-08-04 19:20 | NUR ---
RECEIVED REPORT FROM ELAN BYNUM
--- NOTE | 2021-08-04 21:00 | NUR ---
patient states he does "not want to take his trazadone at this time" he states he "wants it closer to bedtime like 11 or 12?" pt informed i will bring it back to him later
--- NOTE | 2021-08-04 23:24 | NUR ---
PATIENT SITTING UP IN BED HE IS READY TO TAKE HIS TRAZADONE. PT GIVEN THIS. ALSO EMPTIED HIS URINAL. REFRESHED WATER CUP. PT DENIES PAIN OR NAUSEA OR ANY OTHER NEEDS AT THIS TIME. CALL LIGHT IN REACH.
--- NOTE | 2021-08-05 01:00 | NUR ---
CALL LIGHT ON, PT NEEDED HELP WITH PILLOW, CRACKERS PROVIDED
--- NOTE | 2021-08-05 03:12 | NUR ---
PT IS IN BED WITH HOB ELEVATED, TV ON. PT'S EYES CLOSED, RESPIRATIONS VISULAIZED. CALL LIGHT IN REACH.
--- NOTE | 2021-08-05 04:00 | NUR ---
PT NEEDING HELP WITH PILLOWS, URIANL EMPTIED, VS TAKEN, NO FURTHER NEEDS
--- NOTE | 2021-08-05 06:17 | NUR ---
ANSWERED CALL LIGHT PT REQUESTS PILLOWS BE ADJUSTED, COMPLIED WITH REQUEST. DENIES OTHER NEEDS
--- NOTE | 2021-08-05 06:36 | NUR ---
PT HAS BEEN VERY PLEASANT AND COOPERATIVE ALL SHIFT. DID NOT GET TO SLEEP UNTIL AFTER MIDNIGHT, HAS BEEN AWAKE OFF AND ON. HAS BEE ON 2 LITERS FOR O2 FOR COMFORT. HAS BEEN USING URINAL HIMSELF TO VOID.
--- NOTE | 2021-08-05 07:25 | NUR ---
THIS RN RECEIVED SHIFT REPORT FROM MISA HERNANDEZ. PATIENT RESTING QUIETLY IN BED ON 2L/NC, RESPIRATIONS ARE REGULAR AND EVEN, EYES ARE CLOSED, CALL LIGHT IN REACH, PATIENT HAS NO CARE NEEDS AT THIS TIME.
--- NOTE | 2021-08-05 07:50 | NUR ---
THIS RN IN TO SEE PATIENT. PATIENT WATCHING TV AND APPEARS TO BE IN A PLEASANT MOOD AT THIS TIME. LUNG DIM BILAT WITH EXPIRATORY WHEEZES IN THE BILAT BASES. AM MEDS GIVEN, URINAL EMPTIED, NEW THICKEND ICE WATER GIVEN, AND AM ASSESSMENT COMPLETE. PATIENT REMAINS ON 2L/NC AND DENIES BEING SOB. CALL LIGHT IN REACN AND 2 JELLOES GIVEN TO GET PATIENT THROUGH TO BREAKFAST. PATIENT HAS NO OTHER CARE NEEDS FROM THIS RN AT THIS TIME.
--- NOTE | 2021-08-05 09:58 | NUR ---
PATIENT SITTING IN THE BED WATCHING TV. BREAKFAST EATEN. NO FURTHER NEEDS AT THIS TIME. CALL LIGHT WITH IN REACH.
--- NOTE | 2021-08-05 11:35 | NUR ---
PT IN TO SEE PATIENT AND GETTING HIM UP IN THE BEDSIDE ARMCHAIR FOR LUNCH. PT SAYS THEY RECOMMEND 2 PERSON ASSIST WITH GAIT BELT AND WALKER PATIENT DOES NOT SEEM TO BE QUITE STRONG TODAY. PATIENT DENIED ANY CARE NEEDS FROM THIS RN AT THIS TIME. CALL LIGHT IN REACH.
--- NOTE | 2021-08-05 13:30 | NUR ---
patient sitting in chair. requested to go to the bed. I told him I needed to wait till the nurse came so he could look at his wounds, and have a second person. The patient refused and stated he wanted to go to bed now and he would do it on his own if I did not help. This HEALTHCARE ARCHITECT helped the patient to the bed so the patient would not try to transfer on his own. call light with in reach. no further needs at this time.
--- NOTE | 2021-08-05 14:25 | NUR ---
THIS RN IN TO CHECK ON PATIENT. PATIENT'S O2 IS OFF AND HE DOES NOT WANT TO PUT IT ON. O2 SATS 93% ON RA AT THIS TIME, SO O2 LEFT OFF. PATIENT DENIES SOB AND PAIN. CALL LIGHT IN REACH. PATIENT HAS NO OTHER CARE NEEDS AT THIS TIME.
--- NOTE | 2021-08-05 15:41 | NUR ---
PATIENT RESTING QUIETLY IN BED AND DENIES SOB, PAIN, AND NAUSEA. PATIENT ABLE TO TURN HIMSELF SIDE TO SIDE. PATIENT ALLEVEYN TO BACK OF LEFT THIGH AND RIGHT HIP/BUTTOCK ARE DRY AND INTACT. PATIENT'S O2 SATS ARE 89-90% AND PATIENT PLACED BACK ON 1.5L/NC AND SATS 92-93%. PATIENT'S CALL LIGHT IN REACH AND URINAL EMPTIED. PATIENT DENIES AN CARE NEEDS AT THIS TIME.
--- NOTE | 2021-08-05 16:40 | NUR ---
PM ASSESSMENT COMPLETE. PATIENT REMAINS ON 1.5L/NC WITH SATS 92-93%. PATIENT'S LUNG EMANUEL REMAIN DIM TO AUSCULTAION WITH BILAT LOWER LOBE EXPIRATORY WHEEZE. BOWEL TONES ACTIVE. PATIENT EATING, DRINKING, AND VOID WNL. CALL LIGHT IS IN REACH.
--- NOTE | 2021-08-05 19:51 | NUR ---
Patient in bed watcing tv, no distress. Patient reports he's doing well at this time. Patient denies pain and or sob at this time. Urinal emptied, fresh water provided. No current needs, personal supplies and call light within reach.
--- NOTE | 2021-08-05 20:39 | NUR ---
Tylenol 500mg po admin for reports of buttock pain. Vital signs taken, stable. Patient provided with fresh water. Patient in on 1.5l oxygen per nc, respirations non labored. No further needs.
--- NOTE | 2021-08-05 21:24 | NUR ---
pt called wanted lotion applied to lower legs. Legs scaley, lotion applied, urinal emptied.
--- NOTE | 2021-08-05 22:00 | NUR ---
WARM BLANKET PROVIDED.
--- NOTE | 2021-08-06 00:41 | NUR ---
Patient resting in bed, no distress. Patient remains on 1.5L oxygen per nc, respirations non labored. Personal supplies and call light within reach.
--- NOTE | 2021-08-06 01:49 | NUR ---
PATIENT CALLED C/O PAIN IN THE LOWER BACK. PRIMARY RN SKIP NOTIFIED. URINAL EMPTIED.
--- NOTE | 2021-08-06 01:58 | NUR ---
Tylenol 500mg po admin for reports of 5/10 buttock pain. Patient repositioned at this time. No further needs.
--- NOTE | 2021-08-06 07:30 | NUR ---
Faxed orders to GONZALO at [facility]. Orders, grace BHARDWAJ summary, wound orders.
--- NOTE | 2021-08-06 07:56 | NUR ---
BEDSIDE REPORT FROM NIGHT RN, ASSUMED ALL CARE OF PT.
--- NOTE | 2021-08-06 08:03 | NUR ---
PT REFUSED TO GET OOB FOR MEAL. CALL LIGHT WITHIN REACH NO ASSITANCE NEEDED AT THIS TIME.
--- NOTE | 2021-08-06 09:19 | NUR ---
Call from GONZALO at [facility], request diet to read Dysphasia: mechainical/honey thick. Diet changed by Dr. Espinoza and order faxed to [facility]. Called and spoke with van, they will transport at 10:00 with our WC.
== END 2021-08-06 10:00 | DRG 208 ==
LOC: ED 13:02 → MS 17:02 → CCU 17:02 → MS 07-14 15:49
PROVIDERS: ADMIT Internal Medicine; ATTEND Internal Medicine
PROC: 0BH17EZ Insertion of Endotracheal Airway into Trachea, Via Natural or Artificial Opening (ICD-10-PCS; principal; 2021-07-11)
PROC: 5A1935Z Respiratory Ventilation, Less than 24 Consecutive Hours (ICD-10-PCS; 2021-07-11)
PROC: 5A09457 Assistance with Respiratory Ventilation, 24-96 Consecutive Hours, Continuous Positive Airway Pressure (ICD-10-PCS; 2021-07-12)
DX: J96.21 Acute and chronic respiratory failure with hypoxia (principal); G93.41 Metabolic encephalopathy; M62.82 Rhabdomyolysis; E66.2 Morbid (severe) obesity with alveolar hypoventilation; J96.22 Acute and chronic respiratory failure with hypercapnia; Z20.822 Contact with and (suspected) exposure to COVID-19; E86.0 Dehydration; L30.4 Erythema intertrigo; E16.2 Hypoglycemia, unspecified; I27.20 Pulmonary hypertension, unspecified; J01.90 Acute sinusitis, unspecified; D46.Z Other myelodysplastic syndromes; E55.9 Vitamin D deficiency, unspecified; Z68.38 Body mass index [BMI] 38.0-38.9, adult; D69.59 Other secondary thrombocytopenia; L89.95 Pressure ulcer of unspecified site, unstageable; J44.9 Chronic obstructive pulmonary disease, unspecified; E53.8 Deficiency of other specified B group vitamins; E56.1 Deficiency of vitamin K; R79.1 Abnormal coagulation profile; I48.0 Paroxysmal atrial fibrillation; I25.2 Old myocardial infarction; R13.12 Dysphagia, oropharyngeal phase; F10.20 Alcohol dependence, uncomplicated; F17.210 Nicotine dependence, cigarettes, uncomplicated; Z98.890 Other specified postprocedural states
CPT/HCPCS: 31720; 36415; 36569; 36600; 70450; 71045; 76705; 80048; 80053; 81001; 82140; 82306; 82553; 82607; 82728; 82803; 83036; 83540; 83550; 83605; 83690; 83735; 84100; 84425; 85025; 85060; 85610; 85730; 86705; 86803; 86850; 86900; 86901; 86922; 87040; 87077; 87186; 92526; 92610; 93005; 93010; 93306; 94002; 94640; 94660; 94760; 94762; 96365; 96375; 97110; 97161; 97530; 99285-25; A9270; C1751; C9113; C9803; G0480; J0295; J0330; J0696; J1450; J2001; J2250; J2370; J2405; J2704; J3411; J3430; J3480; J3486; J7030; J7121; U0003

== ENCOUNTER 2021-08-28 13:04 | Emergency (ER) | payer MEDICARE, OTHER ==
[~2021-08-28] VITALS: Ht 175.3 cm; Wt 117.9 kg
[~2021-08-28 13:04] MED LIST changes: +ACETAMINOPHEN500 MG PO; +CALCIUM CARBON200 MG PO; +IPRAT-ALBUT 0.5-3 ML INH; +MICONAZOLE5 GM MISC; +NICOTINE GUM2 MG MM; +NICOTINE1 EAC2 TD; +ONDANSETRON ODT4 MG SL; +THERA TABLET400 MCG PO; +TRAZODONE HCL100 MG PO; +VITAMIN B-121000 MCG PO; +VITAMIN D21250 MCG PO
== END 2021-08-28 15:56 | disposition home or self-care (01) ==
LOC: ED 13:04
DX: K04.7 Periapical abscess without sinus (principal); F17.200 Nicotine dependence, unspecified, uncomplicated; F12.90 Cannabis use, unspecified, uncomplicated; F10.21 Alcohol dependence, in remission
CPT/HCPCS: J0561

== ENCOUNTER 2021-09-15 20:44 | Inpatient (IN) | payer OTHER, MEDICAID ==
[~2021-09-15] VITALS: Ht 175.3 cm; Wt 98.0 kg
--- OUTSIDE RECORDS SUMMARY | 2021-09-15 20:58 | XMS ---
PreManage Notification: MELE SANZ Security Paint Maker Events No recent Security Events currently on file CRITERIA MET - [facility] - 2 Visits in 30 Days CARE PROVIDERS RIC BIRCH New Car Get Ready Mechanic Current CLARENCE Allen PHONE: [phone] ROYA WONG Internal Medicine Current PHONE: Unknown OLIVIER JAIN Nurse Practitioner: Family Current PHONE: Unknown MARY CARRASCO Internal Medicine Current PHONE: [phone] ITZEL HERNANDES I. Physician Bottle Carrier Current PHONE: Unknown CRUZ GONZALEZ Nurse Practitioner Current PHONE: Unknown NIELS HORNE Nurse Practitioner Jose HOLLISGH PHONE: [phone] [facility] PHONE: [phone] Segundo has no Care Guidelines for this patient. EElizabeth VISIT COUNT (12 MO.) 3 [facility] TOTAL 3 NOTE: Visits indicate total known visits. ED/UCC VISIT TRACKING (12 MO.) 09/15/2021 20:44 [facility] TYPE: Emergency COMPLAINT: - LEG PAIN 08/28/2021 13:04 [facility] TYPE: Emergency COMPLAINT: - SKIN PROBLEM DIAGNOSES: - Other specified disorders of teeth and supporting structures - Cannabis use, unspecified, uncomplicated - Nicotine dependence, unspecified, uncomplicated - Alcohol dependence, in remission - Periapical abscess without sinus 07/11/2021 13:02 [facility] TYPE: Emergency COMPLAINT: - ALTERED MENTAL STATUS INPATIENT VISIT TRACKING (12 MO.) 07/11/2021 17:02 [facility] TYPE: Medical Surgical COMPLAINT: - ENCEPHALOPATHY DIAGNOSES: - Contact with and (suspected) exposure to COVID-19 - Contact with and (suspected) exposure to COVID-19 - Body mass index [BMI] 38.0-38.9, adult - Nicotine dependence, cigarettes, uncomplicated - Other secondary thrombocytopenia - Old myocardial infarction - Morbid (severe) obesity with alveolar hypoventilation - Erythema intertrigo - Old myocardial infarction - Other myelodysplastic syndromes - Hypoglycemia, unspecified - Alcohol dependence, uncomplicated - Other myelodysplastic syndromes - Chronic obstructive pulmonary disease, unspecified - Rhabdomyolysis - Vitamin D deficiency, unspecified - Deficiency of vitamin K - Chronic sinusitis, unspecified - Acute sinusitis, unspecified - Chronic obstructive pulmonary disease, unspecified - Pulmonary hypertension, unspecified - Rhabdomyolysis - Paroxysmal atrial fibrillation - Pressure ulcer of unspecified site, unstageable - Other specified postprocedural states - Abnormal coagulation profile - Pulmonary hypertension, unspecified - Morbid (severe) obesity with alveolar hypoventilation - Paroxysmal atrial fibrillation - Body mass index [BMI] 38.0-38.9, adult - Acute and chronic respiratory failure with hypoxia - Acute sinusitis, unspecified - Pressure ulcer of unspecified site, unstageable - Alcohol dependence, uncomplicated - Erythema intertrigo - Metabolic encephalopathy - Acute and chronic respiratory failure with hypercapnia - Deficiency of other specified B group vitamins - Nicotine dependence, cigarettes, uncomplicated - Other specified postprocedural states - Other secondary thrombocytopenia - Hypoglycemia, unspecified - Dehydration - Rhabdomyolysis - Dysphagia, oropharyngeal phase - Deficiency of vitamin K - Dehydration - Acute and chronic respiratory failure with hypercapnia - Acute and chronic respiratory failure with hypoxia - Vitamin D deficiency, unspecified - Metabolic encephalopathy - Dysphagia, oropharyngeal phase - Deficiency of other specified B group vitamins - Abnormal coagulation profile [email or web address]
[2021-09-19] MEDS ORDERED: VITAMIN B-121000 MCG PO (07:19)
[2021-09-19] MEDS ORDERED: ACETAMINOPHEN500 MG PO (07:19)
[2021-09-19] MEDS ORDERED: VITAMIN D325 MCG PO (07:19)
[2021-09-19] MEDS ORDERED: NICOTINE PATCH1 EACH TD (07:19)
[2021-09-19] MEDS ORDERED: PREDNISONE20 MG PO (07:21)
== END 2021-09-19 13:50 | disposition home or self-care (01) | DRG 189 ==
LOC: ED 20:44 → MS 22:46
PROVIDERS: ADMIT Internal Medicine; ATTEND Internal Medicine
DX: J96.21 Acute and chronic respiratory failure with hypoxia (principal); J44.1 Chronic obstructive pulmonary disease with (acute) exacerbation; E66.2 Morbid (severe) obesity with alveolar hypoventilation; J96.22 Acute and chronic respiratory failure with hypercapnia; I27.20 Pulmonary hypertension, unspecified; E87.6 Hypokalemia; J98.4 Other disorders of lung; F17.210 Nicotine dependence, cigarettes, uncomplicated; E83.42 Hypomagnesemia; Z59.00 Homelessness unspecified; F10.10 Alcohol abuse, uncomplicated; Z20.822 Contact with and (suspected) exposure to COVID-19
CPT/HCPCS: 36415; 71045; 71046; 80053; 83735; 83880; 84132; 85025; 87502; 94640; 94760; 94762; 97162; A9270; C9803; J1650; J1940; J3475; J7512; U0003

== ENCOUNTER 2022-01-05 05:13 | Inpatient (IN) | payer OTHER, MEDICARE, MEDICAID ==
[~2022-01-05] VITALS: Ht 175.3 cm; Wt 104.1 kg
[~2022-01-05 05:13] MED LIST changes: +NICOTINE PATCH1 EACH TD; +PREDNISONE20 MG PO; +VITAMIN D325 MCG PO
--- NOTE | 2022-01-05 09:00 | NUR ---
PT ARRIVES TO CCU ROOM 127, ADMITTED FOR HYPERCAPNEIC RESP FAILURE, AND COVID POSITIVE. PT ARRIVES WITH RT, PLACED ON BIPAP, TRANSFERS SELF OVER TO BED BY SLIDING. PT IS SOMEWHAT DROWSY. PT DIFFICULT TO UNDERSTAND WHEN ASKING ADMISSION QUESTIONS THROUGH BIPAP. LUNGS HAVE VERY SMALL INSP WHEEZE THROUGHOUT, DIMINISHED SOUNDS WITH COARSE CRACKLES HEARD IN LEFT LUNG BASE. BIPAP IS AT 34%, 16/8 RR 26. PT AT FIRST REFUSES BIPAP BUT THEN SETTLES DOWN AND WEARS IT AND FALLS ASLEEP UP IN TRIPOD POSITION.
--- NOTE | 2022-01-05 10:00 | NUR ---
DR CUNNINGHAM UPDATED ON PT- CONTINUED LOW BPS AND URINE OUTPUT-ORDER GIVEN FOR LEVOPHED DRIP AND CONTINUE IVF AT 250ML/HR FOR NOW.
--- NOTE | 2022-01-05 10:30 | NUR ---
WATKINS PLACED WITH STERILE TECHNIQUE. RETURN OF 100ML CONCENTRATED URINE. PT TOLERATED WELL, DROWSY AND SLEEPING THROUGH PROCEDURE.
--- NOTE | 2022-01-05 11:19 | NUR ---
BPS DOWN TO 70/50 MAP 60. LEVOPHED DRIP STARTED AT 4MCG/MIN. PT TOOK MASK OFF ON HIS OWN, WANTING TO GET UP TO VOID. REMINDED HIM THAT HE HAS A CATHETER AND HE SETTLES BACK DOWN IN BED. SIPS OF WATER GIVEN AND PT REPLACED BIPAP MASK. SPO2 HAD DROPPED TO 82-85% ON ROOM AIR. BIPAP REPLACED AND SPO2 BACK UP TO 95%.
--- NOTE | 2022-01-05 11:36 | EKG ---
[facility] [address] [place] [address] Signed Supraventricular tachycardia Low voltage QRS ST \T\ T wave abnormality, consider inferolateral ischemia Abnormal ECG When compared with ECG of 11-JUL-2021 13:08, Vent. rate has increased BY [address] now depressed in Anterolateral leads T wave inversion less evident in Anterior leads T wave inversion more evident in Lateral leads Confirmed by LILI CUNNINGHAM MD ([id number]) on 01/05/2022 11:36:20 AM Electronically Signed By: LILI CUNNINGHAM MD 01/05/22 1136 PATIENT NAME: MELE SANZ Electrocardiogram DATE OF : 52 PHYSICIAN: LILI CUNNINGHAM MD REPORT #: [id number] REPORT IS CONFIDENTIAL AND NOT TO BE RELEASED WITHOUT AUTHORIZATION
--- NOTE | 2022-01-05 11:43 | NUR ---
PT AGAIN REMOVED BIPAP SAYING "GET ALL THIS STUFF OFF ME", PULLING AT MONITOR CORDS AND IV TUBING. REMINDED PT WHY HE IS HERE AND REASON FOR EQUIPMENT AND BIPAP. PT CONTINUES TO REFUSE BIPAP, OXYMASK PLACED ON PT AT 4L AND SPO2 UP TO 97%. LEVOPHED DRIP TITRATED UP TO 6MCG/MIN LAST BP DROPPED DOWN TO 90/52 MAP 64. PT ASSISTED WITH FINDING CHANNEL ON TV TO WATCH AND POSIITONING IN BED.
--- NOTE | 2022-01-05 13:26 | NUR ---
DR CUNNINGHAM ROUNDING ON UNIT, UPDATED ON CURRENT VS, URINE OUTPUT, PT REFUSING BIPAP. PLAN TO START ANTIBIOTIC.
--- NOTE | 2022-01-05 14:43 | NUR ---
PT C/O BACK PAIN AND REQUESTS MEDICATION. PRN TYLENOL GIVEN. PT CONTINUES TO SIT UP IN BED WATCHING TV AND USING CALL LIGHT FREQUENTLY. SPO2 92% ON 3L/NC AND RR 28. ENCOURAGED PT TO WEAR BIPAP AND HE STILL REFUSES.
--- NOTE | 2022-01-05 15:05 | NUR ---
PT CONTINUES TO C/O BACK PAIN, STATES NO RELIEF SINCE TYLENOL GIVEN. DR LYNCH ON UNIT AND UPDATED ON PAIN.
--- NOTE | 2022-01-05 15:15 | NUR ---
PT CALLING OUT, C/O NAUSEA, RETCHING INTO BAG. 4MG IV ZOFRAN GIVEN. LAB IN TO DRAW BLOOD CULTURES.
--- NOTE | 2022-01-05 15:17 | NUR ---
OXYCODONE GIVEN FOR BACK PAIN.
--- NOTE | 2022-01-05 15:30 | NUR ---
OVER THE LAST FIFTEEN MINUTES THE PT HAS HAD A CHANGE IN CONDITION, LOOKING WORSE. TEMP UP TO 99-100, HR UP TO 140'S, RR UP TO 40. PT HAS BEGUN SHAKING WITH CHILLS, MOTTLING NOTED TO LOWER EXTREMITIES. PTS RESP BECOME MUCH MORE LABORED WITH LOTS OF WHEEZES HEARD THROUGHOUT, LESS AIR MOVEMENT NOTED THAN EARLIER IN THE DAY. DR LYNCH UPDATED, RT CALLED FOR NEB TX. PT WAS ABLE TO TOLERATE BIPAP FOR APPROX 10 MINUTES, PT STARTED TO LOOK A BIT BETTER WITH HR DOWN TO 130 AND RR DOWN TO 30'S. THEN HE TORE IT OFF WITH C/O NAUSEA AND SMALL EMESIS. WILL KEEP BIPAP OFF FOR NOW. MONITOR UNABLE TO READ BP D/T PT SHAKING, MANUAL BP DONE WAS 140/60. MOTRIN GIVEN FOR CONTINUED FEVER.
--- NOTE | 2022-01-05 16:25 | NUR ---
PT NOW RESTING, WEARING BIPAP. RR DOWN TO 28. SPO2 92% ON 34% BIPAP 16/8. HR 120'S. LAST BP WAS 99/56 MAP 69. BOLUS COMPLETED, TOTAL OF 3L IVF IN SINCE ARRIVAL TO HOSPITAL. LEVOPHED DRIP REMAINS OFF.
--- NOTE | 2022-01-05 17:47 | NUR ---
IN TO REPOSITION PT, CHECK OUT BACK SIDE, NO OPEN SORES FOUND. AXIALLARY TEMP CHECKED IS 102.7.
--- NOTE | 2022-01-05 18:46 | NUR ---
SANDWICHES PROVIDED FOR DINNER PER REQUEST
--- NOTE | 2022-01-05 19:05 | NUR ---
URINE OUTPUT 10ML LAST HOUR, DR LYNCH INFORMED, ORDER GIVEN FOR 500ML BOLUS AND INCREASE IVF TO 150ML/HR. PT HAS JUST FINISHED EATING 2 SANDWICHES.
--- NOTE | 2022-01-05 21:22 | NUR ---
DR LYNCH UPDATED ON PATIENTS CONDITION; LEVO AT 3MCGS, PATIENT REFUSED CT SCAN, DECREASED URINE OUTPUT. PATIENT SITTING UP IN BED CALL LIGHT IN REACH. CAN MAKE NEEDS KNOWN.
--- NOTE | 2022-01-05 22:05 | NUR ---
PATIENT CALLS OUT FROM ROOM, THIS NURSE ANSWERED. PER PATIENT "I WANT TO GO SMOKE A CIGARETTE." EXPLAINED TO PATIENT THIS IS A NON-SMOKING CAMPUS.
--- NOTE | 2022-01-05 22:08 | NUR ---
PATIENT CALL LIGHT ON, UPON ANSWERING CALL LIGHT BY THIS NURSE PATIENT STATES, "I WANT TO GET OUT OF HERE, I WANT TO GO BACK TO WHERE I WAS, YOU CAN'T KEEP ME HERE."
--- NOTE | 2022-01-05 22:12 | NUR ---
PATIENT USES CALL LIGHT AGAIN, CALL LIGHT ANSWERED BY THIS NURSE, PATIENT AGAIN STATES, "I WANT TO GO BACK TO WHERE I WAS, YOU CAN'T KEEP ME HERE." DISCUSSED WITH PATIENT HIS MEDICAL NEEDS, PATIENT REMAINS ADAMANT ON WANTING TO LEAVE.
--- NOTE | 2022-01-05 22:15 | NUR ---
PT USED CALL LIGHT, THIS RN ANSWERED AT PT ROOM ALL. PT SAID "I WANT TO LEAVE HERE, I WANT TO GO BACK TO MY HOME" THIS RN SAID "OK, I WILL LET GEORGE BYNUM KNOW SHE IS YOUR PRIMARY RN, AND SHE WILL CALL IN THIS REGARDS.
--- NOTE | 2022-01-05 22:29 | NUR ---
DR LYNCH NOTIFIED THAT PATIENT WOULD LIKE TO LEAVE AMA SO HE CAN SMOKE. I TALKED WITH THE PATIENT ABOUT THE RISKS AND BENEFITS OF LEAVING AMA AND PATIENT AGREED TO STAY BUT IS IRRITATED THAT HE CANNOT SMOKE.
--- NOTE | 2022-01-05 22:45 | NUR ---
PATIENT CALLED TO REPORT NAUSEA. PATIENT GIVEN PRN ZOFRAN. PATIENT NOTED TO BE STICKING HIS FINGER DOWN HIS THROAT TRYING TO VOMIT. HE REPORTED HE NEEDED TO VOMIT. PATIENT DRY HEAVING INTO TRASH CAN.
--- NOTE | 2022-01-05 22:55 | NUR ---
PATIENT CONTINUES TO STATE HE WANTS TO GO HOME. ABLE TO RE-ORIENT TO CONDITION AND PATIENT WILLING TO STAY.
--- NOTE | 2022-01-06 00:07 | NUR ---
PATIENT HAD AN EPISODE OF EMESIS. GOWN AND LINEN CHANGED. PATIENT REPORTS EATING PUDDING AND THEN HE JUST VOMITED. PATIENT EDUCATED TO NOT HAVE ANY MORE FOOD FOR TONIGHT.
--- NOTE | 2022-01-06 01:24 | NUR ---
PATIENT RESTING IN BED WITH EYES CLOSED. OXYGEN AT 3LPM VIA NASAL CANULA. LEVOPHED TITRATED TO MAINTAIN MAP > 65. CALL LIGHT IN REACH AND PATIENT CAN MAKE NEEDS KNOWN.
--- NOTE | 2022-01-06 05:16 | NUR ---
LAB AT BEDSIDE FOR AM DRAW. PATIENT REMAINS ON LEVOPHED AT 2 MCGS TO MAINTAIN MAO > 65, AND OXYGEN AT 3LPM VIA NC TO MAINTAIN SATS >90%. WATKINS CATH DRAINING TO BEDSIDE BAG. OUTPUT LOW. MD AWARE. CALL LIGHT IN REACH AND PATIENT CAN MAKE NEEDS KNOWN.
--- NOTE | 2022-01-06 07:12 | NUR ---
PATIENT CALLED AND REPORTED FEELING NAUSEA WITH EMESIS ON GOWN. GOWN CHANGED AND PRN ZOFRAN GIVEN.
--- NOTE | 2022-01-06 07:17 | NUR ---
DR LYNCH NOTIFIED OF CRITICAL LAB. WBC 34.4. REQUESTED CT SCAN BE DONE TODAY. RESTATED THAT THE PATIENT REFUSED CT AND THE PATIENT STATED HE WILL NOT DO A CT SCAN. REQUEST FOR PICC LINE DUE TO LEVOPHED GTT.
--- NOTE | 2022-01-06 07:50 | NUR ---
REPORT RECEIVED FROM GEORGE BYNUM. PT SITTING UP IN BED AWAKE. HR 109, SPO2 88% ON ROOM AIR. WILL GO IN AND PUT OXYGEN BACK ON.
--- NOTE | 2022-01-06 08:05 | NUR ---
RT IN TO DO NEB TX.
--- NOTE | 2022-01-06 08:15 | NUR ---
PT HAS JUST FINISHED WITH RT. IN TO DO ASSESSMENT AND BRING PT BREAKFAST, HE HAS CALLED SEVERAL TIMES ALREADY THIS MORNING ASKING FOR BREAKFAST. LEVOPHED DRIP HAD BEEN AT 2MCG/MIN, TURNED OFF FOR NOW FOR MAPS HAVE BEEN IN 70'S AND 80'S. ASSESSMENT DONE, PT REMAINS ON 3L/NC OXYGEN WITH SPO2 MID NINETIES AND RR LOWER TODAY THAN [id number] THIS MORNING. WHEEZES HEARD THROUGHOUT LUNG EMANUEL, PT DENIES FEELING SOB, DOES NOT LOOK LABORED AT THIS TIME. PT IS AFEBRILE. URINE IS CLOUDY AND DARK YELLOW. IVF INFUSING AT 150ML/HR.
--- NOTE | 2022-01-06 08:40 | NUR ---
PT BEGAN TO HAVE EMESIS WHILE EATING BREAKFAST. BREAKFAST TAKEN AWAY. DISCUSSED OPTION OF CT SCAN OF ABDOMEN AGAIN WITH PT, PT AGREEABLE AND WILL TRY.
--- NOTE | 2022-01-06 09:40 | NUR ---
PT TAKEN OUTSIDE ON MONITOR PER REQUEST, TRANSFERRED HIMSELF TO WHEELCHAIR FROM BED WITH SBA ONLY. SAT OUTSIDE APPROX 10 MINUTES THEN BROUGHT BACK TO CCU, WHERE HE SAT UP IN THE WHEELCHAIR ABOUT 20 MORE MINUTES THEN TRANSFERRED HIMSELF BACK TO THE BED.
--- NOTE | 2022-01-06 10:00 | NUR ---
RESTARTED LEVOPHED DRIP PER DROPPING BP'S. PT BACK IN BED NOW, WANTING CIGARRETTES.
--- NOTE | 2022-01-06 12:15 | NUR ---
DR LYNCH IN TO SEE PT AND DISCUSS PLAN FOR UROLOGISHT CONSULT AND FINDINGS OF ABDOMINAL CT WITH PT. PT WANTS TO SMOKE A CIGARRETTE, NOT HAPPY AT THIS TIME.
--- NOTE | 2022-01-06 14:02 | NUR ---
ANESTHESIA IN TO SEE PT, DISCUSS PROCEDURE. NEB TX PER REQUEST OF ANESTHESIA. SURGERY CREW ON THE WAY.
--- NOTE | 2022-01-06 15:15 | NUR ---
PT BACK FROM SURGERY WITH PROGRAM WRITER AND ANESTHESIA, INTO ROOM 127 FOR RECOVERY. PT IS INITIALLY QUITE DROWSY, NEEDS FREQUENT REMINDERS TO BREATHE, OCCASIONALLY AIRWAY NEEDS TO BE POSITIONED BUT AFTER APPROX 20 MINUTES PT IS ABLE TO MAINTAIN HIS OWN AIRWAY, ANSWERS QUESTIONS AND FOLLOWS COMMANDS. SPO2 97% ON 10L/OXYMASK. END TIDAL CO2 35-50, WILL CONT TO MONITOR. BP 105/63 AND HR 110.
--- NOTE | 2022-01-06 15:57 | NUR ---
PT CONTINUES TO BE VERY UPSET ABOUT WANTING A CIGARETTE, DEMANDING TO LEAVE OR TO HAVE A CIGARETT, YELLING "TAKE ME OUT OF HERE, TAKE ME BACK TO MY ROOM, TAKE ME OUTSIDE, GIVE ME A CIGARETTE!". OFFERED PT FOOD OR DRINKS, NICOTINE LOZENGE, REFUSES ALL OF THESE THINGS. REFUSES TO WEAR OXYGEN AT THIS TIME.
--- NOTE | 2022-01-06 15:58 | NUR ---
01/06/22 1558 Salome Mendez 1511 PT ARRIVED IN PACU SLEEPY IN [place]. O2 @ 10L VIA MASK. 1515 PT COUGHING AND SUCTIONED BY RN. O2 CHANGED TO NC WITH CO2 MONITORING AND PLACED AT 2L. 1520 O2 SATS IN 80'S. CHANGED PT TO OXYMASK AND INCREASED TO 10L. SATS INCREASED TO 90'S. ANESTHESIA AT BEDSIDE. 1530 PT ASKING FOR CIGARETTE. REMINDED HAS PATCH ON AND CAN'T SMOKE AT THIS TIME. CCU RN ORDERING FOOD FOR PT. 1535 REPORT GIVEN TO RN/DR LYNCH.
--- NOTE | 2022-01-06 17:04 | NUR ---
PT HAS CALMED DOWN NOW, NO LONGER YELLING AND OVERALL MORE AGREEABLE. BROUGHT DINNER IN TO HIM AND ASSISTED WITH SITTING UP TO EAT IT. PT C/O BEING COLD, WARM BLANKET PROVIDED. IVF INFUSING AT 100ML/HR.
--- NOTE | 2022-01-06 19:52 | NUR ---
PATIENT REQUESTED PRN TYLENOL FOR LEFT KNNE PAIN. UPDATED ON PLAN OF CARE. PATIENT COUGHING UP SCNAT AOUMTS OF CLEAR SECRETIONS. VS STABLE. REMAINS OFF OF PRESSURE SUPPORT. AFEBRIL. CALL LIGHT IN REACH AND CAN MAKE NEEDS KNOWN.
--- NOTE | 2022-01-06 20:37 | NUR ---
PATIENT CALLED AND WANTED TO GO OUTSIDE. EDUCATED PATIENT THAT THERE IS NOT ENOUGH STAFF TO TAKE HIM OUTSIDE TONIGHT. PATIENT ALSO WANTED THE ROOM TEMPURATURE TURNED DOWN.
--- NOTE | 2022-01-06 20:40 | NUR ---
DR LYNCH CALLED FOR UPDATE. GAVE UPDATE ON URINE OUTPUT AND VS. ORDERS TO DECREASE LR TO 75ML/HR
--- NOTE | 2022-01-07 | NUR ---
PATIENT CALLED AND STATED HE WANTED TO GO BACK TO HIS ROOM. REORIENTED PATIENT TO HOSPITAL. HE SAID HE HAD JUST WOKE UP AND GOT THINGS CONFUSED. PATIENT REQUESTED A SNACK. PUDDING PROVIDED.
--- NOTE | 2022-01-07 04:51 | NUR ---
PATIENT REPORTING HE WANTS TO GO SMOKE. I REMINDED HIM THAT HE WAS IN THE HOSPITAL AND HE STATED HE WAS SORRY HE KEEPS FORGETING. REORIENTED TO TIME, PLACE, AND SITUATION. PATIENT COMPLIANT WITH CARES.
--- NOTE | 2022-01-07 06:36 | NUR ---
PATIENT REMOVED TWO LEADS AND HIS LEFT IV. PATIENT STATED HE WAS CONFUSED AND PULLING AT THINGS. IV TIP INTACT. LEADS REPLACED. CALL LIGHT IN REACH AND CAN MAKE NEEDS KNOWN.
--- NOTE | 2022-01-07 07:28 | OR ---
[facility] [address], [place] [address] Signed DATE OF OPERATION: 01/06/2022 SURGEON: Asya Marinelli MD PREOPERATIVE DIAGNOSES: 1. Sepsis secondary to obstructing 6 mm left mid ureteral calculus. 2. Active urinary tract infection with Gram-negative rods, culture pending. 3. A 4.5 cm solid left renal mass. POSTOPERATIVE DIAGNOSES: 1. Sepsis secondary to obstructing 6 mm left mid ureteral calculus. 2. Active urinary tract infection with Gram-negative rods, culture pending. 3. A 4.5 cm solid left renal mass. PROCEDURES: Diagnostic cystoscopy with left ureteral stent insertion. ANESTHESIA: General. ESTIMATED BLOOD LOSS: None. COMPLICATIONS: None. SPECIMENS: None. DRAINS: A 6 x 26 cm double-J ureteral stent inserted into the left ureter. INDICATIONS FOR PROCEDURE: Mr. Lewis is a very pleasant 71-year-old gentleman with a past medical history significant for COPD, who presents today to undergo cystoscopy with left ureteral stent insertion after he underwent a CT scan this morning, which revealed a partially obstructing 6 mm left mid ureteral calculus. He was admitted to [facility] yesterday for sepsis of unknown source. He was then found to have an active UTI and his blood cultures have grown out Gram-negative rods. Also, of note, he does also have a concomitant COVID infection. The patient denies any prior history of kidney stones. He Electronically Signed By: ASYA MARINELLI MD 01/07/22 0728 PATIENT NAME: MELE LEWIS OPERATIVE REPORT DATE OF : 52 REPORT #: [id number] PHYSICIAN: ASYA MARINELLI MD PCP: SOHAM LINDSEY MD REPORT IS CONFIDENTIAL AND NOT TO BE RELEASED WITHOUT AUTHORIZATION [facility] [address], [place] [address] Signed was able to tell me today that he had not been feeling well for the past few days, but denies any flank pain or gross hematuria. After a description of the risks and benefits of the procedure, the patient has agreed to undergo semi-emergent cystoscopy with left ureteral stent insertion. FINDINGS: 1. On cystoscopy, there was no evidence of any suspicious masses, lesions, or stones. Bilateral ureteral orifices are in their normal anatomic location. 2. Ureteroscopy reveals moderate prostate enlargement with a mildly elevated bladder neck. 3. A 6 x 26 cm double-J ureteral stent was inserted into the patient's left collecting system under direct visualization without difficulty. DESCRIPTION OF PROCEDURE: After informed consent was obtained, the patient was taken back to the operating room. He was transferred from the [facility] to the operating room table, where general anesthesia was induced. He was placed in the dorsal lithotomy position and his genitalia prepped and draped in standard sterile fashion. Using a 30-degree lens on a 22.5-Persian introducer, a rigid cystoscope was inserted through his urethra and into his bladder under direct visualization. Panendoscopic views of the bladder were then obtained. Please see above findings. I then turned my attention to the left ureteral orifice. A 0.035 Sensor wire was inserted into the left ureteral orifice and up into the left collecting system. Adequate placement of the wire was confirmed on fluoroscopy. Over the wire, I passed a 6 x 26 cm double-J ureteral stent into the left collecting system. I chose not to perform a left retrograde pyelogram due to the patient's active urosepsis. Once I pulled the Sensor wire, I could appreciate an adequate coil within the left renal pelvis. An adequate distal coil was noted on cystoscopy. I then re-inserted a fresh 16-Persian silicone Lewis catheter and filled the balloon with 10 mL. The procedure was then terminated. The patient tolerated the procedure well without any complication. He will now be transferred to the postanesthesia care unit in stable condition. DISPOSITION: I notified Dr. Tobias that the left ureteral stent had been placed successfully. The patient will require definitive ureteroscopy with stone extraction in approximately couple of weeks once he recovers from his sepsis. He has been tentatively placed back on the OR schedule on January 21, 2022. My office will be in touch with [facility] to get this scheduled and properly coordinated. He is now released back to the care of Dr. Tobias, who will be continuing IV cefepime until his blood cultures have revealed sensitivities. Dr. Tobias may restart his diet per his preference now. Electronically Signed By: ASYA MARINELLI MD 01/07/22 0728 PATIENT NAME: MELE LEWIS OPERATIVE REPORT DATE OF : 52 REPORT #: [id number] PHYSICIAN: ASYA MARINELLI MD PCP: SOHAM LINDSEY MD REPORT IS CONFIDENTIAL AND NOT TO BE RELEASED WITHOUT AUTHORIZATION [facility] [address] [place] [id number] Signed MD VICK Seth/MODL /[id number] Copies: ~ Electronically Signed By: ASYA MARINELLI MD 01/07/22 0728 PATIENT NAME: UMUMELE OPERATIVE REPORT DATE OF : 52 REPORT #: [id number] PHYSICIAN: ASYA MARINELLI MD PCP: SOHAM LINDSEY MD REPORT IS CONFIDENTIAL AND NOT TO BE RELEASED WITHOUT AUTHORIZATION
--- NOTE | 2022-01-07 07:30 | NUR ---
REPORT RECIEVED. PATIENT IS RESTING.
--- NOTE | 2022-01-07 09:24 | NUR ---
WATKINS EMPTIED AND CHARTED.
--- NOTE | 2022-01-07 10:00 | NUR ---
NAPPING, IVF PATENT. WATKINS CATH PATENT, O2 AT [address]
--- NOTE | 2022-01-07 10:50 | NUR ---
DR. LYNCH HERE TO SEE PATIENT, ORDERS RECIEVED TO TRANSFER TO MED-SURG.
--- NOTE | 2022-01-07 11:15 | NUR ---
MONITOR AND IVF DC'D. PATIENT HAS BEEN SITTING UP IN BED WATCHING TV. DENIES PAIN.
--- NOTE | 2022-01-07 11:20 | NUR ---
Spoke with Jared. He is pleasant and states he cont. to live at [facility]. They provide full care with showering and dressing. Pt is able to roll his wc to the dinning room. He enjoys living at [facility] and is eager to return. They are assisting him with medicaid process to cover his expense of living there. Pt plans on return to [facility] when cleared medically.
--- NOTE | 2022-01-07 11:20 | NUR ---
REPORT TO MED-SURG.
--- NOTE | 2022-01-07 11:40 | NUR ---
to med-surg VIA BED.
--- NOTE | 2022-01-07 11:57 | NUR ---
PT TO MED-SURG VIA BED. ALERT AND COOPERATIVE REQUESTS BLINDS TO BE PULLED AND TV TO PARTICULAR CHANNEL. ORIENTED TO ROOM CALL LIGHT IN LAP, NOON MEAL SERVED. PT DENIES DISCOMFORTS OR NEEDS OF. 02 ON AT 3LPM
--- NOTE | 2022-01-07 12:43 | NUR ---
PT USES CALL LIGHT APPROPRIATELY. TOLERATES 100% OF NOON MEAL, CONTINUES WATCHING TV DENIES NEEDS OF
--- NOTE | 2022-01-07 15:27 | NUR ---
PT CALLS WANTING TO SEE THE DOCTOR, WANTS TO GO OUT TO SMOKE. DENIES MEDICAL NEED STATES HE WANTS TO SMOKE, WANTS TO GO HOME. PT DOZING NOW LEFT UNDISTURBED
--- NOTE | 2022-01-07 18:34 | NUR ---
PT CONTINUES WATCHING TV IN BED COMPLETES EVENING MEAL. FRESH H20 TO BEDSIDE CALL LIGHT IN REACH
--- NOTE | 2022-01-07 19:20 | NUR ---
REPORT RECEIVED FROM DAY SHIFT RN. PT LYING IN BED RESTING WITH EYES CLOSED. RESPIRATIONS EVEN. CALL LIGHT IN REACH. WHITE BOARD UPDATED.
--- NOTE | 2022-01-07 20:02 | NUR ---
CALL LIGHT ANSWERED. PT HAD LARGE EMESIS OF PARTIALLY DIGESTED FOOD. PRN FOR N/V ADMI PER EMAR. ASSISTED PT TO CLEAN SKIN. LINENS AND GOWN CHANGED. PT ABLE TO ASSIST WITH CARES. SODA PROVIDED. NO FURTHER NEEDS.
--- NOTE | 2022-01-07 20:48 | NUR ---
EVENING ASSESSMENT COMPLETE. IV ABX INFUSING WNL. PT REPORTS BACK PAIN 10/31. PRN FOR PAIN ADMIN PER EMAR. WATKINS PATENT WITH PINK TINGED URINE. WATKINS CARE DONE. 3L/NC IN PLACE. LOOSE NON PRODUCTIVE COUGH NOTED. PT DENIES SOB AT REST. ASSITED TO REPOSITION IN BED. DENIES QUESTIONS OR CONCERNS AT THIS TIME. CALL LIGHT IN REACH.
--- NOTE | 2022-01-07 23:01 | NUR ---
PT HAD 200 ML EMESIS, REQUESTING PRN FOR N/V. DR LYNCH NOTIFIED. NEW ORDERS RECEIVED. PRN N/V ADMIN PER EMAR.
--- NOTE | 2022-01-08 | NUR ---
PT RESTING IN BED WITH EYES CLOSED. RESPIRATIONS EVEN. CALL LIGHT IN REACH.
--- NOTE | 2022-01-08 03:17 | NUR ---
CALL LIGHT ANSWERED. IN TO ASSIST PT REPOSITION IN BED. DENIES NAUSEA AT THIS TIME. ASSESSMENT COMPLETE. NO FURTHER NEEDS.
--- NOTE | 2022-01-08 05:13 | NUR ---
PT RESTING WITH EYES CLOSED. AWAKENS EASILY. VS AND I&O COMPLETE. NO NEEDS AT THIS TIME. CALL LIGHT IN REACH.
--- NOTE | 2022-01-08 07:15 | NUR ---
REPORT RECEIVED FROM MISA HUNT. PT LAYING IN BED WITH EYES CLOSED. RR EVEN AND UNLABORED. NO NEEDS IDENTIFIED AT THIS TIME. CALL LIGHT IN REACH.
--- NOTE | 2022-01-08 07:35 | NUR ---
IN TO ANSWER CALL LIGHT. PT REQUSTING OVERHEAD LIGHTS TO BE TURNED OFF. LIGHTS TURNED OFF. NO OTHER NEEDS AT THIS TIME. CALL LIGHT IN REACH.
--- NOTE | 2022-01-08 09:27 | NUR ---
IN TO ADMINISTER MEDICATIONS, SEE MAR. PT LAYING IN BED WITH EYES CLOSED. PT RESPONDS WHEN ADDRESSED VERBALY AND WITH TOUCH ON SHOULDER. ASSESSMENT COMPLETE. EXPIRATORY WHEEZE IN RUL, KATIE AND LLL. DIMINISHED LUNG SOUNDS IN LLL AND RLL. PT ON 3L NC WITH O2 SATS AT 96%. BLE TALHA AND SCALING. CMS INTACT. SKIN IS DRY. PT SITTING UP IN BED WITH MEAL TRAY. TISSUES PROVIDED PER PT REQUEST. NO OTHER NEEDS AT THIS TIME. CALL LIGHT IN REACH.
--- NOTE | 2022-01-08 09:46 | NUR ---
IN TO ANSWER CALL LIGHT. PT REQUESTING TRAY TO BE REMOVED AND NEW ICE WATER. TRAY REMOVED AND ICE WATER PROVIDED. NO OTHER NEEDS AT THIS TIME FROM THIS RN. CONCEPCIÓN ZAVALA IN ROOM. CALL LIGHT IN REACH.
--- NOTE | 2022-01-08 10:22 | NUR ---
IN TO ANSWER CALL LIGHT. IV ALARMING, IV ABX COMPLETE. PT REQUESTING HOB TO GO DOWN AND FOR SOME NAPKINS. HOB DOWN AND NAPKINS PROVIDED. NO OTHER NEEDS AT THIS TIME. CALL LIGHT IN REACH.
--- NOTE | 2022-01-08 11:47 | NUR ---
IN TO ROUND ON PT. PT RESTING IN BED WITH EYES CLOSED, LIGHT OFF AND TELEVISION ON. RR EVEN AND UNLABORED. PT ON 3L NC. NO NEEDS IDENTIFIED AT THIS TIME. CALL LIGHT IN REACH.
--- NOTE | 2022-01-08 12:36 | NUR ---
IN TO ROUND ON PT. PT RESTING IN BED WITH EYES CLOSED. MEAL TRAY IN ROOM. PT AWAKENS SPOKEN TO. MEAL TRAY SET IN FRONT OF PT. NO OTHER NEEDS AT THIS TIME. CALL LIGHT IN REACH.
--- NOTE | 2022-01-08 13:15 | NUR ---
IN TO ANSWER CALL LIGHT. PT REQUESTING BATHROOM DOOR CLOSED, BATHROOM DOOR CLOSED. NO OTHER NEEDS AT THIS TIME. CALL LIGHT IN REACH. PT SITTING UP IN BED.
--- NOTE | 2022-01-08 13:16 | NUR ---
Called and updated Yo at [facility]. Pt may dc tomorrow, I will confirm in the morning. Asked if she would let me know if they are in agreement for this pt to return.
--- NOTE | 2022-01-08 14:20 | NUR ---
ROLAND Chew. PT TOLERATED WELL. URINAL PROVIDED. PT EDUCATION PROVIDED.
--- NOTE | 2022-01-08 14:31 | NUR ---
IN TO REASSESS PT. EXPIRATORY WHEEZING THROUGHOUT LUNGS. SCROTAL EDEMA NOTED, PILLOW SLING TO ELEVATE SCROTUM IN PLACE. SCDs IN PLACE. PT REPORTING PAIN 5/10 IN LOWER BACK, PT DENIES ANY PRN PAIN MEDICATION AT THIS TIME. NO OTHER CHANGES FROM PREVIOUS ASSESSMENT. PT SITTING UP IN BED AWAKE AND ALERT. LAB IN TO DRAW LABS. NO OTHER NEEDS AT THIS TIME. CALL LIGHT IN REACH.
--- NOTE | 2022-01-08 15:12 | NUR ---
I ASKED PATIENT IF HE WOULD LIKE A SHOWER OR A BED BATH AND HE SAID NO ON BOTH.
--- NOTE | 2022-01-08 16:55 | NUR ---
IN ROOM TO ROUND ON PT. PT SITTING UP IN BED WITH TELEVISION ON. URINAL EMPTIED. PT REQUESTING SPRITE, SPRITE PROVIDED. NO OTHER NEEDS AT THIS TIME. CALL LIGHT IN REACH.
--- NOTE | 2022-01-08 19:25 | NUR ---
REPORT RECEIVED FROM DAY SHIFT RN. PT LYING IN BED ALERT AND ORIENTED. URINAL EMPTIED. SNACK PROVIDED. NO FURTHER NEEDS. WHITE BOARD UPDATED. CALL LIGHT IN REACH.
--- NOTE | 2022-01-08 21:00 | NUR ---
CALL LIGHT ANSWERED. PATIENT C/O "HOT". 2 BLANKETS OFF FOLDED DOWN TO HIS ANKLES. SODA PROVIDED. EMPTIED URINAL.
--- NOTE | 2022-01-08 21:31 | NUR ---
EVENING ASSESSMENT COMPLETE. PT REPORTS BACK PAIN 10/31. PRN FOR PAIN ADMIN PER EMAR. IV ABX INFUSING WNL. 3L/NC IN PLACE. PT DENIES SOB. OCCASIONAL COUGH NOTED. PT DENIES NAUSEA. HOB ELEVATED. ASSISTED TO REPOSITION IN BED. PT DENIES QUESTIONS OR CONCERNS. CALL LIGHT IN REACH.
--- NOTE | 2022-01-08 23:01 | NUR ---
PT SITTING UP WATCHING TV. DENIES NEEDS. CALL LIGHT IN REACH.
--- NOTE | 2022-01-09 00:32 | NUR ---
CALL LIGHT ANSWERED. URINAL EMPTIED. FRESH WATER AND A SNACK PROVIDED. NO FURTHER NEEDS.
--- NOTE | 2022-01-09 01:53 | NUR ---
CALL LIGHT ANSWERED. PATIENT C/O STATED " ITS HOT". ROOM TEMP ADJUSTED FROM 70 TO 68. URINAL EMPTIED.
--- NOTE | 2022-01-09 03:27 | NUR ---
PT CALLED REQUESTING ASSISTANCE WITH HIS BLANKETS. ASSISTED PT TO REPOSITION IN BED. ROMEO CARE DONE AND NEW TOWEL PLACED UNDER SCROTUM FOR GENERALIZED EDEMA. URINAL EMPTIED. FRESH SODA PROVIDED. ASSESSMENT COMPLETE. NO FURTHER NEEDS.
--- NOTE | 2022-01-09 03:47 | NUR ---
PT REPORTS NECK/BACK PAIN 08/31. PRN FOR PAIN ADMIN PER EMAR. NO FURTHER NEEDS.
--- NOTE | 2022-01-09 05:16 | NUR ---
CALL LIGHT ANSWERED. URINAL EMPTIED. VS AND I&O OBTAINED. ASSISTED PT TO REPOSITION. NO FURTHER NEEDS.
--- NOTE | 2022-01-09 09:15 | NUR ---
IN TO DO ASSESSMENT AND GIVE MORNING MEDS. PT SITTING UPRIGHT IN BED EATING BREAKFAST. HARD OF HEARING, REFUSES TO HAVE BLINDS OPENED, VERY PARTICULAR ABOUT HOW OPEN DOOR/BLINDS ARE. LUNGS COARSE WITH INSP/EXP WHEEZE. O2 94% ON 3L PER NC, PT DENIES SOB. HARSH COUGH. URINATING SMALL AMOUNTS FREQUENTLY. CALL LIGHT IN HAND.
--- NOTE | 2022-01-09 11:28 | NUR ---
CALLED DR SOHAM RAM OFFICE. ON HOLD FOR 26MINUTES TO GET THROUGH. SPOKE WITH STAFF REGARDING PATIENT NEEDING REFERRAL FOR NEOPLASM WORKUP AFTER DISCHARGE HERE. DISCUSSED THAT I HAVE ALREADY FAXED CHART TO THEIR INTAKE FAX AT [facility] AND I CAN SEND IT TO HIS OFFICE DIRECTLY IF THEY WANT. SHE WAS UNABLE TO FIND WHICH FAX TO SEND IT DUE TO NEW COMPUTER SYSTEM. SHE TOOK MY CALL BACK NUMBER TO HAVE THEM CALL ME ON WHERE TO SEND IT IF THEY DON'T FIND WHAT I SENT ALREADY.
[2022-01-09] MEDS ORDERED: CIPROFLOXACIN500 MG PO (12:29)
--- NOTE | 2022-01-09 13:08 | NUR ---
RECEIVED CALL BACK FROM EMY RAM OFFICE [facility]. DISCUSSED THE OUTPATIENT WORKUP/REFERRAL FOR KIDNEY NEOPLASM. WILL FAX CHART TO HIM AT [phone].
--- NOTE | 2022-01-09 13:09 | NUR ---
Pt called to ask for tylenol for 8/10 headache and back pain. Pt sitting up in bed watching tv on 4l o2, resp even and unlabored. Harsh, productive cough. Urinal and call light in reach.
--- NOTE | 2022-01-09 13:15 | NUR ---
Received 02 qualifier. Pt would like [facility] for 02. Faxed face sheet, H&P, 02 qualifier, rx, dc summary to [facility]. Called and updated I have sent the chart and pt will dc today. Asked when they can deliver 02 as I will hold pt until I know when they can deliver 02.
--- NOTE | 2022-01-09 13:50 | NUR ---
Spoke with Yo from [facility] and notified I have faxed her orders for [place]. Pt can return at any time. Called and scheduled the for for their only appt time at 3:30. Texted Yo. Called and spoke with [facility], they state they now have a pile driver operator barge mounted in and will be able to deliver 02 near discharge time. Yo had concerns as she states she has been trying to call Dr. Albert del rosario today to confirm surgery on Friday. They have not been able to contact. Called Dr. Willis office, was able to reach legal secretary receptionist. Let them know pt lives a [facility] and will need surgery instructions the Friday before surgery. She left a message asking their staff to call. I then texted Yo and let her know pt will transport from here at 3:30 today, 02 will arrive shortly. Updated to the messge I left with Dr Albert del rosario and asked to call the office next Friday if they have not had a call by that time. Pt per the office coordinator receptionist is scheduled for stone removeal on .
--- NOTE | 2022-01-09 14:46 | NUR ---
Received a call from Yo, she received my text and received the orders. All good, jc or Lino ROSS will follow up with Dr. Willis"s on office on Friday.
--- NOTE | 2022-01-09 15:43 | NUR ---
Report called to RN at [facility].
== END 2022-01-09 15:30 | disposition home or self-care (01) | DRG 853 ==
LOC: ED 05:13 → MS 07:13 → CCU 07:13 → MS 07:13
PROVIDERS: Urology; ADMIT Internal Medicine; ATTEND Internal Medicine
PROC: 5A09357 Assistance with Respiratory Ventilation, Less than 24 Consecutive Hours, Continuous Positive Airway Pressure (ICD-10-PCS; 2022-01-05)
PROC: 3E033XZ Introduction of Vasopressor into Peripheral Vein, Percutaneous Approach (ICD-10-PCS; 2022-01-05)
PROC: XW033E5 Introduction of Remdesivir Anti-infective into Peripheral Vein, Percutaneous Approach, New Technology Group 5 (ICD-10-PCS; 2022-01-05)
PROC: 3E03329 Introduction of Other Anti-infective into Peripheral Vein, Percutaneous Approach (ICD-10-PCS; 2022-01-05)
PROC: 0T778DZ Dilation of Left Ureter with Intraluminal Device, Via Natural or Artificial Opening Endoscopic (ICD-10-PCS; principal; 2022-01-06 14:14)
DX: A41.51 Sepsis due to Escherichia coli [E. coli] (principal); I26.93 Single subsegmental thrombotic pulmonary embolism without acute cor pulmonale; R65.21 Severe sepsis with septic shock; U07.1 COVID-19; N13.6 Pyonephrosis; N17.9 Acute kidney failure, unspecified; J96.11 Chronic respiratory failure with hypoxia; J96.12 Chronic respiratory failure with hypercapnia; J44.9 Chronic obstructive pulmonary disease, unspecified; F17.200 Nicotine dependence, unspecified, uncomplicated; D49.512 Neoplasm of unspecified behavior of left kidney; D75.829 Heparin-induced thrombocytopenia, unspecified; T45.515A Adverse effect of anticoagulants, initial encounter
CPT/HCPCS: 36415; 71045; 74177; 76000; 80053; 81001; 82140; 82803; 83605; 83735; 83880; 85025; 85610; 87040; 87088; 87186; 87502; 93005; 93010; 94640; 94660; 94760; 94761; A9270; C1769; C2617; C9803; J0248; J0330; J0692; J0696; J0744; J0780; J1100; J1650; J2001; J2060; J2270; J2370; J2405; J2704; J2930; J3010; J3475; J7030; J7050; J7121; Q9967; U0003

== ENCOUNTER 2022-11-24 04:40 | Emergency (ER) | payer MEDICARE, OTHER ==
[~2022-11-24] VITALS: Ht 175.3 cm; Wt 99.5 kg
--- OUTSIDE RECORDS SUMMARY | ~2022-11-24 | XMS | Continuity of Care Document ---
Demographics + + + | Address | [address] | | | [place] [address] | + + + | Preferred Language | Unknown | + + + | Marital Status | Never | + + + | Orthodoxy Affiliation | Unknown | + + + | Race | White | + + + | Ethnic Group | Not or | + + + Author + + + | Author | [facility] | + + + | Organization | [facility] | + + + | Address | [address] | | | [place] [address] | + + + | Phone | | + + + Care Team Providers + + + + | Care Real Estate Sales Agent Name | Role | Phone | + + + + Unavailable | Unavailable | + + + + Unavailable | Unavailable | + + + + Unavailable | Unavailable | + + + + Unavailable | Unavailable | + + + + Allergies No information. Encounters No information. Functional Status No information. Immunizations No information. Medications + + + + | date | description | facility | + + + + | 2021-09-19 00:00 | ACETAMINOPHEN | [facility] | + + + + | 2021-09-19 00:00 | Cholecalciferol (Vitamin | [facility] | | | D3) | | + + + + | 2022-01-09 00:00 | CIPROFLOXACIN HCL | [facility] | + + + + | 2021-09-19 00:00 | CYANOCOBALAMIN (VITAMIN | [facility] | | | B-12) | | + + + + | 2021-09-19 00:00 | predniSONE | [facility] | + + + + Problems + + + + | date | description | facility | + + + + | 2016-09-24 00:00 | Open fracture of distal | [facility] | | | end of right femur | | + + + + | 2016-09-24 00:00 | Open fracture of distal | [facility] | | | end of right femur | | + + + + | 2019-05-15 00:00 | Abscess of left lung with | [facility] | | | pneumonia | | + + + + | 2019-05-15 00:00 | Abscess of left lung with | [facility] | | | pneumonia | | + + + + | 2021-07-11 00:00 | Alcoholism | [facility] | + + + + | 2021-07-11 00:00 | Alcoholism | [facility] | + + + + | 2021-07-11 00:00 | Encephalopathy | [facility] | + + + + | 2021-07-11 00:00 | Encephalopathy | [facility] | + + + + | 2021-07-11 00:00 | Abscess and cellulitis of | [facility] | | | gluteal region | | + + + + | 2021-07-11 00:00 | Abscess and cellulitis of | [facility] | | | gluteal region | | + + + + | 2021-07-11 00:00 | Rhabdomyolysis | [facility] | + + + + | 2021-07-11 00:00 | Rhabdomyolysis | [facility] | + + + + | 2021-07-11 00:00 | Altered mental status | [facility] | + + + + | 2021-07-11 00:00 | Altered mental status | [facility] | + + + + | 2021-08-28 00:00 | Dental abscess | [facility] | + + + + | 2021-08-28 00:00 | Dental abscess | [facility] | + + + + | 2021-09-15 00:00 | Acute on chronic | [facility] | | | congestive heart failure | | + + + + | 2021-09-15 00:00 | Acute on chronic | [facility] | | | congestive heart failure | | + + + + | 2022-01-05 00:00 | Acute exacerbation of | [facility] | | | chronic obstructive | | | | pulmonary disease | | + + + + | 2022-01-05 00:00 | Respiratory failure with | [facility] | | | hypercapnia | | + + + + | 2022-01-05 00:00 | Infection due to severe | [facility] | | | acute respiratory syndrome | | | | coronavirus 2 (SARS-CoV-2) | | + + + + | 2022-01-06 00:00 | Calculus of ureter | [facility] | + + + + | 2022-09-11 15:57 | HEART FAILURE, UNSPECIFIED | [facility] | | | | | + + + + | 2022-09-11 15:57 | CHRONIC OBSTRUCTIVE | [facility] | | | PULMONARY DISEASE, | | | | UNSPECIFIED | | + + + + | 2022-09-11 15:57 | ENCOUNTER FOR OTHER | [facility] | | | PREPROCEDURAL EXAMINATION | | + + + + | 2022-09-16 07:30 | CALCULUS OF URETER | [facility] | + + + + | 2022-09-16 07:30 | OTHER SPECIFIED DISORDERS | [facility] | | | OF KIDNEY AND | | + + + + | 2022-09-16 07:30 | RETENTION OF URINE, | [facility] | | | UNSPECIFIED | | + + + + | 2022-11-11 10:50 | OTHER SPECIFIED DISORDERS | [facility] | | | OF KIDNEY AND URETER | | + + + + | 2022-11-11 10:50 | OTHER SPECIFIED DISORDERS | [facility] | | | OF K[facility]NEY AND | | + + + + | 2022-11-11 10:50 | LOCALIZED ENLARGED LYMPH | [facility] | | | NODES | | + + + + | 2022-11-11 10:50 | OTHER NONSPECIFIC ABNORMAL | [facility] | | | FINDING OF LUNG FIELD | | + + + + | 2022-11-11 11:30 | OTHER SPECIFIED DISORDERS | [facility] | | | OF KIDNEY AND | | + + + + Procedures + + + + | date | description | facility | + + + + | 2021-07-11 00:00 | INSERTION OF ENDOTRACHEAL | [facility] | | | AIRWAY INTO TRACHEA, VIA | | | | OPENING | | + + + + | 2021-07-12 00:00 | ASSISTANCE WITH | [facility] | | | RESPIRATORY VENTILATION, | | | | 24-96 HRS, CPAP | | + + + + | 2021-07-11 00:00 | RESPIRATORY VENTILATION, | [facility] | | | LESS THAN 24 CONSECUTIVE | | | | HOURS | | + + + + Results/Labs +--------+--------+ +---------+--------+---------+ | test | date | facility | value | unit | notes | +--------+--------+ +---------+--------+---------+ + + | Result panel 1 | + + + + + + + + + | | 2021-07-11 | [facility] | NEGATIVE | (missing) | (missing) | | (unavailable | 13:23 [facility] | | | | + + + + + + + + + | Result panel 2 | + + + + + + + + + | | 2021-07-11 | [facility] | NEGATIVE | (missing) | (missing) | | (unavailable | 13:23 [facility] | | | | + + + + + + + + + | Result panel 3 | + + + + + + + + + | | 2021-07-11 | [facility] | NEGATIVE | (missing) | (missing) | | (unavailable | 13:23 [facility] | | | | + + + + + + + + + | Result panel 4 | + + + + + + + + + | | 2021-07-11 | [facility] | NEGATIVE | (missing) | (missing) | | (unavailable | 13:23 [facility] | | | | + + + + + + + + + | Result panel 5 | + + + + + + + + + | | 2021-07-11 | [facility] | NEGATIVE | (missing) | (missing) | | (unavailable | 13:23 [facility] | | | | + + + + + + + + + | Result panel 6 | + + + + + + + + + | | 2021-07-11 | [facility] | NEGATIVE | (missing) | (missing) | | (unavailable | 13:23 [facility] | | | | + + + + + + + + + | Result panel 7 | + + + + + +--------+ + + | | 2021-07-11 | [facility] | 56.0 | (missing) | (missing) | | (unavailable | 13:23 [facility] | | | | + + + +--------+ + + + + | Result panel 8 | + + + + + +---------+ + + | | 2021-07-11 | [facility] | GERMAIN | (missing) | (missing) | | (unavailable | 13:23 [facility] | | | | + + + +---------+ + + + + | Result panel 9 | + + + + + +---------+ + + | | 2021-07-11 | [facility] | CLEAR | (missing) | (missing) | | (unavailable | 13:23 [facility] | | | | + + + +---------+ + + + + | Result panel 10 | + + + + + + + + + | | 2021-07-11 | [facility] | NEGATIVE | (missing) | (missing) | | (unavailable | 13:23 [facility] | | | | + + + + + + + + + | Result panel 11 | + + + + + + + + + | | 2021-07-11 | [facility] | POSITIVE | (missing) | (missing) | | (unavailable | 13:23 [facility] | | | | + + + + + + + + + | Result panel 12 | + + + + + +---------+ + + | | 2021-07-11 | [facility] | SMALL | (missing) | (missing) | | (unavailable | 13:23 [facility] | | | | + + + +---------+ + + + + | Result panel 13 | + + + + + +---------+ + + | | 2021-07-11 | [facility] | 1.025 | (missing) | (missing) | | (unavailable | 13:23 [facility] | | | | + + + +---------+ + + + + | Result panel 14 | + + + + + + + + + | | 2021-07-11 | [facility] | TRACE-I | (missing) | (missing) | | (unavailable | 13:23 [facility] | | | | + + + + + + + + + | Result panel 15 | + + + + + +-------+ + + | | 2021-07-11 | [facility] | 5.5 | (missing) | (missing) | | (unavailable | 13:23 [facility] | | | | + + + +-------+ + + + + | Result panel 16 | + + + + + +------+ + + | | 2021-07-11 | [facility] | 30 | (missing) | (missing) | | (unavailable | 13:23 [facility] | | | | + + + +------+ + + + + | Result panel 17 | + + + + + +-------+ + + | | 2021-07-11 | [facility] | 2.0 | (missing) | (missing) | | (unavailable | 13:23 [facility] | | | | + + + +-------+ + + + + | Result panel 18 | + + + + + + + + + | | 2021-07-11 | [facility] | NEGATIVE | (missing) | (missing) | | (unavailable | 13:23 [facility] | | | | + + + + + + + + + | Result panel 19 | + + + + + + + + + | | 2021-07-11 | [facility] | NEGATIVE | (missing) | (missing) | | (unavailable | 13:23 [facility] | | | | + + + + + + + + + | Result panel 20 | + + + + + +-------+ + + | | 2021-07-11 | [facility] | 4-6 | (missing) | (missing) | | (unavailable | 13:23 [facility] | | | | + + + +-------+ + + + + | Result panel 21 | + + + + + +-------+ + + | | 2021-07-11 | [facility] | 2-3 | (missing) | (missing) | | (unavailable | 13:23 [facility] | | | | + + + +-------+ + + + + | Result panel 22 | + + + + + + + + + | | 2021-07-11 | [facility] | SQUAMOUS 1+ | (missing) | (missing) | | (unavailable | 13:23 [facility] | | | | + + + + + + + + + | Result panel 23 | + + + + + + + + + | | 2021-07-11 | [facility] | NONE SEEN | (missing) | (missing) | | (unavailable | 13:23 [facility] | | | | + + + + + + + + + | Result panel 24 | + + + + + +------+ + + | | 2021-07-11 | [facility] | 1+ | (missing) | (missing) | | (unavailable | 13:23 [facility] | | | | + + + +------+ + + + + | Result panel 25 | + + + + + + + + + | | 2021-07-11 | [facility] | NONE SEEN | (missing) | (missing) | | (unavailable | 13:23 [facility] | | | | + + + + + + + + + | Result panel 26 | + + + + + +------+ + + | | 2021-07-11 | [facility] | No | (missing) | (missing) | | (unavailable | 13:23 [facility] | | | | + + + +------+ + + + + | Result panel 27 | + + + + + + + + + | | 2021-07-11 | [facility] | CLEAN CATCH | (missing) | (missing) | | (unavailable | 13:23 [facility] | | | | + + + + + + + + + | Result panel 28 | + + + + + +------+ + + | | 2021-07-11 | [facility] | <3 | (missing) | (missing) | | (unavailable | 13:23 [facility] | | | | + + + +------+ + + + + | Result panel 29 | + + + + + + + + + | | 2021-07-11 | [facility] | NEGATIVE | (missing) | (missing) | | (unavailable | 13:23 [facility] | | | | + + + + + + + + + | Result panel 30 | + + + + + + + + + | | 2021-07-11 | [facility] | NEGATIVE | (missing) | (missing) | | (unavailable | 13:23 [facility] | | | | + + + + + + + + + | Result panel 31 | + + + + + + + + + | | 2021-07-11 | [facility] | NEGATIVE | (missing) | (missing) | | (unavailable | 13:23 [facility] | | | | + + + + + + + + + | Result panel 32 | + + + + + + + + + | | 2021-07-11 | [facility] | NEGATIVE | (missing) | (missing) | | (unavailable | 13:23 [facility] | | | | + + + + + + + + + | Result panel 33 | + + + + + + + + + | | 2021-07-11 | [facility] | NEGATIVE | (missing) | (missing) | | (unavailable | 13:23 [facility] | | | | + + + + + + + + + | Result panel 34 | + + + + + + + + + | | 2021-07-11 | [facility] | NEGATIVE | (missing) | (missing) | | (unavailable | 13:23 [facility] | | | | + + + + + + + + + | Result panel 35 | + + + + + + + + + | | 2021-07-11 | [facility] | NEGATIVE | (missing) | (missing) | | (unavailable | 13:23 [facility] | | | | + + + + + + + + + | Result panel 36 | + + + + + +-------+ + + | | 2021-07-11 | [facility] | 1.0 | (missing) | (missing) | | (unavailable | 16:10 [facility] | | | | + + + +-------+ + + + + | Result panel 37 | + + + + + +-------+---------+ + | | 2021-07-11 | [facility] | 3.5 | mg/dL | (missing) | | (unavailable | 16:30 [facility] | | | | + + + +-------+---------+ + + + | Result panel 38 | + + + + + +-------+ + + | | 2021-07-12 | [facility] | 5.8 | (missing) | (missing) | | (unavailable | 05:34 [facility] | | | | + + + +-------+ + + + + | Result panel 39 | + + + + + + + + + | | 2021-07-12 | [facility] | SEE SCANNED | (missing) | (missing) | | (unavailable | 05:34 [facility] | | | | + + + + + + + + + | Result panel 40 | + + + + + + + + + | | 2021-07-12 | [facility] | SEE SCANNED | (missing) | (missing) | | (unavailable | 05:34 [facility] | | | | + + + + + + + + + | Result panel 41 | + + + + + + + + + | | 2021-07-12 | [facility] | SEE SCANNED | (missing) | (missing) | | (unavailable | 05:34 [facility] | | | | + + + + + + + + + | Result panel 42 | + + + + + + + + + | | 2021-07-12 | [facility] | SEE SCANNED | (missing) | (missing) | | (unavailable | 05:34 [facility] | | | | + + + + + + + + + | Result panel 43 | + + + + + + + + + | | 2021-07-12 | [facility] | SEE SCANNED | (missing) | (missing) | | (unavailable | 05:34 [facility] | | | | + + + + + + + + + | Result panel 44 | + + + + + + + + + | | 2021-07-12 | [facility] | | (missing) | (missing) | | (unavailable | 05:34 | [facility] NEGATIVE-SEE | | | | ) | [facility] | REPORT | | | + + + + + + + + + | Result panel 45 | + + + + + + + + + | | 2021-07-12 | [facility] | NEGATIVE | (missing) | (missing) | | (unavailable | 05:34 [facility] | | | | + + + + + + + + + | Result panel 46 | + + + + + + + + + | | 2021-07-12 | [facility] | NONE | (missing) | (missing) | | (unavailable | 05:34 | [facility] DETECTED [facility] | [facility] | [facility] | | | | + + + + + + + + + | Result panel 47 | + + + + + +------+ + + | | 2021-07-12 | [facility] | 12 | (missing) | (missing) | | (unavailable | 07:30 [facility] | | | | + + + +------+ + + + + | Result panel 48 | + + + + + +--------+ + + | | 2021-07-12 | [facility] | 7.42 | (missing) | (missing) | | (unavailable | 07:51 [facility] | | | | + + + +--------+ + + + + | Result panel 49 | + + + + + +--------+ + + | | 2021-07-12 | [facility] | 48.6 | (missing) | (missing) | | (unavailable | 07:51 [facility] | | | | + + + +--------+ + + + + | Result panel 50 | + + + + + +------+ + + | | 2021-07-12 | [facility] | 79 | (missing) | (missing) | | (unavailable | 07:51 [facility] | | | | + + + +------+ + + + + | Result panel 51 | + + + + + +--------+ + + | | 2021-07-12 | [facility] | 31.3 | (missing) | (missing) | | (unavailable | 07:51 [facility] | | | | + + + +--------+ + + + + | Result panel 52 | + + + + + +-------+ + + | | 2021-07-12 | [facility] | 6.2 | (missing) | (missing) | | (unavailable | 07:51 [facility] | | | | + + + +-------+ + + + + | Result panel 53 | + + + + + +--------+ + + | | 2021-07-12 | [facility] | 97.4 | (missing) | (missing) | | (unavailable | 07:51 [facility] | | | | + + + +--------+ + + + + | Result panel 54 | + + + + + +-------+ + + | | 2021-07-12 | [facility] | 50% | (missing) | (missing) | | (unavailable | 07:51 [facility] | | | | + + + +-------+ + + + + | Result panel 55 | + + + + + +--------+ + + | | 2021-07-12 | [facility] | 32.8 | (missing) | (missing) | | (unavailable | 07:51 [facility] | | | | + + + +--------+ + + + + | Result panel 56 | + + + + + +--------+ + + | | 2021-07-12 | [facility] | 16.0 | (missing) | (missing) | | (unavailable | 10:00 [facility] | | | | + + + +--------+ + + + + | Result panel 57 | + + + + + +-----+ + + | | 2021-07-12 | [facility] | O | (missing) | (missing) | | (unavailable | 10:00 | [facility] | | | | + + + +-----+ + + + + | Result panel 58 | + + + + + + + + + | | 2021-07-12 | [facility] | NEGATIVE | (missing) | (missing) | | (unavailable | 10:00 [facility] | | | | + + + + + + + + + | Result panel 59 | + + + + + + + + + | | 2021-07-12 | [facility] | NEGATIVE | (missing) | (missing) | | (unavailable | 10:00 [facility] | | | | + + + + + + + + + | Result panel 60 | + + + + + + + + + | | 2021-07-12 | [facility] | COMPATIBLE | (missing) | (missing) | | (unavailable | 10:00 [facility] | | | | + + + + + + + + + | Result panel 61 | + + + + + + + + + | | 2021-07-12 | [facility] | COMPATIBLE | (missing) | (missing) | | (unavailable | 10:00 [facility] | | | | + + + + + + + + + | Result panel 62 | + + + + + + + + + | | 2021-07-12 | [facility] | BLOOD IN | (missing) | (missing) | | (unavailable | 10:00 | [facility] | | | | + + + + + + + + + | Result panel 63 | + + + + + +--------+ + + | | 2021-07-13 | [facility] | 14.8 | (missing) | (missing) | | (unavailable | 05:19 [facility] | | | | + + + +--------+ + + + + | Result panel 64 | + + + + + +--------+ + + | | 2021-07-13 | [facility] | 1.19 | (missing) | (missing) | | (unavailable | 05:19 [facility] | | | | + + + +--------+ + + + + | Result panel 65 | + + + + + +--------+ + + | | 2021-07-13 | [facility] | 7.44 | (missing) | (missing) | | (unavailable | 11:45 [facility] | | | | + + + +--------+ + + + + | Result panel 66 | + + + + + +-------+ + + | | 2021-07-14 | [facility] | 755 | (missing) | (missing) | | (unavailable | 05:08 [facility] | | | | + + + +-------+ + + + + | Result panel 67 | + + + + + + + + + | | 2021-09-15 | [facility] | NEGATIVE | (missing) | (missing) | | (unavailable | 21:30 [facility] | | | | + + + + + + + + + | Result panel 68 | + + + + + + + + + | | 2021-09-15 | [facility] | NEGATIVE | (missing) | (missing) | | (unavailable | 21:30 [facility] | | | | + + + + + + + + + | Result panel 69 | + + + + + + + + + | | 2021-09-15 | [facility] | NEGATIVE | (missing) | (missing) | | (unavailable | 21:30 [facility] | | | | + + + + + + + + + | Result panel 70 | + + + + + + + + + | | 2021-09-15 | [facility] | NEGATIVE | (missing) | (missing) | | (unavailable | 21:30 [facility] | | | | + + + + + + + + + | Result panel 71 | + + + + + +-------+ + + | | 2021-09-16 | [facility] | 146 | (missing) | (missing) | | (unavailable | 00:56 [facility] | | | | + + + +-------+ + + + + | Result panel 72 | + + + + + +-------+ + + | | 2021-09-16 | [facility] | 7.3 | (missing) | (missing) | | (unavailable | 05:08 [facility] | | | | + + + +-------+ + + + + | Result panel 73 | + + + + + +--------+ + + | | 2021-09-16 | [facility] | 4.40 | (missing) | (missing) | | (unavailable | 05:08 [facility] | | | | + + + +--------+ + + + + | Result panel 74 | + + + + + +--------+ + + | | 2021-09-16 | [facility] | 12.6 | (missing) | (missing) | | (unavailable | 05:08 [facility] | | | | + + + +--------+ + + + + | Result panel 75 | + + + + + +--------+ + + | | 2021-09-16 | [facility] | 39.2 | (missing) | (missing) | | (unavailable | 05:08 [facility] | | | | + + + +--------+ + + + + | Result panel 76 | + + + + + +--------+ + + | | 2021-09-16 | [facility] | 89.2 | (missing) | (missing) | | (unavailable | 05:08 [facility] | | | | + + + +--------+ + + + + | Result panel 77 | + + + + + +--------+ + + | | 2021-09-16 | [facility] | 28.5 | (missing) | (missing) | | (unavailable | 05:08 [facility] | | | | + + + +--------+ + + + + | Result panel 78 | + + + + + +--------+ + + | | 2021-09-16 | [facility] | 32.0 | (missing) | (missing) | | (unavailable | 05:08 [facility] | | | | + + + +--------+ + + + + | Result panel 79 | + + + + + +--------+ + + | | 2021-09-16 | [facility] | 16.9 | (missing) | (missing) | | (unavailable | 05:08 [facility] | | | | + + + +--------+ + + + + | Result panel 80 | + + + + + +-------+ + + | | 2021-09-16 | [facility] | 189 | (missing) | (missing) | | (unavailable | 05:08 [facility] | | | | + + + +-------+ + + + + | Result panel 81 | + + + + + +--------+ + + | | 2021-09-16 | [facility] | 65.9 | (missing) | (missing) | | (unavailable | 05:08 [facility] | | | | + + + +--------+ + + + + | Result panel 82 | + + + + + +--------+ + + | | 2021-09-16 | [facility] | 22.0 | (missing) | (missing) | | (unavailable | 05:08 [facility] | | | | + + + +--------+ + + + + | Result panel 83 | + + + + + +-------+ + + | | 2021-09-16 | [facility] | 8.9 | (missing) | (missing) | | (unavailable | 05:08 [facility] | | | | + + + +-------+ + + + + | Result panel 84 | + + + + + +-------+ + + | | 2021-09-16 | [facility] | 2.5 | (missing) | (missing) | | (unavailable | 05:08 [facility] | | | | + + + +-------+ + + + + | Result panel 85 | + + + + + +-------+ + + | | 2021-09-16 | [facility] | 0.7 | (missing) | (missing) | | (unavailable | 05:08 [facility] | | | | + + + +-------+ + + + + | Result panel 86 | + + + + + +-------+---------+ + | | 2021-09-16 | [facility] | 120 | mg/dL | (missing) | | (unavailable | 05:08 [facility] | | | | + + + +-------+---------+ + + + | Result panel 87 | + + + + + +------+---------+ + | | 2021-09-16 | [facility] | 13 | mg/dL | (missing) | | (unavailable | 05:08 [facility] | | | | + + + +------+---------+ + + + | Result panel 88 | + + + + + +--------+---------+ + | | 2021-09-16 | [facility] | 0.99 | mg/dL | (missing) | | (unavailable | 05:08 | [facility] | | | | + + + +--------+---------+ + + + | Result panel 89 | + + + + + +------+ + + | | 2021-09-16 | [facility] | 82 | (missing) | (missing) | | (unavailable | 05:08 | [facility] | | | | + + + +------+ + + + + | Result panel 90 | + + + + + +---------+ + + | | 2021-09-16 | [facility] | 13.13 | (missing) | (missing) | | (unavailable | 05:08 | [facility] | | | | + + + +---------+ + + + + | Result panel 91 | + + + + + +-------+ + + | | 2021-09-16 | [facility] | 137 | (missing) | (missing) | | (unavailable | 05:08 | [facility] | | | | + + + +-------+ + + + + | Result panel 92 | + + + + + +------+ + + | | 2021-09-16 | [facility] | 96 | (missing) | (missing) | | (unavailable | 05:08 | [facility] | | | | + + + +------+ + + + + | Result panel 93 | + + + + + +------+ + + | | 2021-09-16 | [facility] | 34 | (missing) | (missing) | | (unavailable | 05:08 | [facility] | | | | + + + +------+ + + + + | Result panel 94 | + + + + + +-------+ + + | | 2021-09-16 | [facility] | 9.9 | (missing) | (missing) | | (unavailable | 05:08 | [facility] | | | | + + + +-------+ + + + + | Result panel 95 | + + + + + +-------+---------+ + | | 2021-09-16 | [facility] | 7.9 | mg/dL | (missing) | | (unavailable | 05:08 | [facility] | | | | + + + +-------+---------+ + + + | Result panel 96 | + + + + + +-------+ + + | | 2021-09-16 | [facility] | 6.8 | (missing) | (missing) | | (unavailable | 05:08 | [facility] | | | | + + + +-------+ + + + + | Result panel 97 | + + + + + +-------+ + + | | 2021-09-16 | [facility] | 2.9 | (missing) | (missing) | | (unavailable | 05:08 | [facility] | | | | + + + +-------+ + + + + | Result panel 98 | + + + + + +-------+ + + | | 2021-09-16 | [facility] | 3.9 | (missing) | (missing) | | (unavailable | 05:08 | [facility] | | | | + + + +-------+ + + + + | Result panel 99 | + + + + + +--------+ + + | | 2021-09-16 | [facility] | 0.74 | (missing) | (missing) | | (unavailable | 05:08 | [facility] | | | | + + + +--------+ + + + + | Result panel 100 | + + + + + +-------+ + + | | 2021-09-16 | [facility] | 0.7 | (missing) | (missing) | | (unavailable | 05:08 | [facility] | | | | + + + +-------+ + + + + | Result panel 101 | + + + + + +------+ + + | | 2021-09-16 | [facility] | 27 | (missing) | (missing) | | (unavailable | 05:08 | [facility] | | | | + + + +------+ + + + + | Result panel 102 | + + + + + +------+ + + | | 2021-09-16 | [facility] | 18 | (missing) | (missing) | | (unavailable | 05:08 | [facility] | | | | + + + +------+ + + + + | Result panel 103 | + + + + + +------+ + + | | 2021-09-16 | [facility] | 64 | (missing) | (missing) | | (unavailable | 05:08 | [facility] | | | + + + +------+ + + + + | Result panel 104 | + + + + + +-------+ + + | | 2021-09-16 | [facility] | 3.9 | (missing) | (missing) | | (unavailable | 18:38 | [facility] | | | + + + +-------+ + + + + | Result panel 105 | + + + + + +-------+---------+ + | | 2021-09-16 | [facility] | 2.6 | mg/dL | (missing) | | (unavailable | 18:38 [facility] | | | + + + +-------+---------+ + + + | Result panel 106 | + + + + + +--------+ + + | | 2022-01-05 | [facility] | 83.9 | (missing) | (missing) | | (unavailable | 05:30 [facility] | | | + + + +--------+ + + + + | Result panel 107 | + + + + + +--------+ + + | | 2022-01-05 | [facility] | 12.3 | (missing) | (missing) | | (unavailable | 05:30 [facility] | | | + + + +--------+ + + + + | Result panel 108 | + + + + + +-------+ + + | | 2022-01-05 | [facility] | 1.1 | (missing) | (missing) | | (unavailable | 05:30 [facility] | | | + + + +-------+ + + + + | Result panel 109 | + + + + + +-------+ + + | | 2022-01-05 | [facility] | 2.5 | (missing) | (missing) | | (unavailable | 05:30 [facility] | | | + + + +-------+ + + + + | Result panel 110 | + + + + + +-------+ + + | | 2022-01-05 | [facility] | 0.2 | (missing) | (missing) | | (unavailable | 05:30 [facility] | | | + + + +-------+ + + + + | Result panel 111 | + + + + + +--------+ + + | | 2022-01-05 | [facility] | 12.6 | (missing) | (missing) | | (unavailable | 05:30 [facility] | | | + + + +--------+ + + + + | Result panel 112 | + + + + + +--------+ + + | | 2022-01-05 | [facility] | 0.97 | (missing) | (missing) | | (unavailable | 05:30 [facility] | | | + + + +--------+ + + + + | Result panel 113 | + + + + + +---------+ + + | | 2022-01-05 | [facility] | 7.285 | (missing) | (missing) | | (unavailable | 05:30 [facility] | | | + + + +---------+ + + + + | Result panel 114 | + + + + + +--------+ + + | | 2022-01-05 | [facility] | 10.0 | (missing) | (missing) | | (unavailable | 05:30 [facility] | | | + + + +--------+ + + + + | Result panel 115 | + + + + + + + + + | | 2022-01-05 | [facility] | POSITIVE | (missing) | (missing) | | (unavailable | 05:30 [facility] | | | + + + + + + + + + | Result panel 116 | + + + + + + + + + | | 2022-01-05 | [facility] | NEGATIVE | (missing) | (missing) | | (unavailable | 05:30 [facility] | | | + + + + + + + + + | Result panel 117 | + + + + + + + + + | | 2022-01-05 | [facility] | NEGATIVE | (missing) | (missing) | | (unavailable | 05:30 [facility] | | | + + + + + + + + + | Result panel 118 | + + + + + + + + + | | 2022-01-05 | [facility] | NEGATIVE | (missing) | (missing) | | (unavailable | 05:30 [facility] | | | + + + + + + + + + | Result panel 119 | + + + + + + + + + | | 2022-01-05 | [facility] | YELLOW | (missing) | (missing) | | (unavailable | 05:53 | [facility] | | | + + + + + + + + + | Result panel 120 | + + + + + + + + + | | 2022-01-05 | [facility] | SL CLOUDY | (missing) | (missing) | | (unavailable | 05:53 | [facility] | | | + + + + + + + + + | Result panel 121 | + + + + + + + + + | | 2022-01-05 | [facility] | NEGATIVE | (missing) | (missing) | | (unavailable | 05:53 [facility] | | | + + + + + + + + + | Result panel 122 | + + + + + + + + + | | 2022-01-05 | [facility] | NEGATIVE | (missing) | (missing) | | (unavailable | 05:53 [facility] | | | + + + + + + + + + | Result panel 123 | + + + + + + + + + | | 2022-01-05 | [facility] | NEGATIVE | (missing) | (missing) | | (unavailable | 05:53 [facility] | | | + + + + + + + + + | Result panel 124 | + + + + + +---------+ + + | | 2022-01-05 | [facility] | 1.020 | (missing) | (missing) | | (unavailable | 05:53 [facility] | | | + + + +---------+ + + + + | Result panel 125 | + + + + + +---------+ + + | | 2022-01-05 | [facility] | SMALL | (missing) | (missing) | | (unavailable | 05:53 [facility] | | | + + + +---------+ + + + + | Result panel 126 | + + + + + +-------+ + + | | 2022-01-05 | [facility] | 6.0 | (missing) | (missing) | | (unavailable | 05:53 [facility] | | | + + + +-------+ + + + + | Result panel 127 | + + + + + + + + + | | 2022-01-05 | [facility] | NEGATIVE | (missing) | (missing) | | (unavailable | 05:53 [facility] | | | + + + + + + + + + | Result panel 128 | + + + + + + + + + | | 2022-01-05 | [facility] | NORMAL | (missing) | (missing) | | (unavailable | 05:53 [facility] | | | + + + + + + + + + | Result panel 129 | + + + + + + + + + | | 2022-01-05 | [facility] | POSITIVE | (missing) | (missing) | | (unavailable | 05:53 [facility] | | | + + + + + + + + + | Result panel 130 | + + + + + +---------+ + + | | 2022-01-05 | [facility] | LARGE | (missing) | (missing) | | (unavailable | 05:53 [facility] | | | + + + +---------+ + + + + | Result panel 131 | + + + + + +-------+ + + | | 2022-01-05 | [facility] | 2-3 | (missing) | (missing) | | (unavailable | 05:53 [facility] | | | + + + +-------+ + + + + | Result panel 132 | + + + + + +---------+ + + | | 2022-01-05 | [facility] | 12-20 | (missing) | (missing) | | (unavailable | 05:53 [facility] | | | + + + +---------+ + + + + | Result panel 133 | + + + + + +-----+ + + | | 2022-01-05 | [facility] | 0 | (missing) | (missing) | | (unavailable | 05:53 [facility] | | | + + + +-----+ + + + + | Result panel 134 | + + + + + + + + + | | 2022-01-05 | [facility] | NONE SEEN | (missing) | (missing) | | (unavailable | 05:53 [facility] | | | + + + + + + + + + | Result panel 135 | + + + + + +------+ + + | | 2022-01-05 | [facility] | 2+ | (missing) | (missing) | | (unavailable | 05:53 [facility] | | | + + + +------+ + + + + | Result panel 136 | + + + + + + + + + | | 2022-01-05 | [facility] | NONE SEEN | (missing) | (missing) | | (unavailable | 05:53 [facility] | | | + + + + + + + + + | Result panel 137 | + + + + + +-------+ + + | | 2022-01-05 | [facility] | Yes | (missing) | (missing) | | (unavailable | 05:53 [facility] | | | + + + +-------+ + + + + | Result panel 138 | + + + + + + + + + | | 2022-01-05 | [facility] | CLEAN CATCH | (missing) | (missing) | | (unavailable | 05:53 [facility] | | | + + + + + + + + + | Result panel 139 | + + + + + +-------+ + + | | 2022-01-05 | [facility] | 2.7 | (missing) | (missing) | | (unavailable | 08:01 | [facility] | | | + + + +-------+ + + + + | Result panel 140 | + + + + + + + + + | | 2022-01-06 | [facility] | PRESENT | (missing) | (missing) | | (unavailable | 06:15 | [facility] | | | + + + + + + + + + | Result panel 141 | + + + + + +-------+---------+ + | | 2022-01-06 | [facility] | 1.6 | mg/dL | (missing) | | (unavailable | 06:15 | [facility] | | | + + + +-------+---------+ + + + | Result panel 142 | + + + + + + + + + | | 2022-01-07 | [facility] | PRESENT | (missing) | (missing) | | (unavailable | 05:36 [facility] | | | + + + + + + + + + | Result panel 143 | + + + + + +-------+---------+ + | | 2022-01-07 | [facility] | 152 | mg/dL | (missing) | | (unavailable | 05:36 [facility] | | | + + + +-------+---------+ + + + | Result panel 144 | + + + + + +------+---------+ + | | 2022-01-07 | [facility] | 26 | mg/dL | (missing) | | (unavailable | 05:36 [facility] | | | + + + +------+---------+ + + + | Result panel 145 | + + + + + +--------+---------+ + | | 2022-01-07 | [facility] | 1.21 | mg/dL | (missing) | | (unavailable | 05:36 [facility] | | | + + + +--------+---------+ + + + | Result panel 146 | + + + + + +------+ + + | | 2022-01-07 | [facility] | 64 | (missing) | (missing) | | (unavailable | 05:36 [facility] | | | + + + +------+ + + + + | Result panel 147 | + + + + + +---------+ + + | | 2022-01-07 | [facility] | 21.48 | (missing) | (missing) | | (unavailable | 05:36 [facility] | | | + + + +---------+ + + + + | Result panel 148 | + + + + + +-------+ + + | | 2022-01-07 | [facility] | 138 | (missing) | (missing) | | (unavailable | 05:36 [facility] | | | + + + +-------+ + + + + | Result panel 149 | + + + + + +-------+ + + | | 2022-01-07 | [facility] | 4.9 | (missing) | (missing) | | (unavailable | 05:36 [facility] | | | + + + +-------+ + + + + | Result panel 150 | + + + + + +-------+ + + | | 2022-01-07 | [facility] | 103 | (missing) | (missing) | | (unavailable | 05:36 [facility] | | | + + + +-------+ + + + + | Result panel 151 | + + + + + +------+ + + | | 2022-01-07 | [facility] | 31 | (missing) | (missing) | | (unavailable | 05:36 [facility] | | | + + + +------+ + + + + | Result panel 152 | + + + + + +-------+ + + | | 2022-01-07 | [facility] | 8.9 | (missing) | (missing) | | (unavailable | 05:36 [facility] | | | + + + +-------+ + + + + | Result panel 153 | + + + + + +-------+---------+ + | | 2022-01-07 | [facility] | 8.0 | mg/dL | (missing) | | (unavailable | 05:36 [facility] | | | + + + +-------+---------+ + + + | Result panel 154 | + + + + + +-------+ + + | | 2022-01-07 | [facility] | 6.0 | (missing) | (missing) | | (unavailable | 05:36 [facility] | | | + + + +-------+ + + + + | Result panel 155 | + + + + + +-------+ + + | | 2022-01-07 | [facility] | 2.2 | (missing) | (missing) | | (unavailable | 05:36 [facility] | | | + + + +-------+ + + + + | Result panel 156 | + + + + + +-------+ + + | | 2022-01-07 | [facility] | 3.8 | (missing) | (missing) | | (unavailable | 05:36 [facility] | | | + + + +-------+ + + + + | Result panel 157 | + + + + + +--------+ + + | | 2022-01-07 | [facility] | 0.58 | (missing) | (missing) | | (unavailable | 05:36 [facility] | | | + + + +--------+ + + + + | Result panel 158 | + + + + + +-------+ + + | | 2022-01-07 | [facility] | 0.3 | (missing) | (missing) | | (unavailable | 05:36 [facility] | | | + + + +-------+ + + + + | Result panel 159 | + + + + + +------+ + + | | 2022-01-07 | [facility] | 57 | (missing) | (missing) | | (unavailable | 05:36 [facility] | | | + + + +------+ + + + + | Result panel 160 | + + + + + +------+ + + | | 2022-01-07 | [facility] | 17 | (missing) | (missing) | | (unavailable | 05:36 [facility] | | | + + + +------+ + + + + | Result panel 161 | + + + + + +------+ + + | | 2022-01-07 | [facility] | 63 | (missing) | (missing) | | (unavailable | 05:36 [facility] | | | + + + +------+ + + + + | Result panel 162 | + + + + + +-----+ + + | | 2022-01-08 | [facility] | 3 | (missing) | (missing) | | (unavailable | 05:20 [facility] | | | + + + +-----+ + + + + | Result panel 163 | + + + + + + + + + | | 2022-01-08 | [facility] | PRESENT | (missing) | (missing) | | (unavailable | 05:20 [facility] | | | + + + + + + + + + | Result panel 164 | + + + + + +--------+ + + | | 2022-01-09 | [facility] | 12.8 | (missing) | (missing) | | (unavailable | 05:20 [facility] | | | + + + +--------+ + + + + | Result panel 165 | + + + + + +--------+ + + | | 2022-01-09 | [facility] | 4.45 | (missing) | (missing) | | (unavailable | 05:20 [facility] | | | + + + +--------+ + + + + | Result panel 166 | + + + + + +--------+ + + | | 2022-01-09 | [facility] | 12.5 | (missing) | (missing) | | (unavailable | 05:20 [facility] | | | + + + +--------+ + + + + | Result panel 167 | + + + + + +--------+ + + | | 2022-01-09 | [facility] | 39.6 | (missing) | (missing) | | (unavailable | 05:20 [facility] | | | + + + +--------+ + + + + | Result panel 168 | + + + + + +--------+ + + | | 2022-01-09 | [facility] | 89.0 | (missing) | (missing) | | (unavailable | 05:20 [facility] | | | + + + +--------+ + + + + | Result panel 169 | + + + + + +--------+ + + | | 2022-01-09 | [facility] | 28.2 | (missing) | (missing) | | (unavailable | 05:20 [facility] | | | + + + +--------+ + + + + | Result panel 170 | + + + + + +--------+ + + | | 2022-01-09 | [facility] | 31.7 | (missing) | (missing) | | (unavailable | 05:20 [facility] | | | + + + +--------+ + + + + | Result panel 171 | + + + + + +--------+ + + | | 2022-01-09 | [facility] | 15.0 | (missing) | (missing) | | (unavailable | 05:20 [facility] | | | + + + +--------+ + + + + | Result panel 172 | + + + + + +-------+ + + | | 2022-01-09 | [facility] | 128 | (missing) | (missing) | | (unavailable | 05:20 [facility] | | | + + + +-------+ + + + + | Result panel 173 | + + + + + +------+ + + | | 2022-01-09 | [facility] | 77 | (missing) | (missing) | | (unavailable | 05:20 [facility] | | | + + + +------+ + + + + | Result panel 174 | + + + + + +------+ + + | | 2022-01-09 | [facility] | 14 | (missing) | (missing) | | (unavailable | 05:20 [facility] | | | + + + +------+ + + + + | Result panel 175 | + + + + + +-----+ + + | | 2022-01-09 | [facility] | 7 | (missing) | (missing) | | (unavailable | 05:20 [facility] | | | + + + +-----+ + + + + | Result panel 176 | + + + + + +-----+ + + | | 2022-01-09 | [facility] | 2 | (missing) | (missing) | | (unavailable | 05:20 [facility] | | | + + + +-----+ + + + + | Result panel 177 | + + + + + + + + + | | 2022-01-09 | [facility] | PRESENT | (missing) | (missing) | | (unavailable | 05:20 [facility] | | | + + + + + + + Social History No information. Vital Signs + + + +---------+ | date | measurement | value | units | + + + +---------+ | 2021-07-27 00:00 | BMI | 38.4 | kg/m2 | + + + +---------+ | 2021-07-27 00:00 | height_metric | 175.26 | cm | + + + +---------+ | 2021-07-27 00:00 | height_standard | 69 | in | + + + +---------+ | 2021-07-27 00:00 | weight_metric | 118 | kg | + + + +---------+ | 2021-07-27 00:00 | weight_standard | 260.15 | lb | + + + +---------+ | 2021-08-06 00:00 | BP_diastolic | 69 | mmHg | + + + +---------+ | 2021-08-06 00:00 | BP_systolic | 126 | mmHg | + + + +---------+ | 2021-08-06 00:00 | heart_rate | 87 | /min | + + + +---------+ | 2021-08-06 00:00 | o2_saturation | 94 | % | + + + +---------+ | 2021-08-06 00:00 | respiration_rate | 16 | /min | + + + +---------+ | 2021-08-06 00:00 | temperature_metric | 36.39 | C | | | | | | + + + +---------+ | 2021-08-06 00:00 | | 97.5 | F | | | temperature_standar | | | | | d | | | + + + +---------+ | 2021-08-28 00:00 | BMI | 38.4 | kg/m2 | + + + +---------+ | 2021-08-28 00:00 | BP_diastolic | 69 | mmHg | + + + +---------+ | 2021-08-28 00:00 | BP_systolic | 121 | mmHg | + + + +---------+ | 2021-08-28 00:00 | heart_rate | 87 | /min | + + + +---------+ | 2021-08-28 00:00 | height_metric | 175.26 | cm | + + + +---------+ | 2021-08-28 00:00 | height_standard | 69 | in | + + + +---------+ | 2021-08-28 00:00 | o2_saturation | 90 | % | + + + +---------+ | 2021-08-28 00:00 | respiration_rate | 18 | /min | + + + +---------+ | 2021-08-28 00:00 | temperature_metric | 36.94 | C | | | | | | + + + +---------+ | 2021-08-28 00:00 | | 98.5 | F | | | temperature_standar | | | | | d | | | + + + +---------+ | 2021-08-28 00:00 | weight_metric | 117.93 | kg | + + + +---------+ | 2021-08-28 00:00 | weight_standard | 259.99 | lb | + + + +---------+ | 2021-08-28 00:00 | weight_standard | 260 | lb | + + + +---------+ | 2021-09-15 00:00 | BMI | 31.9 | kg/m2 | + + + +---------+ | 2021-09-15 00:00 | height_metric | 175.26 | cm | + + + +---------+ | 2021-09-15 00:00 | height_standard | 69 | in | + + + +---------+ | 2021-09-15 00:00 | weight_metric | 98 | kg | + + + +---------+ | 2021-09-15 00:00 | weight_standard | 216.05 | lb | + + + +---------+ | 2021-09-19 00:00 | BP_diastolic | 87 | mmHg | + + + +---------+ | 2021-09-19 00:00 | BP_systolic | 142 | mmHg | + + + +---------+ | 2021-09-19 00:00 | heart_rate | 94 | /min | + + + +---------+ | 2021-09-19 00:00 | o2_saturation | 95 | % | + + + +---------+ | 2021-09-19 00:00 | respiration_rate | 16 | /min | + + + +---------+ | 2021-09-19 00:00 | temperature_metric | 36.61 | C | | | | | | + + + +---------+ | 2021-09-19 00:00 | | 97.9 | F | | | temperature_standar | | | | | d | | | + + + +---------+ | 2022-01-05 00:00 | BMI | 33.9 | kg/m2 | + + + +---------+ | 2022-01-05 00:00 | height_metric | 175.26 | cm | + + + +---------+ | 2022-01-05 00:00 | height_standard | 69 | in | + + + +---------+ | 2022-01-05 00:00 | weight_metric | 104.1 | kg | + + + +---------+ | 2022-01-05 00:00 | weight_standard | 229.5 | lb | + + + +---------+ | 2022-01-09 00:00 | BP_diastolic | 81 | mmHg | + + + +---------+ | 2022-01-09 00:00 | BP_systolic | 144 | mmHg | + + + +---------+ | 2022-01-09 00:00 | heart_rate | 114 | /min | + + + +---------+ | 2022-01-09 00:00 | o2_saturation | 93 | % | + + + +---------+ | 2022-01-09 00:00 | respiration_rate | 20 | /min | + + + +---------+ | 2022-01-09 00:00 | temperature_metric | 36.67 | C | | | | | | + + + +---------+ | 2022-01-09 00:00 | | 98 | F | | | temperature_standar | | | | | d | | | + + + +---------+"
--- OUTSIDE RECORDS SUMMARY | ~2022-11-24 | XMS | Continuity of Care Document ---
Demographics + + + | Address | [address] | | | [place] [address] | + + + | Preferred Language | Unknown | + + + | Marital Status | Never | + + + | Gnosticism Affiliation | Unknown | + + + | Race | White | + + + | Ethnic Group | Not or | + + + Author + + + | Author | [facility] | + + + | Organization | [facility] | + + + | Address | [address] | | | [place] [address] | + + + | Phone | | + + + Care Team Providers + + + + | Care Marine Designer Name | Role | Phone | + [...] + | 2021-09-19 00:00 | ACETAMINOPHEN | [facility] | + + + + | 2021-09-19 00:00 | Cholecalciferol (Vitamin | [facility] | | | D3) | | + + + + | 2022-01-09 00:00 | CIPROFLOXACIN HCL | [facility] | + + + + | 2021-09-19 00:00 | CYANOCOBALAMIN (VITAMIN | [facility] | | | B-12) | | + + + + | 2021-09-19 00:00 | predniSONE | [facility] | + + + + Problems + + + + | date | description | facility | + + + + | 2016-09-24 00:00 | Open fracture of distal | [facility] | | | end of right femur | | + + + + | 2016-09-24 00:00 | Open fracture of distal | [facility] | | | end of right femur | | + + + + | 2019-05-15 00:00 | Abscess of left lung with | [facility] | | | pneumonia | | + + + + | 2019-05-15 00:00 | Abscess of left lung with | [facility] | | | pneumonia | | + + + + | 2021-07-11 00:00 | Alcoholism | [facility] | + + + + | 2021-07-11 00:00 | Alcoholism | [facility] | + + + + | 2021-07-11 00:00 | Encephalopathy | [facility] | + + + + | 2021-07-11 00:00 | Encephalopathy | [facility] | + + + + | 2021-07-11 00:00 | Abscess and cellulitis of | [facility] | | | gluteal region | | + + + + | 2021-07-11 00:00 | Abscess and cellulitis of | [facility] | | | gluteal region | | + + + + | 2021-07-11 00:00 | Rhabdomyolysis | [facility] | + + + + | 2021-07-11 00:00 | Rhabdomyolysis | [facility] | + + + + | 2021-07-11 00:00 | Altered mental status | [facility] | + + + + | 2021-07-11 00:00 | Altered mental status | [facility] | + + + + | 2021-08-28 00:00 | Dental abscess | [facility] | + + + + | 2021-08-28 00:00 | Dental abscess | [facility] | + + + + | 2021-09-15 00:00 | Acute on chronic | [facility] | | | congestive heart failure | | + + + + | 2021-09-15 00:00 | Acute on chronic | [facility] | | | congestive heart failure | | + + + + | 2022-01-05 00:00 | Acute exacerbation of | [facility] | | | chronic obstructive | | | | pulmonary disease | | + + + + | 2022-01-05 00:00 | Respiratory failure with | [facility] | | | hypercapnia | | + + + + | 2022-01-05 00:00 | Infection due to severe | [facility] | | | acute respiratory syndrome | | | | coronavirus 2 (SARS-CoV-2) | | + + + + | 2022-01-06 00:00 | Calculus of ureter | [facility] | + + + + | [...] 2021-07-11 00:00 | INSERTION OF ENDOTRACHEAL | [facility] | | | AIRWAY INTO TRACHEA, VIA | | | | OPENING | | + + + + | 2021-07-12 00:00 | ASSISTANCE WITH | [facility] | | | RESPIRATORY VENTILATION, | | | | [id number] HRS, CPAP | | + + + + | 2021-07-11 00:00 | RESPIRATORY VENTILATION, | [facility] | | | LESS THAN 24 [...] (missing) | | (unavailable | 07:51 | Ebre | | | | | ) | [...] (missing) | | (unavailable | 18:38 | Ebre | | | | | ) | [...] (missing) | | (unavailable | 05:53 | Ebre | | | | | ) | [...]
[~2022-11-24 04:40] MED LIST changes: +CIPROFLOXACIN500 MG PO; +HYDROCODON-ACE1 EA13 PO; +PAIN RELIEF500 M1 PO; +PEPTO-BISM262 MG/15 PO; +SENNA8.6 MG PO; +VITAMIN B-122000 MC1 PO
[2022-11-24 05:16] LABS: BILIRUBIN, URINE NEGATIVE (negative); BLOOD/HGB, URINE MODERATE (Negative); KETONE, URINE NEGATIVE (Negative); LEUK ESTERASE, URINE LARGE (negative); NITRITE, URINE POSITIVE (negative); PH, URINE 7.5 (5-7)
[2022-11-24 05:21] LABS: EPITHELIAL CELLS, URINE 0 /lpf (0-1+); RED BLOOD CELLS, URINE 0-1 /hpf (0-5); REFLEX CULTURE, URINE Yes (No); WHITE BLOOD CELLS, URINE >50 /HPF (0-5)
[2022-11-24] MEDS ORDERED: PYRIDIUM100 MG PO (05:22)
[2022-11-24] MEDS ORDERED: CIPRO500 MG PO (05:22)
[2022-11-24 05:47] VITALS: BP 129/82
== END 2022-11-24 06:45 | disposition home or self-care (01) ==
LOC: ED 04:40
PROVIDERS: Internal Medicine
DX: N39.0 Urinary tract infection, site not specified (principal); J44.9 Chronic obstructive pulmonary disease, unspecified; F17.200 Nicotine dependence, unspecified, uncomplicated; Z96.0 Presence of urogenital implants; Z79.899 Other long term (current) drug therapy
CPT/HCPCS: 51702; 51798; 81001; 87088; 99283-25

== ENCOUNTER 2022-12-27 08:29 | Emergency (ER) | payer MEDICARE, OTHER ==
[~2022-12-27] VITALS: Ht 175.3 cm; Wt 99.8 kg
[~2022-12-27 08:29] MED LIST changes: +CIPRO500 MG PO; +PYRIDIUM100 MG PO
[2022-12-27] MEDS ORDERED: NYSTATIN15 G1 TOP (08:40)
[2022-12-27] MEDS ORDERED: NYSTATIN1000000 UN TOP (08:40)
[2022-12-27 10:40] VITALS: BP 129/83
== END 2022-12-27 10:41 | disposition home or self-care (01) ==
LOC: ED 08:29
DX: B37.2 Candidiasis of skin and nail (principal); L30.3 Infective dermatitis; J44.9 Chronic obstructive pulmonary disease, unspecified; F17.200 Nicotine dependence, unspecified, uncomplicated; Z79.899 Other long term (current) drug therapy
CPT/HCPCS: 99283; A9270

== ENCOUNTER 2023-07-25 16:07 | Emergency (ER) | payer MEDICARE, OTHER ==
[~2023-07-25] VITALS: Ht 175.3 cm; Wt 85.0 kg
[~2023-07-25 16:07] MED LIST changes: +NYSTATIN1000000 UN TOP; +NYSTATIN15 G1 TOP
[2023-07-25] MEDS ORDERED: HYDROXYZINE PAM25 MG PO (16:20)
[2023-07-25] MEDS ORDERED: VITAMIN B-12500 MC2 PO (16:21)
[2023-07-25] MEDS ORDERED: ALEVAZOL56.7 GM TP (16:21)
[2023-07-25 17:00] LABS: HEMATOCRIT 44.1 % (35.0-50.0); HEMOGLOBIN 14.6 g/dL (12.0-18.0); MCH 29.2 (27-36); MCHC 33.2 g/dl (30-36); PLATELET COUNT 270 K/uL (140-440); RBC 5.01 M/ul (4.3-5.7); RDW 14.8 (10.5-15.0)
[2023-07-25] MEDS ORDERED: KETOROLAC TROMETHAMINE 30 MG/ML VIAL IV ONE (17:00)
[2023-07-25] MEDS ORDERED: SODIUM CHLORIDE 0.9% 1,000 ML IV ONE (17:00)
[2023-07-25 17:15] LABS: BANDS, MANUAL DIFF 2; LYMPHOCYTES, MANUAL DIFF 5; MONOCYTES, MANUAL DIFF 11; NEUTROPHILS, MANUAL DIFF 82
[2023-07-25 17:19] LABS: ALBUMIN 2.4 g/dL (3.4-5.0); ALBUMIN/GLOBULIN RATIO 0.46 (1.1-2.4); ALCOHOL, MEDICAL <3 ng/dL (<3); ALKALINE PHOSPHATASE 129 U/L (46-116); ALT (SGPT) 49 U/L (14-59); ANION GAP 12.6 (7-21); AST (SGOT) 40 U/L (15-37); BILIRUBIN, TOTAL 1.2 ng/dL (0.2-1.0); BUN/CREATININE RATIO 20.45 (6.0-28.6); CALCIUM 9.2 mg/dL (8.5-10.1); CARBON DIOXIDE 29 mmol/L (21-32); CHLORIDE 93 mmol/L (98-107); GLOMERULAR FILTRATION RATE,EST 31 mL/min (>60); POTASSIUM 3.6 mmol/L (3.5-5.1); PROTEIN, TOTAL 7.6 g/dL (6.4-8.2); UREA NITROGEN 45 mg/dL (7-18)
[2023-07-25 17:33] LABS: BILIRUBIN, URINE NEGATIVE (negative); BLOOD/HGB, URINE MODERATE (Negative); KETONE, URINE NEGATIVE (Negative); LEUK ESTERASE, URINE POSITVE (negative); NITRITE, URINE NEGATIVE (negative); PH, URINE 8.5 (5-7)
[2023-07-25 17:39] LABS: AMPHETAMINES, URINE NEGATIVE (NEGATIVE); BARBITURATES, URINE NEGATIVE (NEGATIVE); BENZODIAZEPINE, URINE NEGATIVE (NEGATIVE); BUPRENORPHINE, URINE NEGATIVE (NEGATIVE); CANNABINOID, URINE NEGATIVE (NEGATIVE); COCAINE, URINE NEGATIVE (NEGATIVE); ECSTASY, URINE NEGATIVE (NEGATIVE); EPITHELIAL CELLS, URINE 0 /lpf (0-1+); FENTANYL, URINE NEGATIVE (NEGATIVE); METHADONE, URINE NEGATIVE (NEGATIVE); OPIATES, URINE NEGATIVE (NEGATIVE); OXYCODONE, URINE NEGATIVE (NEGATIVE); PHENCYCLIDINE, URINE NEGATIVE (NEGATIVE)
[2023-07-25 17:40] LABS: BACTERIA, URINE 3+ /hpf (negative); CASTS, URINE NONE SEEN \\lpf; COLLECTION TYPE, URINE CLEAN CATCH; CRYSTALS, URINE AMORPHOUS PHOSPH 3+ (0-1+); REFLEX CULTURE, URINE Yes (No)
[2023-07-25] MEDS ORDERED: CEFDINIR300 MG PO (18:41)
[2023-07-25] MEDS ORDERED: CEFTRIAXONE/SODIUM CHLORIDE 2 GM/100 ML PIGGYBACK IV ONE (18:45)
[2023-07-25 20:12] VITALS: BP 118/82
--- NOTE | 2023-07-28 07:24 | EKG ---
[facility] [address] [facility] [place] [address] Signed Sinus tachycardia Low voltage QRS Inferior infarct , age undetermined Abnormal ECG When compared with ECG of 11-SEP-2022 15:32, Inferior infarct is now present Confirmed by Amanuel Stanley MD ([id number]) on 07/28/2023 7:24:59 AM Electronically Signed By: AMANUEL STANLEY 07/28/23 0724 PATIENT NAME: MELE SANZ Electrocardiogram DATE OF : 52 PHYSICIAN: AMANUEL STANLEY REPORT #: [id number] REPORT IS CONFIDENTIAL AND NOT TO BE RELEASED WITHOUT AUTHORIZATION
== END 2023-07-25 20:12 | disposition home or self-care (01) ==
LOC: ED 16:07
PROVIDERS: Emergency Medicine
DX: N39.0 Urinary tract infection, site not specified (principal); F17.200 Nicotine dependence, unspecified, uncomplicated; J44.9 Chronic obstructive pulmonary disease, unspecified; Z79.899 Other long term (current) drug therapy
CPT/HCPCS: 36415; 71045; 80053; 80307; 81001; 84484; 85025; 87077; 87088; 87186; 93005; 93010; 96365; 96375; 99285-25; G0480; J0696; J1885; J7030

== ENCOUNTER 2024-10-04 18:19 | Emergency (ER) | payer MEDICARE, OTHER ==
[~2024-10-04] VITALS: Ht 175.3 cm; Wt 70.0 kg
[~2024-10-04 18:19] MED LIST changes: +ALEVAZOL56.7 GM TP; +CEFDINIR300 MG PO; +HYDROXYZINE PAM25 MG PO; +VITAMIN B-12500 MC2 PO
[2024-10-04] MEDS ORDERED: ALBUTEROL SULFATE 0.5% 2.5 MG/0.5 ML VIAL INH ONE (18:30)
[2024-10-04] MEDS ORDERED: DAPTOmycin 500 MG/10 ML VIAL IV ONE (18:30)
[2024-10-04] MEDS ORDERED: PIPERACILLIN/TAZOBACTAM 4.5 GM in SODIUM CHLORIDE 0.9% 100 ML IV ONE ×2 (18:30→22:45)
[2024-10-04] MEDS ORDERED: SODIUM CHLORIDE 0.9% 100 ML IV ONE (18:39)
[2024-10-04] MEDS ORDERED: PIPERACILLIN/TAZOBACTAM 4.5 GM VIAL ONE (18:39)
[2024-10-04 18:40] LABS: MCH 28.0 PG (25.7-32.2); MCHC 29.9 g/dL (32.3-36.5); MCV 93.7 fL (79.0-92.2); RBC 4.75 M/uL (4.63-6.08)
[2024-10-04] MEDS ORDERED: IPRATROPIUM BROMIDE 2.5 ML VIAL INH ONE (18:45)
[2024-10-04 18:53] LABS: INR 1.48 (0.80-1.30); PROTIME 17.4 Sec (11.2-14.2)
[2024-10-04 18:55] LABS: ALT (SGPT) 11.0 U/L (14-59); AST (SGOT) 18.0 U/L (15-37); GLOMERULAR FILTRATION RATE,EST 20.0 mL/min (>60); PROTEIN, TOTAL 6.6 g/dL (6.4-8.2); UREA NITROGEN 31.0 mg/dL (7-18)
[2024-10-04 18:56] LABS: BANDS, MANUAL DIFF 12; LYMPHOCYTES, MANUAL DIFF 12; MONOCYTES, MANUAL DIFF 12; NEUTROPHILS, MANUAL DIFF 64
[2024-10-04 18:59] LABS: LACTIC ACID, BLOOD 8.5 mmol/L (0.4-2.0)
[2024-10-04] MEDS ORDERED: NOREPINEPHRINE BITARTRATE 250 ML IV SCH (19:15)
[2024-10-04] MEDS ORDERED: MORPHINE SULFATE 4 MG/ML VIAL IV ONE (19:15)
[2024-10-04] MEDS ORDERED: SODIUM CHLORIDE 0.9% 1,000 ML IV PRN (19:15)
[2024-10-04] MEDS ORDERED: MIDAZOLAM HCL 2 MG/2 ML VIAL ONE (20:25)
[2024-10-04] MEDS ORDERED: KETAMINE HCL IN NACL, ISO-OSM 100 ML IV SCH (20:30)
[2024-10-04] MEDS ORDERED: METOPROLOL TARTRATE 5 MG/5 ML VIAL IV ONE (20:30)
[2024-10-04] MEDS ORDERED: EPINEPHrine HCL 4 MG in DEXTROSE 5% 250 ML IV SCH (20:45)
[2024-10-04 20:57] LABS: BASE EXCESS, BLOOD GAS -8.8 mmol/L (-2-2); HCO3, BLOOD GAS 22.2 mmol/L (22-26); O2 SATURATION, BLOOD GAS 88.5 % (95.0-100.0); PCO2, BLOOD GAS 72.8 mmHg (35-45); PH, BLOOD GAS 7.09 (7.35-7.45); PO2, BLOOD GAS 73 mmHg (80-100); TOTAL CO2, BLOOD GAS 24.4
[2024-10-04 20:58] LABS: OXYGEN RECEIVED, BLOOD GAS 100%
[2024-10-04] MEDS ORDERED: ROCURONIUM BROMIDE 50 MG/5 ML SYR IV ONE (21:00)
[2024-10-04] MEDS ORDERED: ETOMIDATE 40 MG/20 ML VIAL IV ONE (21:00)
[2024-10-04] MEDS ORDERED: MIDAZOLAM HCL 2 MG/2 ML VIAL IV ONE (21:00)
[2024-10-04] MEDS ORDERED: EPIPEN AUTO INJECTOR 0.3 MG/0.3 ML ML IM ONE (21:15)
[2024-10-04 21:35] LABS: LACTIC ACID, BLOOD 4.5 mmol/L (0.4-2.0)
[2024-10-04 22:02] LABS: ABO O; ANTIBODY SCREEN NEGATIVE; RH NEGATIVE
[2024-10-04] MEDS ORDERED: POTASSIUM CHLORIDE 20 MEQ/100 ML BAG IV ONE (22:30)
[2024-10-04] MEDS ORDERED: SODIUM BICARBONATE 50 MEQ/50 ML SYR IV ONE (22:30)
[2024-10-05 00:41] LABS: BASE EXCESS, BLOOD GAS -4.0 mmol/L (-2-2); HCO3, BLOOD GAS 24.6 mmol/L (22-26); PCO2, BLOOD GAS 58.6 mmHg (35-45); PH, BLOOD GAS 7.23 (7.35-7.45); PO2, BLOOD GAS 199 mmHg (80-100); TOTAL CO2, BLOOD GAS 26.4
[2024-10-05 00:43] LABS: BLOOD/HGB, URINE LARGE (Negative); KETONE, URINE NEGATIVE (Negative); LEUK ESTERASE, URINE MODERATE (negative); NITRITE, URINE NEGATIVE (negative)
[2024-10-05 00:45] LABS: O2 SATURATION, BLOOD GAS > 100.0 % (95.0-100.0); OXYGEN RECEIVED, BLOOD GAS 60
[2024-10-05 00:48] LABS: EPITHELIAL CELLS, URINE SQUAMOUS 1+ /lpf (0-1+)
[2024-10-05 00:50] LABS: BACTERIA, URINE 1+ /hpf (negative); CASTS, URINE NONE SEEN \\lpf; CRYSTALS, URINE NONE SEEN (0-1+); REFLEX CULTURE, URINE Yes (No)
[2024-10-05 01:42] LABS: MCH 28.1 PG (25.7-32.2); MCHC 30.5 g/dL (32.3-36.5); MCV 92.3 fL (79.0-92.2); RBC 4.41 M/uL (4.63-6.08)
[2024-10-05] MEDS ORDERED: ACETAMINOPHEN 1,000 MG/100 ML VIAL IV ONE (01:45)
[2024-10-05 01:55] LABS: BANDS, MANUAL DIFF 18; LYMPHOCYTES, MANUAL DIFF 8; MONOCYTES, MANUAL DIFF 6; NEUTROPHILS, MANUAL DIFF 68
[2024-10-05] MEDS ORDERED: PROPOFOL IV SCH (02:00)
[2024-10-05 02:11] LABS: GLOMERULAR FILTRATION RATE,EST 27.0 mL/min (>60); UREA NITROGEN 30.0 mg/dL (7-18)
[2024-10-05 02:46] VITALS: BP 107/67
== END 2024-10-05 03:15 | disposition short-term general hospital (02) ==
LOC: ED 18:19
PROVIDERS: Emergency Medicine; Family Medicine
DX: A41.9 Sepsis, unspecified organism (principal); R65.21 Severe sepsis with septic shock; J96.01 Acute respiratory failure with hypoxia; N17.9 Acute kidney failure, unspecified; N18.9 Chronic kidney disease, unspecified; J96.02 Acute respiratory failure with hypercapnia; J69.0 Pneumonitis due to inhalation of food and vomit; J44.9 Chronic obstructive pulmonary disease, unspecified; N13.2 Hydronephrosis with renal and ureteral calculous obstruction; N28.89 Other specified disorders of kidney and ureter; K63.89 Other specified diseases of intestine; I27.20 Pulmonary hypertension, unspecified; E87.29 Other acidosis; K92.2 Gastrointestinal hemorrhage, unspecified; N39.0 Urinary tract infection, site not specified; F17.200 Nicotine dependence, unspecified, uncomplicated; Z79.899 Other long term (current) drug therapy
CPT/HCPCS: 31500; 36415; 36556; 36600; 51702; 51798; 70450; 71045; 71250; 74176; 74177; 80048; 80053; 81001; 82803; 83605; 83735; 84484; 85025; 85610; 85730; 86850; 86900; 86901; 87040; 87088; 94644; 94799; 96368; 99285-25; C1751; J0131; J0171; J0878; J2250; J2270; J2543; J2704; J2919; J3480; J3490; J7030; J7060